=== PATIENT | female | born 1935 | race Caucasian/White ===

== ENCOUNTER 2017-05-24 12:26 | Inpatient (IN) | payer MEDICARE, BC ==
[~2017-05-24] VITALS: Ht 149.9 cm; Wt 75.5 kg
[2017-05-24] VITALS (9 sets, daily range): BP systolic 119–147; BP diastolic 58–65; PULSE 59–64; RESP 16–20; TEMP 96.9–97.7; O2SAT 98–100
[2017-05-24] MEDS ORDERED: IODIXANOL 320 MG/ML 10 ML VIAL (for Rad CT) IVCONTRAST ONE (12:27)
[2017-05-24] MEDS ORDERED: SODIUM CHLOR 0.9% 1000 ML INJ 1,000 ML IV ONE (12:40)
--- NOTE | 2017-05-24 12:45 | PD ---
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 PATIENT BROUGHT IN, AND CALLED A STROKE ALERT. PATIENT WAS NOT RESPONSIVE AAND UNABLE TO OBTAIN FURTHER HISTORY....ALL HISTORY OBTAINED FROM [place] PCP: [facility] PMHX: REPEATED FALLS, THROMBOCYTOPENIC, TIB FIB FX TO RIGHT WITH BOOT NONOPERATIVE DUE TO HIGH RISK OF BLEED, DEMENTIA PFSH Social History Tobacco Use: No Allergies-Medications (Allergen,Severity, Reaction): Coded Allergies: No Known Allergies (Unverified , 05/26/17) Reported Meds & Prescriptions Reported Meds & Active Scripts Active Reported Tramadol (Tramadol HCl) 50 Mg Tab 50 Mg PO Q6H PRN Spironolactone 25 Mg Tab 12.5 Mg PO DAILY Rosuvastatin (Rosuvastatin Calcium) 40 Mg Tab 40 Mg PO HS Mirtazapine 15 Mg Tab 15 Mg PO HS Isosorbide Mononitrate 20 Mg Tab 30 Mg PO DAILY Take 2 doses 7 hours apart. Carvedilol 25 Mg Tab 25 Mg PO BID Aspirin 81 (Aspirin) 81 Mg Tabdr 81 Mg PO DAILY Review of Systems ROS Limitations: Altered Mental Status Except as stated in HPI: all other systems reviewed are Neg Physical Exam Exam Limitations: Altered Mental Status Narrative GENERAL: FULL CODE STATUS SKIN: Warm and dry. MULTIPLE AREAS OF ECHYMOSIS OF VARIOUS STAGES OF HEALING HEAD: Atraumatic. Normocephalic. EYES: Pupils equal and round. No scleral icterus. No injection or drainage. ENT: No nasal bleeding or discharge. Mucous membranes pink and moist. NECK: Trachea midline. No JVD. CARDIOVASCULAR: Regular rate and rhythm. RESPIRATORY: No accessory muscle use. Clear to auscultation. Breath sounds equal bilaterally. GASTROINTESTINAL: Abdomen soft, non-tender, nondistended. MUSCULOSKELETAL: Extremities without clubbing, cyanosis, or edema. No obvious deformities. NEUROLOGICAL INITIALLY UNRESPONSIVE GCS: E-4 V-1 M-1 YET ABLE TO TAKE INDEPENDANT BREATHS WITH GOOD VENTILATORY EFFORT.... PSYCHIATRIC: Appropriate mood and affect; insight and judgment normal. Data Data Last Documented VS Orders Orders Diet Npo (05/24/17 Lunch) Activity Bed Rest (05/24/17 ) Electrocardiogram (05/24/17 ) I-Stat Creatinine (05/24/17 12:40) I-Stat Profile (05/24/17 12:40) Prothrombin Time / Inr (Pt) (05/24/17 12:40) Act Partial Throm Time (Ptt) (05/24/17 12:40) Complete Blood Count With Diff (05/24/17 12:40) Fibrinogen (05/24/17 12:40) Creatine Kinase (Cpk) (05/24/17 12:40) Troponin I (05/24/17 12:40) Ua Includes Microscopic (05/24/17 12:40) Drug Screen, Random Urine (05/24/17 12:40) Type And Screen (05/24/17 12:40) Ct Brain W/O Iv Contrast(Rout) (05/24/17 ) Chest, Single Ap (05/24/17 ) Cta Brain W Iv Contrast W 3d (05/24/17 12:40) Cta Neck W Iv Contrast W 3d (05/24/17 12:40) Consult Neurology (05/24/17 ) Blood Glucose (05/24/17 12:40) Ecg Monitoring (05/24/17 12:40) Neuro Checks Q2HX12,Q4H (05/24/17 12:40) Nursing Bedside Swallow Assess .ONCE (05/24/17 12:40) Iv Access Insert/Monitor (05/24/17 12:40) NPO (05/24/17 12:40) Oximetry (05/24/17 12:40) Oxygen Administration (05/24/17 12:40) Sodium Chlor 0.9% 1000 Ml Inj (Ns 1000 M (05/24/17 12:40) Resp Oxygen Nimesh C Titrat 1-4 L (05/24/17 12:40) Cath For Specimen (05/24/17 12:40) (Hub Use Only)Inp Phy Cons/Ref (05/24/17 13:07) Iodixanol 320 Inj (Rad Ct) (Visipaque 32 (05/24/17 12:27) Lactic Acid Sepsis Protocol (05/24/17 13:52) Admit Order (Ed Use Only) (05/24/17 14:12) Sales Operations Assistant / Telemetry PRABHAKAR.Q8H (05/24/17 14:12) Activity Bed Rest (05/24/17 14:12) Notify Dr: Other (05/24/17 14:12) Labs Laboratory Tests Test 05/24/17 12:42 05/24/17 13:45 White Blood Count 4.4 TH/MM3 Red Blood Count 2.94 MIL/MM3 Hemoglobin 9.5 GM/DL Bedside Hemoglobin 8.5 G/DL Hematocrit 27.6 % Bedside Hematocrit 25.0 % Mean Corpuscular Volume 94.1 FL Mean Corpuscular Hemoglobin 32.4 PG Mean Corpuscular Hemoglobin Concent 34.4 % Red Cell Distribution Width 16.0 % Platelet Count 71 TH/MM3 Mean Platelet Volume 10.7 FL Neutrophils (%) (Auto) 69.2 % Lymphocytes (%) (Auto) 16.4 % Monocytes (%) (Auto) 11.3 % Eosinophils (%) (Auto) 2.7 % Basophils (%) (Auto) 0.4 % Neutrophils # (Auto) 3.1 TH/MM3 Lymphocytes # (Auto) 0.7 TH/MM3 Monocytes # (Auto) 0.5 TH/MM3 Eosinophils # (Auto) 0.1 TH/MM3 Basophils # (Auto) 0.0 TH/MM3 CBC Comment AUTO DIFF Differential Comment AUTO DIFF CONFIRMED Platelet Estimate LOW Platelet Morphology Comment NORMAL Polychromasia 2.0 % Prothrombin Time 13.6 SEC Prothromb Time International Ratio 1.2 RATIO Activated Partial Thromboplast Time 29.6 SEC Fibrinogen 248 mg/dL Bedside Sodium 139 MMOL/L Bedside Potassium 3.7 MMOL/L Bedside Chloride 100 MMOL/L Bedside Blood Urea Nitrogen 14 MG/DL Bedside Creatinine 0.7 MG/DL Bedside Glucose 126 MG/DL Lactic Acid Level 1.0 mmol/L Total Creatine Kinase 161 U/L Troponin I 0.12 NG/ML Urine Color YELLOW Urine Turbidity CLEAR Urine pH 5.5 Urine Specific [place] 1.014 Urine Protein 30 mg/dL Urine Glucose (UA) NEG mg/dL Urine Ketones NEG mg/dL Urine Occult Blood NEG Urine Nitrite NEG Urine Bilirubin NEG Urine Urobilinogen LESS THAN 2.0 MG/DL Urine Leukocyte Esterase NEG Urine RBC LESS THAN 1 /hpf Urine WBC 1 /hpf Urine Mucus FEW /lpf Urine Opiates Screen NEG Urine Barbiturates Screen NEG Urine Amphetamines Screen NEG Urine Benzodiazepines Screen NEG Urine Cocaine Screen NEG Urine Cannabinoids Screen NEG MDM Medical Decision Making Medical Screen Exam Complete: Yes Emergency Medical Condition: Yes Medical Record Reviewed: Yes Interpretation(s) PACED RHYTHM 60'S Differential Diagnosis ICH V CVA V SEIZURE V ELECTROLYTE ABNL V SYNCOPE V STEMI V NONSTEMI Narrative Course PATIENT CT NEG FOR ICH/ANEURYSM OR THROMBOTIC EPISODE. NOT A CANDIDATE FOR THROMBOLYTICS DUE TO RAPID RESOLUTION OF SYMPTOMS (RESOLVED WITHIN 45MIN OF ONSET). PATIENT BECAME A/O X3 AND GCS 14/15, AND ABLE TO FOLLOW COMMANDS, KNEW HER NAME/ BUT THOUGHT IT WAS 2011. Critical Care Narrative CRITICAL CARE NOTE: With evaluation of the patient, labs, EKG, receipt of radiologic studies, administration of medications, reevaluation the patient and discussion of the patient with the admitting physicians, the total critical care time was [45] minutes. Time to perform other separately billable procedures was not included in the critical care time. Physician Communication Physician Communication D/W DR GILDARDO PAYAN WHO AGREED PT IS NOT A CANDIDATE FOR LYTICS, D/W DR MULLEN WHO WILL ADMIT Diagnosis Primary Impression: AMS RESOLVED Additional Impressions: NONSTEMI POSSIBLE SYNCOPE VS SEIZURE Admitting Information Admitting Physician Requests: Admit Dagoberto Solares MD May 24, 2017 12:45
[2017-05-24 12:58] LABS: I-STAT POTASSIUM 3.7 MMOL/L (3.5-4.9)
--- NOTE | 2017-05-24 13:01 | RADRPT ---
EXAM DATE/TIME: 05/24/2017 12:49 [facility] COMPARISON: No previous studies available for comparison. INDICATIONS : Stroke alert, unresponsive. History of dementia. RADIATION DOSE: 32.56 CTDIvol (mGy) This report was called by Dr Engel to Dr Solares at 1256 MEDICAL HISTORY : Non-responsive. SURGICAL HISTORY : Non-responsive. ENCOUNTER: Initial ACUITY: 1 day PAIN SCALE: Non-responsive LOCATION: cranial TECHNIQUE: Multiple contiguous axial images were obtained of the head. Using automated exposure control and adj ustment of the mA and/or kV according to patient size, radiation dose was kept as low as reasonably a chievable to obtain optimal diagnostic quality images. DICOM format image data is available electro nically for review and comparison. FINDINGS: Atrophy is observed. Ventriculomegaly. Periventricular low attenuation change involving both cerebral hemispheres. Area of encephalomalacia involving the right frontal lobe. Small chronic lacunar infarc tion involving the left cerebellar hemisphere. No hemorrhage, acute infarction, or mass. Chronic pans inus disease observed. Calvarium is intact. CONCLUSION: 1. No hemorrhage or acute infarction. 2. Atrophy, chronic small vessel ischemic change, and right frontal encephalomalacia. 3. Chronic [place] sinus disease. Hay Engel Jr., MD on May 24, 2017 at 12:55 Board Certified Radiologist. This report was verified electronically.
[2017-05-24 13:08] LABS: APTT (PATIENT) 29.6 SEC (24.3-30.1); AUTOMATED NEUTROPHIL # 3.1 TH/MM3 (1.8-7.7); BASOPHIL % 0.4 % (0.0-2.0); EOSINOPHIL # 0.1 TH/MM3 (0-0.4); EOSINOPHIL % 2.7 % (0.0-4.0); HEMATOCRIT 27.6 % (35.0-46.0); INTERNATIONAL NORMALIZED RATIO 1.2 RATIO; LYMPH % 16.4 % (9.0-44.0); LYMPHOCYTE # 0.7 TH/MM3 (1.0-4.8); MEAN CELL VOLUME 94.1 FL (80.0-100.0); MEAN CORPUSCULAR HEMOGLOBIN 32.4 PG (27.0-34.0); MEAN CORPUSCULAR HGB CONC 34.4 % (32.0-36.0); MONO % 11.3 % (0.0-8.0); NEUT % 69.2 % (16.0-70.0); PLATELET COUNT 71 TH/MM3 (150-450); PROTHROMBIN TIME - PATIENT 13.6 SEC (9.8-11.6); RED BLOOD COUNT 2.94 MIL/MM3 (4.00-5.30); WHITE BLOOD COUNT 4.4 TH/MM3 (4.0-11.0)
[2017-05-24 13:23] LABS: HEMO FLAGS AUTO DIFF
--- NOTE | 2017-05-24 13:27 | RADRPT ---
EXAM DATE/TIME: 05/24/2017 12:49 [facility] COMPARISON: No previous studies available for comparison. INDICATIONS : Stroke alert found unresponsive IV CONTRAST: 50 cc Visipaque (iodixanol) IV ; Cumulative dose for multiple exams. RADIATION DOSE: 27.00 CTDIvol (mGy) ; Combined studies MEDICAL HISTORY : Non-responsive. SURGICAL HISTORY : Non-responsive. ENCOUNTER: Initial ACUITY: 1 day PAIN SCALE: Non-responsive LOCATION: cranial TECHNIQUE: Volumetric scanning was performed using a multi-row detector CT scanner. The data was post processed with a variety of visualization algorithms including full volume maximum intensity projection, multi -planar sliding thin slab reformation, curved planar reformation, and surface rendering techniques. Using automated exposure control and adjustment of the mA and/or kV according to patient size, radiat ion dose was kept as low as reasonably achievable to obtain optimal diagnostic quality images. DICO M format image data is available electronically for review and comparison. FINDINGS: There is excellent visualization of the major intracranial arteries out to the second-order branch ve ssels. There is no evidence for aneurysm, vessel truncation or stenosis, and no evidence for vascula r malformation. CONCLUSION: No luminal filling defects to suggest embolus or thrombus. A wet reading was supplied to Dr. Solares at 1324 hrs. Hay Engel Jr., MD on May 24, 2017 at 13:23 Board Certified Radiologist. This report was verified electronically.
--- NOTE | 2017-05-24 13:30 | RADRPT ---
EXAM DATE/TIME: 05/24/2017 12:49 [facility] COMPARISON: No previous studies available for comparison. INDICATIONS : Stroke alert, unresponsive IV CONTRAST: 50 cc Visipaque (iodixanol) IV ; Cumulative dose for multiple exams. RADIATION DOSE: 27.78 CTDIvol (mGy) ; Combined studies MEDICAL HISTORY : Non-responsive. SURGICAL HISTORY : Non-responsive. ENCOUNTER: Initial ACUITY: 1 day PAIN SCALE: Non-responsive LOCATION: neck Elevated flow velocities and ICA/CCA ratios have been found to correlate with increased degrees of vessel stenosis, calculated as percentage of diameter relative to a normal segment of distal ICA/CCA. TECHNIQUE: Volumetric scanning was performed using a multirow detector CT scanner. The data was post processed with a variety of visualization algorithms including full-volume maximum intensity projection, multip lanar sliding thin-slab reformation, curved-planar reformation, and surface-rendering techniques. Us ing automated exposure control and adjustment of the mA and/or kV according to patient size, radiatio n dose was kept as low as reasonably achievable to obtain optimal diagnostic quality images. DICOM f ormat image data is available electronically for review and comparison. FINDINGS: AORTIC ARCH: There is a three-vessel origin of the great vessels from the aorta. No evidence of ostial narrowing. RIGHT CAROTID: The common carotid artery is intact. The carotid bulb has a normal configuration without ulceration or narrowing. The internal carotid artery has calcified plaque without hemodynamically significant s tenosis. No ulceration. The external carotid artery is intact. LEFT CAROTID: The common carotid artery is intact. The carotid bulb has a normal configuration without ulceration or narrowing. The internal carotid artery has calcified plaque without hemodynamically significant s tenosis. No ulceration. The external carotid artery is intact. VERTEBRALS: The vertebral arteries have a symmetric diameter. No stenotic lesions are seen. CONCLUSION: 1. Calcified plaque involving the ICA origins without a hemodynamically significant stenosis. Hay Engel Jr., MD on May 24, 2017 at 13:26 Board Certified Radiologist. This report was verified electronically.
--- NOTE | 2017-05-24 13:30 | RADRPT ---
EXAM DATE/TIME: 05/24/2017 12:59 [facility] COMPARISON: No previous studies available for comparison. INDICATIONS : Stroke alert. MEDICAL HISTORY : Unresponsive. SURGICAL HISTORY : Pacemaker. ENCOUNTER: Initial ACUITY: 1 day PAIN SCORE: Non-responsive. LOCATION: Bilateral chest FINDINGS: There is dense consolidation in the left lower lung causing loss of delineation of the medial and mid left hemidiaphragm. Hazy opacity is present in the right lower lung with some blunting of the costo phrenic angle on both sides suggesting bilateral pleural effusions. The heart is normal size. Bipol ar cardiac pacer leads. Stent device overlies the lower mediastinum. CONCLUSION: 1. Left lower lobar consolidation. 2. Probable small bilateral pleural effusions. Hay Langford MD on May 24, 2017 at 13:27 Board Certified Radiologist. This report was verified electronically.
[2017-05-24 13:46] LABS: PLATELET ESTIMATE SMEAR LOW (NORMAL); PLATELET MORPHOLOGY NORMAL (NORMAL); SCAN/DIFF AUTO DIFF CONFIRMED
[2017-05-24 14:14] LABS: BLOOD, URINE NEG (NEG); GLUCOSE,URINE NEG (NEG); KETONE, URINE NEG (NEG); MUCUS URINE FEW /lpf (OCC); NITRITE,URINE NEG (NEG); PH, URINE 5.5 (5.0-8.5); URINE COLOR YELLOW (YELLW/STRAW)
[2017-05-24] MEDS ORDERED: SODIUM CHLORIDE 0.9% FLUSH 10 ML FLUSH IV FLUSH PRN (14:15)
[2017-05-24] MEDS ORDERED: ROSU1TAB10 PO (15:46)
[2017-05-24] MEDS ORDERED: ISOS20TA PO (15:46)
[2017-05-24] MEDS ORDERED: TRAM50TA PO (15:46)
[2017-05-24] MEDS ORDERED: CARV25TA PO (15:46)
[2017-05-24] MEDS ORDERED: MIRTA15 PO (15:46)
[2017-05-24] MEDS ORDERED: SPIR25TA PO (15:46)
[2017-05-24] MEDS ORDERED: APLXABAN (15:46)
[2017-05-24] MEDS ORDERED: ASPI1TAB57 PO (15:46)
[2017-05-24] MEDS: SODIUM CHLORIDE 0.9% FLUSH 10 ML FLUSH IV FLUSH SCH (21:33)
[2017-05-25] VITALS (7 sets, daily range): BP systolic 106–152; BP diastolic 53–74; PULSE 60–71; RESP 18–22; TEMP 97.2–98.3; O2SAT 92–100
--- NOTE | 2017-05-25 00:26 | MB ---
cc: UMBERTO HANLEY DATE OF CONSULTATION 05/24/17 HISTORY OF PRESENT ILLNESS Ms. Mays is an 81-year-old white female with a history of dementia, was brought from te longterm after she became unresponsive. She was seen in the emergency room and did not receive thrombolytics since her symptoms resolved within 45 minutes of onset. She denies any chest pain or shortness or breath. She states she is feeling well. PAST MEDICAL HISTORY Positive for dementia, recurrent falls, thrombocytopenia. Tib/fib fracture treated conservatively due to high risk of bleeding with surgery. MEDICATIONS Include: 1. Eliquis 2.5 milligrams twice a day. 2. Mirtazapine. 3. Tramadol. 4. Aspirin 81 milligrams a day. 5. Spironolactone. 6. Carvedilol isosorbide. 7. Rosuvastatin. ALLERGIES None. SOCIAL HISTORY The patient does not smoke. She does not drink alcohol. FAMILY HISTORY Negative for heart disease. REVIEW OF SYSTEMS Otherwise negative. PHYSICAL EXAMINATION VITAL SIGNS: Blood pressure 141/63, pulse 61 and regular. HEENT: Negative. 2+ carotid upstrokes. No bruits. LUNGS: Clear. HEART: Regular with no murmur or gallop. ABDOMEN: Soft. No bruits. EXTREMITIES: With mild 1 to 2+ LE edema. The right lower extremity is in a boot. 1-2+ pulses. NEUROLOGIC: Grossly nonfocal. CARDIOLOGY STUDIES EKG was reviewed and showed ventricular pacing. LABORATORY DATA Hemoglobin 9.5, potassium 3.7, creatinine 0.7, troponin 0.12. DIAGNOSIS 1. Altered mental status. 2. Possible TIA. 3. Slightly abnormal troponin. 4. Thrombocytopenia. 5. Dementia. 6. History of tib/fib fracture. 7. Recurrent falls. DISPOSITION Ms. Mays will be monitored on telemetry. She has not had any angina or heart failure symptoms. We will obtain echocardiogram to evaluate her left ventricle function. We will also obtain serial enzymes and EKGs. I will follow her for cardiology during her hospitalization. Umberto Hanley MD OQ/EO /7:45 PM /12:08 AM JANAE
--- NOTE | 2017-05-25 00:35 | MB ---
cc: MILAN EWING M.D. DATE OF CONSULTATION 05/24/17 HISTORY OF PRESENT ILLNESS She is an 81-year-old seen in neurological consultation. Case discussed with Dr. Solares on a couple of occasions as she came as a stroke alert. The patient was transferred from the nursing facility where she has been recovering apparently since she had a right tibial fracture recently. She was unresponsive and brought to the hospital. Initially, she was nonverbal, though moving the extremities and establishing eye contact. She went for a CT brain which was negative for acute findings, it showed right frontal encephalomalacia. We did not feel she was a candidate for TPA because of multiple factors including her medications which were Eliquis and she also had the thrombocytopenia. After the initial evaluation then with stimulation the patient became verbal and seemed to be more in baseline state. I obtained additional history from nursing staff. Apparently, she has been intermittently more confused in the past couple of weeks but she also has a history of dementia. NEUROLOGICAL EXAMINATION The patient's neurological exam this evening about 1/2 hour ago showed her to be awake, appeared alert, verbal but poorly oriented. She knew she was in the hospital but did not know the name. She thought she was in [place]. She was oriented to her name but did not know her exact age. She did not know why she came to the hospital. She followed simple commands and she was pleasant, gripped and moved all four extremities. She has a right lower extremity boot and there is some edema on the left lower extremity. Reflexes were 1+, plantar response probably flexor on the left. She was able to count fingers on the left and right. ASSESSMENT Mostly resolved encephalopathic change. Diagnostic considerations include TIA, seizure, metabolic encephalopathy on the setting of an underlying dementia. We will order an EEG. The CT angio head and neck were essentially unremarkable. She will possibly have an MRI brain without contrast. Otherwise, supportive general medical care. She is to have physical therapy. I will follow the neurological care. The management and indications for Eliquis is medical and not neurological at this point. Thank you for asking us to assist in her care. Milan Ewing MD OFC/EO /8:17 PM /12:22 AM
[2017-05-25 03:53] LABS: BASOPHIL % 0.5 % (0.0-2.0); EOSINOPHIL # 0.1 TH/MM3 (0-0.4); EOSINOPHIL % 2.6 % (0.0-4.0); HEMATOCRIT 26.2 % (35.0-46.0); LYMPH % 13.6 % (9.0-44.0); LYMPHOCYTE # 0.7 TH/MM3 (1.0-4.8); MEAN CELL VOLUME 94.2 FL (80.0-100.0); MEAN CORPUSCULAR HEMOGLOBIN 31.6 PG (27.0-34.0); MEAN CORPUSCULAR HGB CONC 33.5 % (32.0-36.0); MONO % 9.9 % (0.0-8.0); NEUT % 73.4 % (16.0-70.0); PLATELET COUNT 78 TH/MM3 (150-450); RED BLOOD COUNT 2.78 MIL/MM3 (4.00-5.30); RED CELL DISTRIBUTION WIDTH 16.6 % (11.6-17.2); WHITE BLOOD COUNT 5.5 TH/MM3 (4.0-11.0)
[2017-05-25 04:15] LABS: HEMO FLAGS DIFF FINAL
[2017-05-25 04:25] LABS: ANION GAP 10 MEQ/L (5-15); BICARBONATE 24.2 MEQ/L (21.0-32.0); BLOOD UREA NITROGEN 14 MG/DL (7-18); CHLORIDE 107 MEQ/L (98-107); GLOMERULAR FILTRATION RATE 97 ML/MIN (>89); POTASSIUM 3.6 MEQ/L (3.5-5.1); SODIUM (NA) 141 MEQ/L (136-145)
[2017-05-25 04:28] LABS: HDL CHOLESTEROL 26.2 MG/DL (40.0-60.0)
[2017-05-25 04:31] LABS: LDL CHOLESTEROL 12 MG/DL (0-99)
--- NOTE | 2017-05-25 07:39 | PD.CARD.PN ---
Subjective Subjective Remarks No CP or SOB, mild confusion, comfortable Objective Medications Current Medications Medications (Trade) Dose Ordered Sig/Linda Route Start Time Stop Time Status Last Admin (NS Flush) 2 ml BID IV FLUSH 05/24/17 21:00 05/24/17 21:33 (NS Flush) 2 ml UNSCH PRN IV FLUSH 05/24/17 14:15 (Tylenol) 500 mg Q4H PRN PO 05/24/17 14:15 Vital Signs / I&O Vital Signs Date Time Temp Pulse Resp B/P (MAP) Pulse Ox O2 Delivery O2 Flow Rate FiO2 05/25/17 04:46 98.3 63 22 138/60 (86) 98 05/25/17 00:00 97.7 60 22 106/53 (70) 98 05/24/17 20:15 97.5 61 18 139/65 (89) 99 05/24/17 20:00 60 05/24/17 16:25 97.7 61 16 141/63 (89) 100 05/24/17 16:20 05/24/17 16:09 64 20 119/60 (79) 100 Nasal Cannula 2.00 05/24/17 15:00 60 05/24/17 14:00 60 20 130/60 (83) 100 Nasal Cannula 2.00 05/24/17 13:43 98 Nasal Cannula 2.00 05/24/17 13:42 96.9 59 20 129/58 (81) 98 Nasal Cannula 2.00 05/24/17 12:45 Nasal Cannula 2.00 05/24/17 12:44 60 18 147/61 (89) I/O 05/24/17 05/24/17 05/24/17 05/25/17 05/25/17 05/25/17 07:00 15:00 23:00 07:00 15:00 23:00 Intake Total 1072 ml Output Total 650 ml 100 ml Balance -650 ml 972 ml Intake Oral 120 ml IV Total 952 ml Output Urine Total 650 ml 100 ml # Bowel Movements 1 Physical Exam GENERAL: In NAD SKIN: Warm and dry. HEAD: Normocephalic. EYES: No scleral icterus. No injection or drainage. NECK: Supple, trachea midline. No JVD or lymphadenopathy. CARDIOVASCULAR: Regular rate and rhythm without murmurs, gallops, or rubs. RESPIRATORY: Breath sounds equal bilaterally. No accessory muscle use. GASTROINTESTINAL: Abdomen soft, non-tender, nondistended. MUSCULOSKELETAL: No cyanosis, or edema. Mildly confused Laboratory Laboratory Tests Test 05/24/17 12:42 05/24/17 13:45 05/24/17 17:52 05/24/17 19:52 White Blood Count 4.4 TH/MM3 Red Blood Count 2.94 MIL/MM3 Hemoglobin 9.5 GM/DL Bedside Hemoglobin 8.5 G/DL Hematocrit 27.6 % Bedside Hematocrit 25.0 % Mean Corpuscular Volume 94.1 FL Mean Corpuscular Hemoglobin 32.4 PG Mean Corpuscular Hemoglobin Concent 34.4 % Red Cell Distribution Width 16.0 % Platelet Count 71 TH/MM3 Mean Platelet Volume 10.7 FL Neutrophils (%) (Auto) 69.2 % Lymphocytes (%) (Auto) 16.4 % Monocytes (%) (Auto) 11.3 % Eosinophils (%) (Auto) 2.7 % Basophils (%) (Auto) 0.4 % Neutrophils # (Auto) 3.1 TH/MM3 Lymphocytes # (Auto) 0.7 TH/MM3 Monocytes # (Auto) 0.5 TH/MM3 Eosinophils # (Auto) 0.1 TH/MM3 Basophils # (Auto) 0.0 TH/MM3 CBC Comment AUTO DIFF Differential Comment AUTO DIFF CONFIRMED Platelet Estimate LOW Platelet Morphology Comment NORMAL Polychromasia 2.0 % Prothrombin Time 13.6 SEC Prothromb Time International Ratio 1.2 RATIO Activated Partial Thromboplast Time 29.6 SEC Fibrinogen 248 mg/dL Bedside Sodium 139 MMOL/L Bedside Potassium 3.7 MMOL/L Bedside Chloride 100 MMOL/L Bedside Blood Urea Nitrogen 14 MG/DL Bedside Creatinine 0.7 MG/DL Bedside Glucose 126 MG/DL Lactic Acid Level 1.0 mmol/L Total Creatine Kinase 161 U/L Troponin I 0.12 NG/ML 0.10 NG/ML Urine Color YELLOW Urine Turbidity CLEAR Urine pH 5.5 Urine Specific [place] 1.014 Urine Protein 30 mg/dL Urine Glucose (UA) NEG mg/dL Urine Ketones NEG mg/dL Urine Occult Blood NEG Urine Nitrite NEG Urine Bilirubin NEG Urine Urobilinogen LESS THAN 2.0 MG/DL Urine Leukocyte Esterase NEG Urine RBC LESS THAN 1 /hpf Urine WBC 1 /hpf Urine Mucus FEW /lpf Urine Opiates Screen NEG Urine Barbiturates Screen NEG Urine Amphetamines Screen NEG Urine Benzodiazepines Screen NEG Urine Cocaine Screen NEG Urine Cannabinoids Screen NEG Vitamin B12 Level 1199 PG/ML Test 05/25/17 03:29 White Blood Count 5.5 TH/MM3 Red Blood Count 2.78 MIL/MM3 Hemoglobin 8.8 GM/DL Hematocrit 26.2 % Mean Corpuscular Volume 94.2 FL Mean Corpuscular Hemoglobin 31.6 PG Mean Corpuscular Hemoglobin Concent 33.5 % Red Cell Distribution Width 16.6 % Platelet Count 78 TH/MM3 Mean Platelet Volume 11.0 FL Neutrophils (%) (Auto) 73.4 % Lymphocytes (%) (Auto) 13.6 % Monocytes (%) (Auto) 9.9 % Eosinophils (%) (Auto) 2.6 % Basophils (%) (Auto) 0.5 % Neutrophils # (Auto) 4.0 TH/MM3 Lymphocytes # (Auto) 0.7 TH/MM3 Monocytes # (Auto) 0.5 TH/MM3 Eosinophils # (Auto) 0.1 TH/MM3 Basophils # (Auto) 0.0 TH/MM3 CBC Comment DIFF FINAL Differential Comment Blood Urea Nitrogen 14 MG/DL Creatinine 0.59 MG/DL Random Glucose 99 MG/DL Calcium Level 7.7 MG/DL Sodium Level 141 MEQ/L Potassium Level 3.6 MEQ/L Chloride Level 107 MEQ/L Carbon Dioxide Level 24.2 MEQ/L Anion Gap 10 MEQ/L Estimat Glomerular Filtration Rate 97 ML/MIN Troponin I 0.09 NG/ML Triglycerides Level 58 MG/DL Cholesterol Level LESS THAN 50 MG/DL LDL Cholesterol 12 MG/DL HDL Cholesterol 26.2 MG/DL Cholesterol/HDL Ratio 1.90 RATIO Imaging Last 24 hours Impressions Neck CTA 05/24/17 1240 Signed Impressions: Service Date/Time: Wednesday, May 24, 2017 12:49 - CONCLUSION: 1. Calcified plaque involving the ICA origins without a hemodynamically significant stenosis. Hay Engel Jr., MD Head CTA 05/24/17 1240 Signed Impressions: Service Date/Time: Wednesday, May 24, 2017 12:49 - CONCLUSION: No luminal filling defects to suggest embolus or thrombus. A wet reading was supplied to Dr. Solares at 1324 hrs. Hay Engel Jr., MD Assessment and Plan Problem List: (1) Altered mental status ICD Codes: R41.82 - Altered mental status, unspecified (2) TIA (transient ischemic attack) ICD Codes: G45.9 - Transient cerebral ischemic attack, unspecified (3) Dementia ICD Codes: F03.90 - Unspecified dementia without behavioral disturbance (4) Elevated troponin ICD Codes: R74.8 - Abnormal levels of other serum enzymes Assessment and Plan No new cardiac issues. No angina or CHF symptoms. No clear evidence of ACS. Troponins stable without any trend. Echo today. Continue monitoring. MS improved. Neuro eval in progress. Increase activity. Umberto Ellis MD May 25, 2017 07:39
[2017-05-25] MEDS: SODIUM CHLORIDE 0.9% FLUSH 10 ML FLUSH IV FLUSH SCH ×2 (10:33→20:27)
--- NOTE | 2017-05-25 11:30 | ECHRPT ---
Indication: CVA/TIA CONCLUSIONS Mild concentric left ventricular hypertrophy. The left ventricular systolic function is low normal with an estimated ejection fraction in the rang e of 50- 55%. No definite wall motion abnormalities. Normal left ventricular size. Mild mitral valve regurgitation. There is mild tricuspid valve regurgitation. The estimated pulmonary arterial pressure is 38 mmHg. BP: 138 / 60 HR: 63 Rhythm: Sinus MEASUREMENTS (Male / Female) Normal Values Technical Quality:Fair 2D ECHO LV Diastolic Diameter PLAX 3.8 cm 4.2 - 5.9 / 3.9 - 5.3 cm LV Systolic Diameter PLAX 3.2 cm IVS Diastolic Thickness 1.3 cm 0.6 - 1.0 / 0.6 - 0.9 cm LVPW Diastolic Thickness 1.2 cm 0.6 - 1.0 / 0.6 - 0.9 cm LV Relative Wall Thickness 0.7 LVOT Diameter 1.8 cm M-MODE Aortic Root Diameter MM 2.3 cm LA Systolic Diameter MM 3.7 cm LA Ao Ratio MM 1.6 AV Cusp Separation MM 1.7 cm DOPPLER AV Peak Velocity 185.0 cm/s AV Peak Gradient 13.7 mmHg LVOT Peak Velocity 106.0 cm/s LVOT Peak Gradient 4.5 mmHg AV Area Cont Eq pk 1.5 cm MR Peak Velocity 370.5 cm/s MR Peak Gradient 54.9 mmHg TR Peak Velocity 267.0 cm/s TR Peak Gradient 28.5 mmHg Right Atrial Pressure 10.0 mmHg Pulmonary Artery Systolic Pressu 38.5 mmHg Right Ventricular Systolic Press 38.5 mmHg PV Peak Velocity 102.0 cm/s PV Peak Gradient 4.2 mmHg FINDINGS LEFT VENTRICLE Mild concentric left ventricular hypertrophy. The left ventricular systolic function is low normal with an estimated ejection fraction in the rang e of 50- 55%. No definite wall motion abnormalities. Normal left ventricular size. RIGHT VENTRICLE Normal right ventricular size and systolic function. LEFT ATRIUM The left atrial size is normal. RIGHT ATRIUM The right atrial size is normal. ATRIAL SEPTUM Normal atrial septal thickness without atrial level shunting by limited color doppler interrogation. AORTA The aortic root and proximal ascending aorta are normal in size on limited imaging. MITRAL VALVE Mild mitral valve regurgitation. AORTIC VALVE Trileaflet aortic valve. No aortic valve stenosis or regurgitation. TRICUSPID VALVE There is mild tricuspid valve regurgitation. The estimated pulmonary arterial pressure is 38 mmHg. PULMONARY VALVE Trivial pulmonary valve regurgitation. VESSELS The inferior vena cava is normal in size. PERICARDIUM No pericardial effusion. Jose E Puente MD (Electronically Signed) Final Date:25 May 2017 11:29
--- NOTE | 2017-05-25 13:49 | HHI.HP ---
History of Present Illness Service Medicine Primary Care Physician Unknown Admission Diagnosis AMS,NONSTEMI Diagnoses: History of Present Illness Patient is an 81-year-old female from [facility] who during PT became unresponsive and had tremors all over. Patient is at [facility] rehabilitation s/p right tibial fracture. In the ER she was initially non verbal but then returning to baseline. Patient was also found to have positive trops. She is admitted for evaluation. Review of Systems Constitutional: DENIES: Fatigue Respiratory: DENIES: Cough, Wheezing, Sputum production Cardiovascular: DENIES: Chest pain, Palpitations, Dyspnea on Exertion Gastrointestinal: DENIES: Abdominal pain, Constipation, Diarrhea Neurologic: COMPLAINS OF: Speech Problems, Poor Balance Psychiatric: DENIES: Anxiety, Depression Past Family Social History Allergies: Coded Allergies: MRI PRECAUTION (Verified Adverse Reaction, Severe, NON COMPATIBLE PACEMAKER. LRS 05/25/17, 05/25/17) [employer] RESTORE PACEMAKER MODEL [id number] Past Medical History HTN [place] HLD Active Ordered Medications Current Medications Medications (Trade) Dose Ordered Sig/Linda Route Start Time Stop Time Status Last Admin (NS Flush) 2 ml BID IV FLUSH 05/24/17 21:00 05/25/17 10:33 (NS Flush) 2 ml UNSCH PRN IV FLUSH 05/24/17 14:15 (Tylenol) 500 mg Q4H PRN PO 05/24/17 14:15 05/25/17 14:05 Social History Denies any smoking Denies ETOH use Lives with family Physical Exam Vital Signs Vital Signs Date Time Temp Pulse Resp B/P (MAP) Pulse Ox O2 Delivery O2 Flow Rate FiO2 05/25/17 12:00 97.9 61 18 136/58 (84) 99 05/25/17 10:45 Nasal Cannula 1.50 05/25/17 08:00 97.3 65 18 152/72 (98) 99 05/25/17 08:00 64 05/25/17 04:46 98.3 63 22 138/60 (86) 98 05/25/17 00:00 97.7 60 22 106/53 (70) 98 05/24/17 20:15 97.5 61 18 139/65 (89) 99 05/24/17 20:00 60 05/24/17 16:25 97.7 61 16 141/63 (89) 100 05/24/17 16:20 05/24/17 16:09 64 20 119/60 (79) 100 Nasal Cannula 2.00 05/24/17 15:00 60 05/24/17 14:00 60 20 130/60 (83) 100 Nasal Cannula 2.00 Physical Exam GENERAL: Alert mild confusion with speech delay SKIN: Warm and dry. HEAD: Normocephalic. EYES: No scleral icterus. No injection or drainage. NECK: Supple, trachea midline. No JVD or lymphadenopathy. CARDIOVASCULAR: Regular rate and rhythm without murmurs, gallops, or rubs. RESPIRATORY: Breath sounds equal bilaterally. No accessory muscle use. GASTROINTESTINAL: Abdomen soft, non-tender, nondistended. MUSCULOSKELETAL: No cyanosis, or edema. BACK: Nontender without obvious deformity. No CVA tenderness. Laboratory Laboratory Tests Test 05/24/17 17:52 05/24/17 19:52 05/25/17 03:29 Vitamin B12 Level 1199 Troponin I 0.10 0.09 White Blood Count 5.5 Red Blood Count 2.78 Hemoglobin 8.8 Hematocrit 26.2 Mean Corpuscular Volume 94.2 Mean Corpuscular Hemoglobin 31.6 Mean Corpuscular Hemoglobin Concent 33.5 Red Cell Distribution Width 16.6 Platelet Count 78 Mean Platelet Volume 11.0 Neutrophils (%) (Auto) 73.4 Lymphocytes (%) (Auto) 13.6 Monocytes (%) (Auto) 9.9 Eosinophils (%) (Auto) 2.6 Basophils (%) (Auto) 0.5 Neutrophils # (Auto) 4.0 Lymphocytes # (Auto) 0.7 Monocytes # (Auto) 0.5 Eosinophils # (Auto) 0.1 Basophils # (Auto) 0.0 CBC Comment DIFF FINAL Differential Comment Blood Urea Nitrogen 14 Creatinine 0.59 Random Glucose 99 Calcium Level 7.7 Sodium Level 141 Potassium Level 3.6 Chloride Level 107 Carbon Dioxide Level 24.2 Anion Gap 10 Estimat Glomerular Filtration Rate 97 Triglycerides Level 58 Cholesterol Level LESS THAN 50 LDL Cholesterol 12 HDL Cholesterol 26.2 Cholesterol/HDL Ratio 1.90 Result Diagram: 05/25/17 0329 05/25/17 0329 Imaging Last Impressions Neck CTA 05/24/17 1240 Signed Impressions: Service Date/Time: Wednesday, May 24, 2017 12:49 - CONCLUSION: 1. Calcified plaque involving the ICA origins without a hemodynamically significant stenosis. Hay Engel Jr., MD Head CTA 05/24/17 1240 Signed Impressions: Service Date/Time: Wednesday, May 24, 2017 12:49 - CONCLUSION: No luminal filling defects to suggest embolus or thrombus. A wet reading was supplied to Dr. Solares at 1324 hrs. Hay nEgel Jr., MD Head CT 05/24/17 0000 Signed Impressions: Service Date/Time: Wednesday, May 24, 2017 12:49 - CONCLUSION: 1. No hemorrhage or acute infarction. 2. Atrophy, chronic small vessel ischemic change, and right frontal encephalomalacia. 3. Chronic vegas sinus disease. Hay Engel Jr., MD Chest X-Ray 05/24/17 0000 Signed Impressions: Service Date/Time: Wednesday, May 24, 2017 12:59 - CONCLUSION: 1. Left lower lobar consolidation. 2. Probable small bilateral pleural effusions. Hay Langford MD Caprini VTE Risk Assessment Caprini VTE Risk Assessment: Mod/High Risk (score >= 2) Caprini Risk Assessment Model Point Value = 1 Point Value = 2 Point Value = 3 Point Value = 5 Age 41-60 Minor surgery BMI > 25 kg/m2 Swollen legs Varicose veins or History of unexplained or recurrent spontaneous Oral contraceptives or hormone replacement Sepsis (< 1 month) Serious lung disease, including pneumonia (< 1 month) Abnormal pulmonary function Acute myocardial infarction Congestive heart failure (< 1 month) History of inflammatory bowel disease Medical patient at bed rest Age 61-74 Arthroscopic surgery Major open surgery (> 45 min) Laparoscopic surgery (> 45 min) Malignancy Confined to bed (> 72 hours) Immobilizing plaster cast Central venous access Age >= 75 History of VTE Family history of VTE Factor V Leiden Prothrombin [id number] Lupus anticoagulant Anticardiolipin antibodies Elevated serum homocysteine Heparin-induced thrombocytopenia Other congenital or acquired thrombophilia Stroke (< 1 month) Elective arthroplasty Hip, pelvis, or leg fracture Acute spinal cord injury (< 1 month) Prophylaxis Regimen Total Risk Factor Score Risk Level Prophylaxis Regimen 0-1 Low Early ambulation 2 Moderate Order ONE of the following: *Sequential Compression Device (SCD) *Heparin 5000 units SQ BID 3-4 Higher Order ONE of the following medications: *Heparin 5000 units SQ TID *Enoxaparin/Lovenox 40 mg SQ daily (WT < 150 kg, CrCl > 30 mL/min) *Enoxaparin/Lovenox 30 mg SQ daily (WT < 150 kg, CrCl > 10-29 mL/min) *Enoxaparin/Lovenox 30 mg SQ BID (WT < 150 kg, CrCl > 30 mL/min) AND/OR *Sequential Compression Device (SCD) 5 or more Highest Order ONE of the following medications: *Heparin 5000 units SQ TID (Preferred with Epidurals) *Enoxaparin/Lovenox 40 mg SQ daily (WT < 150 kg, CrCl > 30 mL/min) *Enoxaparin/Lovenox 30 mg SQ daily (WT < 150 kg, CrCl > 10-29 mL/min) *Enoxaparin/Lovenox 30 mg SQ BID (WT < 150 kg, CrCl > 30 mL/min) AND *Sequential Compression Device (SCD) Assessment and Plan Problem List: (1) HLD (hyperlipidemia) ICD Codes: E78.5 - Hyperlipidemia, unspecified (2) HTN (hypertension) ICD Codes: I10 - Essential (primary) hypertension (3) Altered mental status ICD Codes: R41.82 - Altered mental status, unspecified (4) Elevated troponin ICD Codes: R74.8 - Abnormal levels of other serum enzymes (5) Dementia ICD Codes: F03.90 - Unspecified dementia without behavioral disturbance (6) TIA (transient ischemic attack) ICD Codes: G45.9 - Transient cerebral ischemic attack, unspecified Assessment and Plan 05/25/17 AMS: Patient with mild confusion. Neurology consulted. No acute findings noted thus far. EEG and MRI ordered. Speech is delayed. PT and OT ordered HX CVA: On statin and ASA HLD: Continue Statin HTN: home medication continued. Positive trop: mildly elevated at 0.09. Cardiology consulted and ECHO pending \Labs in AM I and the CLINICAL ESTHETICIAN have both examined this patient and reviewed this note and I agree with these findings and plan of care. Ambreen Burton. [facility] May 25, 2017 13:49
[2017-05-25] MEDS: ACETAMINOPHEN 500 MG CPLT PO PRN (14:05)
--- NOTE | 2017-05-25 14:37 | EKG ---
Date Performed: 05/24/2017 Time Performed: 12:41:21 PTAGE: 81 years EKG: ELECTRONIC VENTRICULAR PACEMAKER The underlying rhythm is probably atrial fibrillation Comp ared to previous tracing the patient does not appear any longer to be in Sinus rhythm and the rhythm is now paced. Tracings are not directly comparable ABNORMAL RHYTHM ECG PREVIOUS TRACING : 12/02/04 DOCTOR: Emilia Pina Interpretating Date/Time 05/25/2017 14:35:59
[2017-05-25] MEDS ORDERED: traMADol HCL 50 MG TAB PO PRN (16:00)
[2017-05-25] MEDS ORDERED: PILL SPLITTER OTHER PRN (16:00)
--- NOTE | 2017-05-25 16:23 | MG ---
cc: CAMMY BELL M.D. Lab No: [id number] Date: 05/25/2017 Age: 81 Sex: F Race: DATE OF : [address] Das. In room 1417 with photic stimulation, awake, a lot of moaning and head movement noted. CT shows chronic white matter disease, atrophy, right frontal encephalomalacia, stroke alert, change in mental status with a history of dementia, pacemaker, atrial fibrillation. DESCRIPTION OF RECORD There is overall 4-5 Hz background, a lot of artifact, moaning, a little predominant theta frequency noted. Myogenic artifact is seen throughout but more frequent in the frontal eye bailey. EKG is artifactual as well. Photic stimulation without any significant driving response. IMPRESSION Abnormal EEG due to mild moderate slowing consistent with encephalopathic process. No findings to suggest seizure or seizure focus in this one recording. Cammy Bell MD DF/OSKAR /3:40 PM /4:05 PM
--- NOTE | 2017-05-25 17:54 | RADRPT ---
EXAM DATE/TIME: 05/25/2017 17:09 [place] COMPARISON: No previous studies available for comparison. INDICATIONS : CVA. MEDICAL HISTORY : Hypertension. Dementia. Atrial fibrillation. SURGICAL HISTORY : Pacemaker. Back surgery and bilateral cataracts. ENCOUNTER: Initial ACUITY: 1 day PAIN SCORE: 0/10 LOCATION: Head. TECHNIQUE: Multiplanar, multisequence MRI of the brain was performed without contrast. FINDINGS: A small area of abnormal signal involving the cortex and immediate subcortical white matter the left occipital lobe. There is associated restricted diffusion. Loss of signal on the ADC map. No hemorrhag e. A tiny focus of restricted diffusion involving the head of caudate on the left. Extensive perivent ricular high flair signal involving both cerebral hemispheres. Ventriculomegaly and underlying atroph y. Area of encephalomalacia involving the right frontal lobe. Chronic vegas sinus disease. Mastoid air cells are clear. Orbital structures are unremarkable. CONCLUSION: 1. Small nonhemorrhagic infarction involving the left occipital lobe with a tiny focus of nonhemorrha gic infarction involving the left head of caudate. 2. Atrophy and chronic small vessel ischemic change. 3. Encephalomalacia within the right frontal lobe. 4. Chronic vegas sinus disease. Hay Engel Jr., MD on May 25, 2017 at 17:45 Board Certified Radiologist. This report was verified electronically.
--- NOTE | 2017-05-25 18:44 | HHI.PR ---
Review/Management Daily Summary 05/25 I saw her earlier today before mri and she seemed stable and confused spoke to RN at the time i saw her mri results just seen small acute ischemic events, left occipital and caudate, dementia A fib on eliquis 2.5 mg bid and asa 81 mg would continue these meds and supportive care oob with PT Subjective Subjective Comments No acute events reported No headache Active Medications Current Medications Medications (Trade) Dose Ordered Sig/Linda Route Start Time Stop Time Status Last Admin (NS Flush) 2 ml BID IV FLUSH 05/24/17 21:00 05/25/17 10:33 (NS Flush) 2 ml UNSCH PRN IV FLUSH 05/24/17 14:15 (Tylenol) 500 mg Q4H PRN PO 05/24/17 14:15 05/25/17 14:05 (Ecotrin Ec) 81 mg DAILY PO 05/26/17 09:00 (Coreg) 25 mg BID PO 05/25/17 21:00 (Ismo) 30 mg DAILY PO 05/26/17 09:00 (Remeron) 15 mg HS PO 05/25/17 21:00 (Aldactone) 12.5 mg DAILY PO 05/26/17 09:00 (Ultram) 50 mg Q6H PRN PO 05/25/17 16:00 (Lipitor) 80 mg HS PO 05/25/17 21:00 (Pill Splitter) 1 ea UNSCH PRN OTHER 05/25/17 16:00 (Eliquis) 2.5 mg BID PO 05/25/17 21:00 Exam I&O / VS Vital Signs Date Time Temp Pulse Resp B/P (MAP) Pulse Ox O2 Delivery O2 Flow Rate FiO2 05/25/17 12:00 97.9 61 18 136/58 (84) 99 05/25/17 10:45 Nasal Cannula 1.50 05/25/17 08:00 97.3 65 18 152/72 (98) 99 05/25/17 08:00 64 05/25/17 04:46 98.3 63 22 138/60 (86) 98 05/25/17 00:00 97.7 60 22 106/53 (70) 98 05/24/17 20:15 97.5 61 18 139/65 (89) 99 05/24/17 20:00 60 Objective Radiology Results Last 48 hours Impressions Brain MRI 05/25/17 0000 Signed Impressions: Service Date/Time: April 17:09 - CONCLUSION: 1. Small nonhemorrhagic infarction involving the left occipital lobe with a tiny focus of nonhemorrhagic infarction involving the left head of caudate. 2. Atrophy and chronic small vessel ischemic change. 3. Encephalomalacia within the right frontal lobe. 4. Chronic vegas sinus disease. Hay Engel Jr., MD Neck CTA 05/24/17 1240 Signed Impressions: Service Date/Time: Wednesday, May 24, 2017 12:49 - CONCLUSION: 1. Calcified plaque involving the ICA origins without a hemodynamically significant stenosis. Hay Engel Jr., MD Head CTA 05/24/17 1240 Signed Impressions: Service Date/Time: Wednesday, May 24, 2017 12:49 - CONCLUSION: No luminal filling defects to suggest embolus or thrombus. A wet reading was supplied to Dr. Solares at 1324 hrs. Hay Engel Jr., MD Head CT 05/24/17 0000 Signed Impressions: Service Date/Time: Wednesday, May 24, 2017 12:49 - CONCLUSION: 1. No hemorrhage or acute infarction. 2. Atrophy, chronic small vessel ischemic change, and right frontal encephalomalacia. 3. Chronic vegas sinus disease. Hay Engel Jr., MD Chest X-Ray 05/24/17 0000 Signed Impressions: Service Date/Time: Wednesday, May 24, 2017 12:59 - CONCLUSION: 1. Left lower lobar consolidation. 2. Probable small bilateral pleural effusions. Hay Langford MD Micro and Labs Laboratory Tests Test 05/24/17 19:52 05/25/17 03:29 Troponin I 0.10 0.09 White Blood Count 5.5 Red Blood Count 2.78 Hemoglobin 8.8 Hematocrit 26.2 Mean Corpuscular Volume 94.2 Mean Corpuscular Hemoglobin 31.6 Mean Corpuscular Hemoglobin Concent 33.5 Red Cell Distribution Width 16.6 Platelet Count 78 Mean Platelet Volume 11.0 Neutrophils (%) (Auto) 73.4 Lymphocytes (%) (Auto) 13.6 Monocytes (%) (Auto) 9.9 Eosinophils (%) (Auto) 2.6 Basophils (%) (Auto) 0.5 Neutrophils # (Auto) 4.0 Lymphocytes # (Auto) 0.7 Monocytes # (Auto) 0.5 Eosinophils # (Auto) 0.1 Basophils # (Auto) 0.0 CBC Comment DIFF FINAL Differential Comment Blood Urea Nitrogen 14 Creatinine 0.59 Random Glucose 99 Calcium Level 7.7 Sodium Level 141 Potassium Level 3.6 Chloride Level 107 Carbon Dioxide Level 24.2 Anion Gap 10 Estimat Glomerular Filtration Rate 97 Triglycerides Level 58 Cholesterol Level LESS THAN 50 LDL Cholesterol 12 HDL Cholesterol 26.2 Cholesterol/HDL Ratio 1.90 Ariela Das MD May 25, 2017 18:44
[2017-05-25] MEDS: CARVEDILOL 12.5 MG TAB PO SCH (20:25)
[2017-05-25] MEDS: APIXABAN 2.5 MG TABLET PO SCH (20:25)
[2017-05-25] MEDS: ATORVASTATIN 80 MG TAB PO SCH (20:26)
[2017-05-25] MEDS: MIRTAZAPINE 15 MG TAB PO SCH (20:27)
--- NOTE | 2017-05-25 23:44 | EKG ---
Date Performed: 05/25/2017 Time Performed: 05:07:00 PTAGE: 81 years EKG: Atrial fibrillation vs Vpaced Prolonged QT interval Left axis deviation IV conduction defec t Extensive infarct - age undetermined Generalized low QRS voltages Abnormal ECG PREVIOUS TRACING : 05/24/2017 12.41 Compared to prior tracing no significant change DOCTOR: Jann Cazares Interpretating Date/Time 05/25/2017 23:43:48
[2017-05-26] VITALS (10 sets, daily range): BP systolic 115–158; BP diastolic 56–76; PULSE 60–63; RESP 16–20; TEMP 97.4–98.5; O2SAT 94–100
--- NOTE | 2017-05-26 08:24 | HHI.PR ---
Subjective Remarks Patient is more confused this morning pulled on IV and caused skin tear. Objective Vital Signs Date Time Temp Pulse Resp B/P (MAP) Pulse Ox O2 Delivery O2 Flow Rate FiO2 05/26/17 04:00 98.5 60 20 126/76 (93) 97 05/26/17 03:47 Room Air 05/26/17 00:04 97.6 60 20 115/56 (75) 98 05/26/17 00:00 97.6 60 20 115/56 (75) 98 05/25/17 20:14 60 05/25/17 20:00 97.2 60 20 128/74 (92) 100 05/25/17 16:00 97.8 71 18 137/63 (87) 92 05/25/17 12:00 97.9 61 18 136/58 (84) 99 05/25/17 10:45 Nasal Cannula 1.50 I/O 05/25/17 05/25/17 05/25/17 05/26/17 05/26/17 05/26/17 07:00 15:00 23:00 07:00 15:00 23:00 Intake Total 1072 ml 240 ml 240 ml Output Total 100 ml Balance 972 ml 240 ml 240 ml Intake Oral 120 ml 240 ml 240 ml IV Total 952 ml Output Urine Total 100 ml Bladder Scan Volume Amount 124 ml # Voids 1 0 # Bowel Movements 1 3 3 Result Diagram: 05/25/17 0329 05/25/17 0329 Objective Remarks GENERAL: Alert confused SKIN: Warm and dry. Skin tear left arm HEAD: Normocephalic. EYES: No scleral icterus. No injection or drainage. NECK: Supple, trachea midline. No JVD or lymphadenopathy. CARDIOVASCULAR: Regular rate and rhythm without murmurs, gallops, or rubs. RESPIRATORY: Breath sounds equal bilaterally. No accessory muscle use. GASTROINTESTINAL: Abdomen soft, non-tender, nondistended. MUSCULOSKELETAL: No cyanosis, or edema. BACK: Nontender without obvious deformity. No CVA tenderness. Medications and IVs Current Medications Medications (Trade) Dose Ordered Sig/Linda Route Start Time Stop Time Status Last Admin (NS Flush) 2 ml BID IV FLUSH 05/24/17 21:00 05/25/17 20:27 (NS Flush) 2 ml UNSCH PRN IV FLUSH 05/24/17 14:15 (Tylenol) 500 mg Q4H PRN PO 05/24/17 14:15 05/25/17 14:05 (Ecotrin Ec) 81 mg DAILY PO 05/26/17 09:00 (Coreg) 25 mg BID PO 05/25/17 21:00 05/25/17 20:25 (Ismo) 30 mg DAILY PO 05/26/17 09:00 (Remeron) 15 mg HS PO 05/25/17 21:00 05/25/17 20:27 (Aldactone) 12.5 mg DAILY PO 05/26/17 09:00 (Ultram) 50 mg Q6H PRN PO 05/25/17 16:00 (Lipitor) 80 mg HS PO 05/25/17 21:00 05/25/17 20:26 (Pill Splitter) 1 ea UNSCH PRN OTHER 05/25/17 16:00 (Eliquis) 2.5 mg BID PO 05/25/17 21:00 05/25/17 20:25 Assessment and Plan Problem List: (1) HLD (hyperlipidemia) ICD Codes: E78.5 - Hyperlipidemia, unspecified (2) HTN (hypertension) ICD Codes: I10 - Essential (primary) hypertension (3) Altered mental status ICD Codes: R41.82 - Altered mental status, unspecified (4) Elevated troponin ICD Codes: R74.8 - Abnormal levels of other serum enzymes (5) Dementia ICD Codes: F03.90 - Unspecified dementia without behavioral disturbance (6) TIA (transient ischemic attack) ICD Codes: G45.9 - Transient cerebral ischemic attack, unspecified Assessment and Plan 05/25/17 AMS: Patient with mild confusion. Neurology consulted. No acute findings noted thus far. EEG and MRI ordered. Speech is delayed. PT and OT ordered HX CVA: On statin and ASA HLD: Continue Statin HTN: home medication continued. Positive trop: mildly elevated at 0.09. Cardiology consulted and ECHO pending \Labs in AM 05/26/17 AMS: MRI with small acute ischemic events, left occipital and caudate. Neurology managing. On ASA and eliquis. Patient with increased confusion this morning. Allergy list needs to put be added order written for nursing will add medication for agitation once added. EEG: Abnormal EEG due to mild moderate slowing consistent with encephalopathic process. No findings to suggest seizure or seizure focus . Urinary retention: Per nursing patient has not urinated. Order to put medina back in and obtain UA Skin tear: Patient pulled IV out on left arm and skin tear obtained. wound care ordered. Labs pending this AM I and the BROADBAND ENGINEER have both examined this patient and reviewed this note and I agree with these findings and plan of care. Ambreen Burton. BROADBAND ENGINEER May 26, 2017 08:24
[2017-05-26 08:33] LABS: MEAN CELL VOLUME 94.1 FL (80.0-100.0); MEAN CORPUSCULAR HEMOGLOBIN 31.1 PG (27.0-34.0); MEAN CORPUSCULAR HGB CONC 33.1 % (32.0-36.0); PLATELET COUNT 71 TH/MM3 (150-450); RED BLOOD COUNT 2.77 MIL/MM3 (4.00-5.30); RED CELL DISTRIBUTION WIDTH 16.1 % (11.6-17.2); WHITE BLOOD COUNT 6.6 TH/MM3 (4.0-11.0)
[2017-05-26 08:35] LABS: REVIEW FLAG FINAL
[2017-05-26 08:54] LABS: BICARBONATE 24.1 MEQ/L (21.0-32.0); POTASSIUM 3.4 MEQ/L (3.5-5.1)
[2017-05-26] MEDS: ISOSORBIDE MONONITRATE 20 MG TAB PO SCH (09:57)
[2017-05-26] MEDS: SPIRONOLACTONE 25 MG TAB PO SCH (09:57)
[2017-05-26] MEDS: CARVEDILOL 12.5 MG TAB PO SCH ×2 (09:57→21:17)
[2017-05-26] MEDS: APIXABAN 2.5 MG TABLET PO SCH ×2 (09:58→21:17)
[2017-05-26] MEDS: SODIUM CHLORIDE 0.9% FLUSH 10 ML FLUSH IV FLUSH SCH ×2 (09:58→21:17)
[2017-05-26] MEDS: ASPIRIN EC 81 MG TABEC PO SCH (09:58)
[2017-05-26] MEDS ORDERED: APIX2.5T PO (11:23)
[2017-05-26] MEDS: MIRTAZAPINE 15 MG TAB PO SCH (21:18)
[2017-05-26] MEDS: ATORVASTATIN 80 MG TAB PO SCH (21:18)
--- NOTE | 2017-05-26 21:54 | PD.CARD.PN ---
Subjective Subjective Remarks No CP or SOB, mild confusion, c/o back pain Objective Medications Current Medications Medications (Trade) Dose Ordered Sig/Linda Route Start Time Stop Time Status Last Admin (NS Flush) 2 ml BID IV FLUSH 05/24/17 21:00 05/26/17 21:17 (NS Flush) 2 ml UNSCH PRN IV FLUSH 05/24/17 14:15 (Tylenol) 500 mg Q4H PRN PO 05/24/17 14:15 05/25/17 14:05 (Ecotrin Ec) 81 mg DAILY PO 05/26/17 09:00 05/26/17 09:58 (Coreg) 25 mg BID PO 05/25/17 21:00 05/26/17 21:17 (Ismo) 30 mg DAILY PO 05/26/17 09:00 05/26/17 09:57 (Remeron) 15 mg HS PO 05/25/17 21:00 05/26/17 21:18 (Aldactone) 12.5 mg DAILY PO 05/26/17 09:00 05/26/17 09:57 (Ultram) 50 mg Q6H PRN PO 05/25/17 16:00 05/26/17 16:17 (Lipitor) 80 mg HS PO 05/25/17 21:00 05/26/17 21:18 (Pill Splitter) 1 ea UNSCH PRN OTHER 05/25/17 16:00 (Eliquis) 2.5 mg BID PO 05/25/17 21:00 05/26/17 21:17 Vital Signs / I&O Vital Signs Date Time Temp Pulse Resp B/P (MAP) Pulse Ox O2 Delivery O2 Flow Rate FiO2 05/26/17 17:54 98 Nasal Cannula 1.50 05/26/17 17:17 20 05/26/17 16:00 98.2 62 20 134/61 (85) 98 05/26/17 14:03 98 Nasal Cannula 1.50 05/26/17 12:00 97.4 60 20 135/63 (87) 98 05/26/17 08:00 98.4 63 18 154/65 (94) 100 05/26/17 08:00 Room Air 05/26/17 04:00 98.5 60 20 126/76 (93) 97 05/26/17 03:47 Room Air 05/26/17 00:04 97.6 60 20 115/56 (75) 98 05/26/17 00:00 97.6 60 20 115/56 (75) 98 I/O 05/25/17 05/25/17 05/25/17 05/26/17 05/26/17 05/26/17 07:00 15:00 23:00 07:00 15:00 23:00 Intake Total 1072 ml 240 ml 240 ml 800 ml Output Total 100 ml 300 ml Balance 972 ml 240 ml 240 ml 500 ml Intake Oral 120 ml 240 ml 240 ml 800 ml IV Total 952 ml Output Urine Total 100 ml 300 ml Stool Total 0 ml Bladder Scan Volume Amount 124 ml # Voids 1 0 # Bowel Movements 1 3 3 Physical Exam GENERAL: In NAD SKIN: Warm and dry. HEAD: Normocephalic. EYES: No scleral icterus. No injection or drainage. NECK: Supple, trachea midline. No JVD or lymphadenopathy. CARDIOVASCULAR: Regular rate and rhythm without murmurs, gallops, or rubs. RESPIRATORY: Breath sounds equal bilaterally. No accessory muscle use. GASTROINTESTINAL: Abdomen soft, non-tender, nondistended. MUSCULOSKELETAL: No cyanosis, or edema. Mildly confused Laboratory Laboratory Tests Test 05/26/17 08:03 White Blood Count 6.6 TH/MM3 Red Blood Count 2.77 MIL/MM3 Hemoglobin 8.6 GM/DL Hematocrit 26.0 % Mean Corpuscular Volume 94.1 FL Mean Corpuscular Hemoglobin 31.1 PG Mean Corpuscular Hemoglobin Concent 33.1 % Red Cell Distribution Width 16.1 % Platelet Count 71 TH/MM3 Mean Platelet Volume 10.8 FL Blood Urea Nitrogen 16 MG/DL Creatinine 0.72 MG/DL Random Glucose 110 MG/DL Calcium Level 7.9 MG/DL Sodium Level 140 MEQ/L Potassium Level 3.4 MEQ/L Chloride Level 107 MEQ/L Carbon Dioxide Level 24.1 MEQ/L Anion Gap 9 MEQ/L Estimat Glomerular Filtration Rate 77 ML/MIN Assessment and Plan Problem List: (1) Altered mental status ICD Codes: R41.82 - Altered mental status, unspecified (2) TIA (transient ischemic attack) ICD Codes: G45.9 - Transient cerebral ischemic attack, unspecified (3) Dementia ICD Codes: F03.90 - Unspecified dementia without behavioral disturbance (4) Elevated troponin ICD Codes: R74.8 - Abnormal levels of other serum enzymes Assessment and Plan No new cardiac issues. Remains stable from cardiac standpoint. No angina or CHF symptoms. No evidence of ACS, troponins stable without any trend. Echo shows preserved LV systolic function with no wall motion abnormalities. Continue monitoring. Neuro evaluation in progress. Increase activity. D/w pt and family. Umberto Ellis MD May 26, 2017 21:54
[2017-05-27] VITALS (7 sets, daily range): BP systolic 118–150; BP diastolic 63–94; PULSE 60; RESP 16–22; TEMP 97.4–98; O2SAT 93–98
[2017-05-27] MEDS: CARVEDILOL 12.5 MG TAB PO SCH ×2 (08:02→22:13)
[2017-05-27] MEDS: ASPIRIN EC 81 MG TABEC PO SCH (08:02)
[2017-05-27] MEDS: SPIRONOLACTONE 25 MG TAB PO SCH (08:02)
[2017-05-27] MEDS: APIXABAN 2.5 MG TABLET PO SCH ×2 (08:02→22:12)
[2017-05-27] MEDS: ISOSORBIDE MONONITRATE 20 MG TAB PO SCH (08:02)
[2017-05-27] MEDS: SODIUM CHLORIDE 0.9% FLUSH 10 ML FLUSH IV FLUSH SCH ×2 (08:03→21:57)
[2017-05-27 10:55] LABS: HEMATOCRIT 25.9 % (35.0-46.0); MEAN CELL VOLUME 94.3 FL (80.0-100.0); MEAN CORPUSCULAR HEMOGLOBIN 31.8 PG (27.0-34.0); MEAN CORPUSCULAR HGB CONC 33.7 % (32.0-36.0); PLATELET COUNT 64 TH/MM3 (150-450); RED BLOOD COUNT 2.74 MIL/MM3 (4.00-5.30); RED CELL DISTRIBUTION WIDTH 16.1 % (11.6-17.2)
[2017-05-27 10:57] LABS: REVIEW FLAG FINAL
[2017-05-27 11:53] LABS: BICARBONATE 26.1 MEQ/L (21.0-32.0); POTASSIUM 3.5 MEQ/L (3.5-5.1)
--- NOTE | 2017-05-27 13:55 | HHI.PR ---
Subjective Remarks Patient is resting comfortably in bed. Confused. Objective Vital Signs Date Time Temp Pulse Resp B/P (MAP) Pulse Ox O2 Delivery O2 Flow Rate FiO2 05/27/17 12:00 97.4 60 18 136/63 (87) 97 05/27/17 10:30 94 Nasal Cannula 1.50 05/27/17 08:00 97.9 60 16 118/65 (82) 93 05/27/17 08:00 Room Air 05/27/17 04:14 97.7 60 16 149/65 (93) 95 05/27/17 00:00 Room Air 05/26/17 23:25 97.6 60 16 158/65 (96) 94 05/26/17 20:03 97.7 61 16 143/63 (89) 96 05/26/17 20:00 Room Air 05/26/17 17:54 98 Nasal Cannula 1.50 05/26/17 17:17 20 05/26/17 16:00 98.2 62 20 134/61 (85) 98 05/26/17 14:03 98 Nasal Cannula 1.50 I/O 05/26/17 05/26/17 05/26/17 05/27/17 05/27/17 05/27/17 07:00 15:00 23:00 07:00 15:00 23:00 Intake Total 240 ml 800 ml 120 ml Output Total 300 ml 150 ml Balance 240 ml 500 ml -30 ml Intake Oral 240 ml 800 ml 120 ml Output Urine Total 300 ml 150 ml Stool Total 0 ml Bladder Scan Volume Amount 124 ml # Voids 0 # Bowel Movements 3 0 Result Diagram: 05/27/1737 05/27/17936 Objective Remarks GENERAL: Alert confused SKIN: Warm and dry. Skin tear left arm HEAD: Normocephalic. EYES: No scleral icterus. No injection or drainage. NECK: Supple, trachea midline. No JVD or lymphadenopathy. CARDIOVASCULAR: Regular rate and rhythm without murmurs, gallops, or rubs. RESPIRATORY: Breath sounds equal bilaterally. No accessory muscle use. GASTROINTESTINAL: Abdomen soft, non-tender, nondistended. MUSCULOSKELETAL: No cyanosis, or edema. BACK: Nontender without obvious deformity. No CVA tenderness. Assessment and Plan Problem List: (1) HLD (hyperlipidemia) ICD Codes: E78.5 - Hyperlipidemia, unspecified (2) HTN (hypertension) ICD Codes: I10 - Essential (primary) hypertension (3) Altered mental status ICD Codes: R41.82 - Altered mental status, unspecified (4) Elevated troponin ICD Codes: R74.8 - Abnormal levels of other serum enzymes (5) Dementia ICD Codes: F03.90 - Unspecified dementia without behavioral disturbance (6) TIA (transient ischemic attack) ICD Codes: G45.9 - Transient cerebral ischemic attack, unspecified Assessment and Plan 05/25/17 AMS: Patient with mild confusion. Neurology consulted. No acute findings noted thus far. EEG and MRI ordered. Speech is delayed. PT and OT ordered HX CVA: On statin and ASA HLD: Continue Statin HTN: home medication continued. Positive trop: mildly elevated at 0.09. Cardiology consulted and ECHO pending \Labs in AM 05/26/17 AMS: MRI with small acute ischemic events, left occipital and caudate. Neurology managing. On ASA and eliquis. Patient with increased confusion this morning. Allergy list needs to put be added order written for nursing will add medication for agitation once added. EEG: Abnormal EEG due to mild moderate slowing consistent with encephalopathic process. No findings to suggest seizure or seizure focus . Urinary retention: Per nursing patient has not urinated. Order to put medina back in and obtain UA Skin tear: Patient pulled IV out on left arm and skin tear obtained. wound care ordered. Labs pending this AM 05/27/17 Acute CVA; Neurology consulted. On ASA, eliquis, and statin. Patient is confused and gets agitated at times. Will add Risperdal BID and monitor. On telemetry but with confusion patient is constantly pulling. No abnormalities noted on telemetry. Urinary retention: medina placed and monitoring. Will add flomax and remove medina in AM. UA is negative HTN; well controlled on current regimen I and the LEAD TECHNICAL WRITER have both examined this patient and reviewed this note and I agree with these findings and plan of care. Kenyon Patino DO Discussed Condition With Nursing Discharge Planning [facility] Ambreen Lyon. [facility] May 27, 2017 13:55
[2017-05-27] MEDS: risperiDONE 0.25 MG TAB PO SCH ×2 (14:24→22:13)
[2017-05-27] MEDS: ATORVASTATIN 80 MG TAB PO SCH (22:07)
[2017-05-27] MEDS: MIRTAZAPINE 15 MG TAB PO SCH (22:13)
[2017-05-28] VITALS (8 sets, daily range): BP systolic 91–171; BP diastolic 60–83; PULSE 60–64; RESP 20–24; TEMP 97.3–98.2; O2SAT 94–99
[2017-05-28] MEDS ORDERED: RESP: ALBUTEROL 2.5 MG/IPRATROPIUM 0.5 MG NEB (SCH) NEB (02:30)
[2017-05-28] MEDS ORDERED: RESP: ALBUTEROL 2.5 MG/IPRATROPIUM 0.5 MG NEB (PRN) NEB (05:00)
[2017-05-28] MEDS: ASPIRIN EC 81 MG TABEC PO SCH (09:11)
[2017-05-28] MEDS: ISOSORBIDE MONONITRATE 20 MG TAB PO SCH (09:11)
[2017-05-28] MEDS: risperiDONE 0.25 MG TAB PO SCH ×2 (09:11→21:19)
[2017-05-28] MEDS: CARVEDILOL 12.5 MG TAB PO SCH ×2 (09:11→21:00)
[2017-05-28] MEDS: APIXABAN 2.5 MG TABLET PO SCH ×2 (09:11→21:19)
[2017-05-28] MEDS: SPIRONOLACTONE 25 MG TAB PO SCH (09:11)
[2017-05-28] MEDS: SODIUM CHLORIDE 0.9% FLUSH 10 ML FLUSH IV FLUSH SCH ×2 (09:17→21:20)
[2017-05-28 10:13] LABS: HEMATOCRIT 27.4 % (35.0-46.0); MEAN CORPUSCULAR HEMOGLOBIN 31.9 PG (27.0-34.0); MEAN CORPUSCULAR HGB CONC 33.9 % (32.0-36.0); PLATELET COUNT 69 TH/MM3 (150-450); RED BLOOD COUNT 2.91 MIL/MM3 (4.00-5.30); RED CELL DISTRIBUTION WIDTH 16.2 % (11.6-17.2); WHITE BLOOD COUNT 6.2 TH/MM3 (4.0-11.0)
[2017-05-28 10:23] LABS: REVIEW FLAG FINAL
--- NOTE | 2017-05-28 10:25 | RADRPT ---
EXAM DATE/TIME: 05/28/2017 10:05 [place] COMPARISON: No previous studies available for comparison. INDICATIONS : Dyspnea MEDICAL HISTORY : Hypertension. Dementia. Atrial fibrillation SURGICAL HISTORY : Pacemaker. Back surgery and bilateral cataracts ENCOUNTER: Subsequent ACUITY: 4 - 6 days PAIN SCORE: 0/10 LOCATION: Chest FINDINGS: The heart is enlarged. Moderate pulmonary vascular congestion is noted bilaterally. A left subclavi an dual-lead pacemaker has its tips in the right atrium and right ventricle. There is no pneumothora x. Small bilateral pleural effusions are noted. Vascular stent overlies the cardiac silhouette. De generative changes are noted throughout the thoracic spine. CONCLUSION: 1. Moderate pulmonary edema bilaterally. 2. Cardiomegaly. 3. Small bilateral pleural effusions. 4. Degenerative changes throughout the thoracic spine. Grant Arora MD on May 28, 2017 at 10:13 Board Certified Radiologist. This report was verified electronically.
[2017-05-28 10:40] LABS: BICARBONATE 22.6 MEQ/L (21.0-32.0)
[2017-05-28 10:44] LABS: POTASSIUM 3.9 MEQ/L (3.5-5.1)
--- NOTE | 2017-05-28 17:38 | HHI.PR ---
Subjective Remarks Patient is sleeping today son at bedside. Poor appetite per nurse. Patient awoke easily and seemed annoyed when questioned. Objective Vital Signs Date Time Temp Pulse Resp B/P (MAP) Pulse Ox O2 Delivery O2 Flow Rate FiO2 05/28/17 13:30 96 Nasal Cannula 2.00 05/28/17 12:00 97.3 60 20 145/70 (95) 99 05/28/17 08:00 97.7 61 20 171/82 (111) 96 05/28/17 07:31 Nasal Cannula 2.00 05/28/17 04:00 97.4 60 24 150/83 (105) 99 05/28/17 00:00 97.8 60 20 152/72 (98) 94 05/27/17 21:45 97 Nasal Cannula 1.50 05/27/17 20:00 Room Air 05/27/17 20:00 98.0 05/27/17 20:00 60 05/27/17 20:00 98.0 60 22 132/68 (89) 98 I/O 05/27/17 05/27/17 05/27/17 05/28/17 05/28/17 05/28/17 07:00 15:00 23:00 07:00 15:00 23:00 Intake Total 120 ml 480 ml Output Total 150 ml 240 ml 200 ml Balance -30 ml 240 ml -200 ml Intake Oral 120 ml 480 ml Output Urine Total 150 ml 240 ml 200 ml # Bowel Movements 0 Result Diagram: 05/28/1790305/28/17 0904 Objective Remarks GENERAL: Alert confused SKIN: Warm and dry. Skin tear left arm HEAD: Normocephalic. EYES: No scleral icterus. No injection or drainage. NECK: Supple, trachea midline. No JVD or lymphadenopathy. CARDIOVASCULAR: Regular rate and rhythm without murmurs, gallops, or rubs. RESPIRATORY: Breath sounds equal bilaterally. No accessory muscle use. GASTROINTESTINAL: Abdomen soft, non-tender, nondistended. MUSCULOSKELETAL: No cyanosis, or edema. BACK: Nontender without obvious deformity. No CVA tenderness. Medications and IVs Current Medications Medications (Trade) Dose Ordered Sig/Linda Route Start Time Stop Time Status Last Admin (NS Flush) 2 ml BID IV FLUSH 05/24/17 21:00 05/28/17 09:17 (NS Flush) 2 ml UNSCH PRN IV FLUSH 05/24/17 14:15 (Tylenol) 500 mg Q4H PRN PO 05/24/17 14:15 05/25/17 14:05 (Ecotrin Ec) 81 mg DAILY PO 05/26/17 09:00 Future Hold 05/28/17 09:11 (Coreg) 25 mg BID PO 05/25/17 21:00 05/28/17 09:11 (Ismo) 30 mg DAILY PO 05/26/17 09:00 05/28/17 09:11 (Remeron) 15 mg HS PO 05/25/17 21:00 05/27/17 22:13 (Aldactone) 12.5 mg DAILY PO 05/26/17 09:00 05/28/17 09:11 (Ultram) 50 mg Q6H PRN PO 05/25/17 16:00 05/26/17 16:17 (Lipitor) 80 mg HS PO 05/25/17 21:00 05/27/17 22:07 (Pill Splitter) 1 ea UNSCH PRN OTHER 05/25/17 16:00 (Eliquis) 2.5 mg BID PO 05/25/17 21:00 05/28/17 09:11 (Flomax) 0.4 mg DAILY@2100 PO 05/28/17 21:00 (risperDAL) 0.25 mg Q12HR PO 05/27/17 14:00 05/28/17 09:11 (Duoneb Neb) 1 ampule Q6HR NEB PRN NEB 05/28/17 05:00 Assessment and Plan Problem List: (1) HLD (hyperlipidemia) ICD Codes: E78.5 - Hyperlipidemia, unspecified (2) HTN (hypertension) ICD Codes: I10 - Essential (primary) hypertension (3) Altered mental status ICD Codes: R41.82 - Altered mental status, unspecified (4) Elevated troponin ICD Codes: R74.8 - Abnormal levels of other serum enzymes (5) Dementia ICD Codes: F03.90 - Unspecified dementia without behavioral disturbance (6) TIA (transient ischemic attack) ICD Codes: G45.9 - Transient cerebral ischemic attack, unspecified Assessment and Plan 05/25/17 AMS: Patient with mild confusion. Neurology consulted. No acute findings noted thus far. EEG and MRI ordered. Speech is delayed. PT and OT ordered HX CVA: On statin and ASA HLD: Continue Statin HTN: home medication continued. Positive trop: mildly elevated at 0.09. Cardiology consulted and ECHO pending \Labs in AM 05/26/17 AMS: MRI with small acute ischemic events, left occipital and caudate. Neurology managing. On ASA and eliquis. Patient with increased confusion this morning. Allergy list needs to put be added order written for nursing will add medication for agitation once added. EEG: Abnormal EEG due to mild moderate slowing consistent with encephalopathic process. No findings to suggest seizure or seizure focus . Urinary retention: Per nursing patient has not urinated. Order to put medina back in and obtain UA Skin tear: Patient pulled IV out on left arm and skin tear obtained. wound care ordered. Labs pending this AM 05/27/17 Acute CVA; Neurology consulted. On ASA, eliquis, and statin. Patient is confused and gets agitated at times. Will add Risperdal BID and monitor. On telemetry but with confusion patient is constantly pulling. No abnormalities noted on telemetry. Urinary retention: medina placed and monitoring. Will add flomax and remove medina in AM. UA is negative HTN; well controlled on current regimen 05/28/17 Acute CVA; neurology consulted. On ASA, eliquis, and statin. ASA put on hold for thrombocytopenia. 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 Patient mental status is continuing to decline. Per nursing has had a poor appetite and sleeping most of day. Son at bedside. Patient wakes up to commands and answers questions and goes back to sleep. O2 2 liters at 96 % but will obtain blood gas to look for elevated CO2 levels. Patient is a do not intubate SOB: Last night per nursing SOB reported. Breathing treatments ordered and chest Xray this AM. On o2 2 liters with good sats. Chest Xray demonstrating moderate bilateral pulmonary edema. UOP at 450. Discussed with Dr. Patino pending ABG will order IVF since patient has minimal PO intake and gentle diuresis with pulmonary edema noted. Will obtain cbc, BMP, and BNP in AM code status is compressions and shock only discussed with son and he will be talking to family and possibly changing to full code. I and the BENCH ASSEMBLER OPERATOR have both examined this patient and reviewed this note and I agree with these findings and plan of care. Kenyon Patino DO Discussed Condition With Nursing Ambreen Lyon May 28, 2017 17:38
[2017-05-28 17:41] LABS: BLOOD GAS BASE EXCESS 1.3 mmol/L (-2-2); BLOOD GAS CARBOXYHEMOGLOBIN 1.9 % (0-4); BLOOD GAS HCO3 26 mmol/L (22-26); BLOOD GAS METHEMOGLOBIN 0.7 % (0-2); BLOOD GAS O2 HGB SATURATION 97 % (90-100); BLOOD GAS OXYGEN CONTENT 12.7 Vol % (12.0-20.0); BLOOD GAS PCO2 43 mmHg (38-42); BLOOD GAS PO2 119 mmHg (61-120); BLOOD GAS TOTAL HGB 9.2 G/DL (12.0-16.0); CRITICAL VALUE NO; DRAW SITE RT RADIAL; LITER FLOW 2 L/M; NUMBER OF ARTERIAL PUNCTURES 1; OXYGEN DEVICE NASAL CANNULA; STAT NO; TEMP CORR TO 98.6; ULNAR PULSE PRESENT
[2017-05-28] MEDS ORDERED: FUROSEMIDE 40 MG/4 ML VIAL IV PUSH ONE (17:45)
[2017-05-28] MEDS: SODIUM CHLOR 0.9% 1000 ML INJ 1,000 ML IV SCH (18:29)
[2017-05-28] MEDS ORDERED: TAMSULOSIN HCL 0.4 MG CAP PO SCH (21:00)
[2017-05-28] MEDS: MIRTAZAPINE 15 MG TAB PO SCH (21:19)
[2017-05-28] MEDS: ATORVASTATIN 80 MG TAB PO SCH (21:19)
[2017-05-29] VITALS (7 sets, daily range): BP systolic 142–160; BP diastolic 68–90; PULSE 60–64; RESP 18–21; TEMP 97.4–98.2; O2SAT 92–98
[2017-05-29] MEDS: SODIUM CHLOR 0.9% 1000 ML INJ 1,000 ML IV SCH ×2 (06:11→17:27)
--- NOTE | 2017-05-29 08:28 | HHI.PR ---
Subjective Remarks Awake and conversive today. W/U per Cards and Neuro is in progress. Objective Vital Signs Date Time Temp Pulse Resp B/P (MAP) Pulse Ox O2 Delivery O2 Flow Rate FiO2 05/29/17 04:00 97.4 60 21 158/90 (112) 98 05/29/17 00:00 97.9 60 19 148/76 (100) 93 05/28/17 20:00 97.5 61 20 91/60 (70) 95 05/28/17 20:00 Room Air 05/28/17 17:52 97 Nasal Cannula 2.00 05/28/17 16:00 98.2 64 20 136/61 (86) 96 05/28/17 13:30 96 Nasal Cannula 2.00 05/28/17 12:00 97.3 60 20 145/70 (95) 99 I/O 05/28/17 05/28/17 05/28/17 05/29/17 05/29/17 05/29/17 07:00 15:00 23:00 07:00 15:00 23:00 Intake Total 420 ml Output Total 200 ml 150 ml 2100 ml Balance -200 ml -150 ml -1680 ml Intake Oral 420 ml Output Urine Total 200 ml 150 ml 2100 ml # Bowel Movements 1 Result Diagram: 05/28/17 0904 05/28/17 0904 Imaging Last Impressions Chest X-Ray 05/28/17 0000 Signed Impressions: Service Date/Time: Sunday, May 28, 2017 10:05 - CONCLUSION: 1. Moderate pulmonary edema bilaterally. 2. Cardiomegaly. 3. Small bilateral pleural effusions. 4. Degenerative changes throughout the thoracic spine. Grant Arora MD Brain MRI 05/25/17 0000 Signed Impressions: Service Date/Time: April 17:09 - CONCLUSION: 1. Small nonhemorrhagic infarction involving the left occipital lobe with a tiny focus of nonhemorrhagic infarction involving the left head of caudate. 2. Atrophy and chronic small vessel ischemic change. 3. Encephalomalacia within the right frontal lobe. 4. Chronic [place] sinus disease. Hay Engel Jr., MD Neck CTA 05/24/17 1240 Signed Impressions: Service Date/Time: Wednesday, May 24, 2017 12:49 - CONCLUSION: 1. Calcified plaque involving the ICA origins without a hemodynamically significant stenosis. Hay Engel Jr., MD Head CTA 05/24/17 1240 Signed Impressions: Service Date/Time: Wednesday, May 24, 2017 12:49 - CONCLUSION: No luminal filling defects to suggest embolus or thrombus. A wet reading was supplied to Dr. Solares at 1324 hrs. Hay Engel Jr., MD Head CT 05/24/17 0000 Signed Impressions: Service Date/Time: Wednesday, May 24, 2017 12:49 - CONCLUSION: 1. No hemorrhage or acute infarction. 2. Atrophy, chronic small vessel ischemic change, and right frontal encephalomalacia. 3. Chronic [place] sinus disease. Hay Engel Jr., MD Objective Remarks HEENT - AT and NC; Resp - Clear; CV - without murmur; Abd - soft and nontender with active BS; MS - without edema Medications and IVs Current Medications Medications (Trade) Dose Ordered Sig/Linda Route Start Time Stop Time Status Last Admin (NS Flush) 2 ml BID IV FLUSH 05/24/17 21:00 05/28/17 21:20 (NS Flush) 2 ml UNSCH PRN IV FLUSH 05/24/17 14:15 (Tylenol) 500 mg Q4H PRN PO 05/24/17 14:15 05/25/17 14:05 (Ecotrin Ec) 81 mg DAILY PO 05/26/17 09:00 Future Hold 05/28/17 09:11 (Coreg) 25 mg BID PO 05/25/17 21:00 05/28/17 09:11 (Ismo) 30 mg DAILY PO 05/26/17 09:00 05/28/17 09:11 (Remeron) 15 mg HS PO 05/25/17 21:00 05/28/17 21:19 (Aldactone) 12.5 mg DAILY PO 05/26/17 09:00 05/28/17 09:11 (Lipitor) 80 mg HS PO 05/25/17 21:00 05/28/17 21:19 (Pill Splitter) 1 ea UNSCH PRN OTHER 05/25/17 16:00 (Eliquis) 2.5 mg BID PO 05/25/17 21:00 05/28/17 21:19 (risperDAL) 0.25 mg Q12HR PO 05/27/17 14:00 05/28/17 21:19 (Duoneb Neb) 1 ampule Q6HR NEB PRN NEB 05/28/17 05:00 Sodium Chloride 1,000 ml @ 84 mls/hr [id number] IV 05/28/17 17:45 05/29/17 06:11 (Lasix) 20 mg DAILY PO 05/29/17 09:00 Assessment and Plan Problem List: (1) CVA (cerebral vascular accident) ICD Codes: I63.9 - Cerebral infarction, unspecified Status: Acute Plan: MRI reveals left occipital infarct. Neuro following (2) Dementia ICD Codes: F03.90 - Unspecified dementia without behavioral disturbance Status: Chronic Plan: F/U Neuro recommendations (3) Altered mental status ICD Codes: R41.82 - Altered mental status, unspecified Status: Chronic Plan: F/U Neuro W/U (4) HTN (hypertension) ICD Codes: I10 - Essential (primary) hypertension Plan: F/U Cards W/U Discussed Condition With patient Problem Qualifiers (1) CVA (cerebral vascular accident): (2) Dementia: (3) Altered mental status: Qualified Codes: R41.82 - Altered mental status, unspecified (4) HTN (hypertension): Qualified Codes: I10 - Essential (primary) hypertension Will Quintanilla May 29, 2017 08:28
--- NOTE | 2017-05-29 08:39 | HHI.PR ---
Review/Management Daily Summary 05/25 I saw her earlier today before mri and she seemed stable and confused spoke to RN at the time i saw her mri results just seen small acute ischemic events, left occipital and caudate, dementia A fib on eliquis 2.5 mg bid and asa 81 mg would continue these meds and supportive care oob with PT 05/29 doing relatively well neuro follows commands "sleeping" but will talk and maintain eyes closed throughout moves limbs well continue supportive medical care eliquis low platelet, asa on hold Subjective Subjective Comments No acute events reported No headache Active Medications Current Medications Medications (Trade) Dose Ordered Sig/[place] Route Start Time Stop Time Status Last Admin (NS Flush) 2 ml BID IV FLUSH 05/24/17 21:00 05/28/17 21:20 (NS Flush) 2 ml UNSCH PRN IV FLUSH 05/24/17 14:15 (Tylenol) 500 mg Q4H PRN PO 05/24/17 14:15 05/25/17 14:05 (Ecotrin Ec) 81 mg DAILY PO 05/26/17 09:00 Future Hold 05/28/17 09:11 (Coreg) 25 mg BID PO 05/25/17 21:00 05/28/17 09:11 (Ismo) 30 mg DAILY PO 05/26/17 09:00 05/28/17 09:11 (Remeron) 15 mg HS PO 05/25/17 21:00 05/28/17 21:19 (Aldactone) 12.5 mg DAILY PO 05/26/17 09:00 05/28/17 09:11 (Lipitor) 80 mg HS PO 05/25/17 21:00 05/28/17 21:19 (Pill Splitter) 1 ea UNSCH PRN OTHER 05/25/17 16:00 (Eliquis) 2.5 mg BID PO 05/25/17 21:00 05/28/17 21:19 (risperDAL) 0.25 mg Q12HR PO 05/27/17 14:00 05/28/17 21:19 (Duoneb Neb) 1 ampule Q6HR NEB PRN NEB 05/28/17 05:00 Sodium Chloride 1,000 ml @ 84 mls/hr [id number] IV 05/28/17 17:45 05/29/17 06:11 (Lasix) 20 mg DAILY PO 05/29/17 09:00 Allergies Allergies Coded Allergies No Known Allergies ([id number]/17) Exam I&O / VS Vital Signs Date Time Temp Pulse Resp B/P (MAP) Pulse Ox O2 Delivery O2 Flow Rate FiO2 05/29/17 04:00 97.4 60 21 158/90 (112) 98 05/29/17 00:00 97.9 60 19 148/76 (100) 93 05/28/17 20:00 97.5 61 20 91/60 (70) 95 05/28/17 20:00 Room Air 05/28/17 17:52 97 Nasal Cannula 2.00 05/28/17 16:00 98.2 64 20 136/61 (86) 96 05/28/17 13:30 96 Nasal Cannula 2.00 05/28/17 12:00 97.3 60 20 145/70 (95) 99 Objective Micro and Labs Laboratory Tests Test 05/28/17 09:04 05/28/17 17:15 White Blood Count 6.2 Red Blood Count 2.91 Hemoglobin 9.3 Hematocrit 27.4 Mean Corpuscular Volume 94.0 Mean Corpuscular Hemoglobin 31.9 Mean Corpuscular Hemoglobin Concent 33.9 Red Cell Distribution Width 16.2 Platelet Count 69 Mean Platelet Volume 11.4 Blood Urea Nitrogen 12 Creatinine 0.47 Random Glucose 104 Calcium Level 7.9 Sodium Level 138 Potassium Level 3.9 Chloride Level 105 Carbon Dioxide Level 22.6 Anion Gap 10 Estimat Glomerular Filtration Rate 127 Blood Gas Puncture Site RT RADIAL Blood Gas Patient Temperature 98.6 Blood Gas HCO3 26 Blood Gas Base Excess 1.3 Blood Gas Oxygen Saturation 97 Arterial Blood pH 7.40 Arterial Blood Partial Pressure CO2 43 Arterial Blood Partial Pressure O2 119 Arterial Blood Oxygen Content 12.7 Arterial Blood Carboxyhemoglobin 1.9 Arterial Blood Methemoglobin 0.7 Blood Gas Hemoglobin 9.2 Oxygen Delivery Device NASAL CANNULA Blood Gas Liter Flow 2 Ariela Das MD May 29, 2017 08:39
[2017-05-29] MEDS: SPIRONOLACTONE 25 MG TAB PO SCH (10:07)
[2017-05-29] MEDS: risperiDONE 0.25 MG TAB PO SCH ×2 (10:07→20:40)
[2017-05-29] MEDS: FUROSEMIDE 20 MG TAB PO SCH (10:07)
[2017-05-29] MEDS: CARVEDILOL 12.5 MG TAB PO SCH ×2 (10:07→20:40)
[2017-05-29] MEDS: ISOSORBIDE MONONITRATE 20 MG TAB PO SCH (10:07)
[2017-05-29] MEDS: SODIUM CHLORIDE 0.9% FLUSH 10 ML FLUSH IV FLUSH SCH ×2 (10:08→20:40)
[2017-05-29] MEDS: APIXABAN 2.5 MG TABLET PO SCH ×2 (12:59→20:40)
--- NOTE | 2017-05-29 16:46 | PD.CARD.PN ---
Subjective Subjective Remarks No CP or SOB, mild confusion, feels well Objective Medications Current Medications Medications (Trade) Dose Ordered Sig/Linda Route Start Time Stop Time Status Last Admin (NS Flush) 2 ml BID IV FLUSH 05/24/17 21:00 05/28/17 21:20 (NS Flush) 2 ml UNSCH PRN IV FLUSH 05/24/17 14:15 (Tylenol) 500 mg Q4H PRN PO 05/24/17 14:15 05/25/17 14:05 (Ecotrin Ec) 81 mg DAILY PO 05/26/17 09:00 Future Hold 05/28/17 09:11 (Coreg) 25 mg BID PO 05/25/17 21:00 05/29/17 10:07 (Ismo) 30 mg DAILY PO 05/26/17 09:00 05/29/17 10:07 (Remeron) 15 mg HS PO 05/25/17 21:00 05/28/17 21:19 (Aldactone) 12.5 mg DAILY PO 05/26/17 09:00 05/29/17 10:07 (Lipitor) 80 mg HS PO 05/25/17 21:00 05/28/17 21:19 (Pill Splitter) 1 ea UNSCH PRN OTHER 05/25/17 16:00 (Eliquis) 2.5 mg BID PO 05/25/17 21:00 05/29/17 12:59 (risperDAL) 0.25 mg Q12HR PO 05/27/17 14:00 05/29/17 10:07 (Duoneb Neb) 1 ampule Q6HR NEB PRN NEB 05/28/17 05:00 05/29/17 10:53 Sodium Chloride 1,000 ml @ 84 mls/hr [id number] IV 05/28/17 17:45 05/29/17 06:11 (Lasix) 20 mg DAILY PO 05/29/17 09:00 05/29/17 10:07 Vital Signs / I&O Vital Signs Date Time Temp Pulse Resp B/P (MAP) Pulse Ox O2 Delivery O2 Flow Rate FiO2 05/29/17 13:54 93 05/29/17 12:25 97.8 61 20 145/68 (93) 93 05/29/17 10:20 Room Air 05/29/17 08:05 98.2 60 20 160/84 (109) 92 05/29/17 04:00 97.4 60 21 158/90 (112) 98 05/29/17 00:00 97.9 60 19 148/76 (100) 93 05/28/17 20:00 97.5 61 20 91/60 (70) 95 05/28/17 20:00 Room Air 05/28/17 17:52 97 Nasal Cannula 2.00 I/O 05/28/17 05/28/17 05/28/17 05/29/17 05/29/17 05/29/17 07:00 15:00 23:00 07:00 15:00 23:00 Intake Total 420 ml Output Total 200 ml 150 ml 2100 ml Balance -200 ml -150 ml -1680 ml Intake Oral 420 ml Output Urine Total 200 ml 150 ml 2100 ml # Bowel Movements 1 Physical Exam GENERAL: In NAD SKIN: Warm and dry. HEAD: Normocephalic. EYES: No scleral icterus. No injection or drainage. NECK: Supple, trachea midline. No JVD or lymphadenopathy. CARDIOVASCULAR: Regular rate and rhythm without murmurs, gallops, or rubs. RESPIRATORY: Breath sounds equal bilaterally. No accessory muscle use. GASTROINTESTINAL: Abdomen soft, non-tender, nondistended. MUSCULOSKELETAL: No cyanosis, or edema. Mildly confused Laboratory Laboratory Tests Test 05/28/17 17:15 Blood Gas Puncture Site RT RADIAL Blood Gas Patient Temperature 98.6 Blood Gas HCO3 26 mmol/L Blood Gas Base Excess 1.3 mmol/L Blood Gas Oxygen Saturation 97 % Arterial Blood pH 7.40 Arterial Blood Partial Pressure CO2 43 mmHg Arterial Blood Partial Pressure O2 119 mmHg Arterial Blood Oxygen Content 12.7 Vol % Arterial Blood Carboxyhemoglobin 1.9 % Arterial Blood Methemoglobin 0.7 % Blood Gas Hemoglobin 9.2 G/DL Oxygen Delivery Device NASAL CANNULA Blood Gas Liter Flow 2 L/M Assessment and Plan Problem List: (1) Altered mental status ICD Codes: R41.82 - Altered mental status, unspecified Status: Chronic (2) TIA (transient ischemic attack) ICD Codes: G45.9 - Transient cerebral ischemic attack, unspecified (3) Dementia ICD Codes: F03.90 - Unspecified dementia without behavioral disturbance Status: Chronic (4) Elevated troponin ICD Codes: R74.8 - Abnormal levels of other serum enzymes Assessment and Plan Continue current program. Remains stable from cardiac standpoint. No angina or CHF symptoms. No evidence of ACS, serial troponins stable without any trend. Echo shows preserved LV systolic function with no wall motion abnormalities. Continue monitoring. Neuro evaluation in progress. Increase activity, PT. Problem Qualifiers (1) Altered mental status: Qualified Codes: R41.82 - Altered mental status, unspecified (2) Dementia: Umberto Ellis MD May 29, 2017 16:46
[2017-05-29] MEDS: ATORVASTATIN 80 MG TAB PO SCH (20:40)
[2017-05-29] MEDS: MIRTAZAPINE 15 MG TAB PO SCH (20:41)
[2017-05-30] VITALS (7 sets, daily range): BP systolic 129–175; BP diastolic 61–89; PULSE 60–75; RESP 18–22; TEMP 97.2–97.7; O2SAT 92–100
[2017-05-30] MEDS: SODIUM CHLOR 0.9% 1000 ML INJ 1,000 ML IV SCH (05:22)
[2017-05-30 09:13] LABS: MEAN CELL VOLUME 95.2 FL (80.0-100.0); MEAN CORPUSCULAR HEMOGLOBIN 32.3 PG (27.0-34.0); PLATELET COUNT 63 TH/MM3 (150-450); RED BLOOD COUNT 3.15 MIL/MM3 (4.00-5.30); WHITE BLOOD COUNT 6.9 TH/MM3 (4.0-11.0)
[2017-05-30 09:15] LABS: REVIEW FLAG FINAL
[2017-05-30 09:20] LABS: BICARBONATE 24.5 MEQ/L (21.0-32.0); POTASSIUM 3.1 MEQ/L (3.5-5.1)
[2017-05-30] MEDS: CARVEDILOL 12.5 MG TAB PO SCH ×2 (09:33→21:16)
[2017-05-30] MEDS: FUROSEMIDE 20 MG TAB PO SCH (09:34)
[2017-05-30] MEDS: SPIRONOLACTONE 25 MG TAB PO SCH (09:34)
[2017-05-30] MEDS: SODIUM CHLORIDE 0.9% FLUSH 10 ML FLUSH IV FLUSH SCH ×2 (09:34→21:15)
[2017-05-30] MEDS: risperiDONE 0.25 MG TAB PO SCH ×2 (09:34→21:16)
[2017-05-30] MEDS: APIXABAN 2.5 MG TABLET PO SCH ×2 (09:34→21:16)
--- NOTE | 2017-05-30 09:35 | HHI.PR ---
Subjective Remarks Patient is resting comfortable in bed. Does report some anxiety. Alert and responding to all questions Objective Vital Signs Date Time Temp Pulse Resp B/P (MAP) Pulse Ox O2 Delivery O2 Flow Rate FiO2 05/30/17 04:00 97.7 66 20 162/82 (108) 94 05/30/17 00:00 97.5 60 20 175/74 (107) 94 05/29/17 20:00 Room Air 05/29/17 20:00 98.0 64 18 150/76 (100) 93 05/29/17 16:05 97.7 60 21 142/84 (103) 93 05/29/17 13:54 93 05/29/17 12:25 97.8 61 20 145/68 (93) 93 05/29/17 10:20 Room Air I/O 05/29/17 05/29/17 05/29/17 05/30/17 05/30/17 05/30/17 07:00 15:00 23:00 07:00 15:00 23:00 Intake Total 420 ml 1956 ml 0 ml Output Total 2100 ml 550 ml 300 ml Balance -1680 ml 1406 ml -300 ml Intake Oral 420 ml 120 ml 0 ml IV Total 1836 ml Output Urine Total 2100 ml 550 ml 300 ml # Bowel Movements 1 0 0 Result Diagram: 05/30/17 0845 05/30/1745 Imaging Laboratory Tests Test 05/24/17 12:42 05/24/17 13:45 05/24/17 17:52 05/25/17 03:29 Bedside Hemoglobin 8.5 G/DL Bedside Hematocrit 25.0 % Platelet Estimate LOW Platelet Morphology Comment NORMAL Polychromasia 2.0 % Prothrombin Time 13.6 SEC Prothromb Time International Ratio 1.2 RATIO Activated Partial Thromboplast Time 29.6 SEC Fibrinogen 248 mg/dL Bedside Sodium 139 MMOL/L Bedside Potassium 3.7 MMOL/L Bedside Chloride 100 MMOL/L Bedside Blood Urea Nitrogen 14 MG/DL Bedside Creatinine 0.7 MG/DL Bedside Glucose 126 MG/DL Lactic Acid Level 1.0 mmol/L Total Creatine Kinase 161 U/L Urine Color YELLOW Urine Turbidity CLEAR Urine pH 5.5 Urine Specific [place] 1.014 Urine Protein 30 mg/dL Urine Glucose (UA) NEG mg/dL Urine Ketones NEG mg/dL Urine Occult Blood NEG Urine Nitrite NEG Urine Bilirubin NEG Urine Urobilinogen LESS THAN 2.0 MG/DL Urine Leukocyte Esterase NEG Urine RBC LESS THAN 1 /hpf Urine WBC 1 /hpf Urine Mucus FEW /lpf Urine Opiates Screen NEG Urine Barbiturates Screen NEG Urine Amphetamines Screen NEG Urine Benzodiazepines Screen NEG Urine Cocaine Screen NEG Urine Cannabinoids Screen NEG Vitamin B12 Level 1199 PG/ML Neutrophils (%) (Auto) 73.4 % Lymphocytes (%) (Auto) 13.6 % Monocytes (%) (Auto) 9.9 % Eosinophils (%) (Auto) 2.6 % Basophils (%) (Auto) 0.5 % Neutrophils # (Auto) 4.0 TH/MM3 Lymphocytes # (Auto) 0.7 TH/MM3 Monocytes # (Auto) 0.5 TH/MM3 Eosinophils # (Auto) 0.1 TH/MM3 Basophils # (Auto) 0.0 TH/MM3 CBC Comment DIFF FINAL Differential Comment Troponin I 0.09 NG/ML Triglycerides Level 58 MG/DL Cholesterol Level LESS THAN 50 MG/DL LDL Cholesterol 12 MG/DL HDL Cholesterol 26.2 MG/DL Cholesterol/HDL Ratio 1.90 RATIO Test 05/28/17 17:15 05/30/17 08:45 Blood Gas Puncture Site RT RADIAL Blood Gas Patient Temperature 98.6 Blood Gas HCO3 26 mmol/L Blood Gas Base Excess 1.3 mmol/L Blood Gas Oxygen Saturation 97 % Arterial Blood pH 7.40 Arterial Blood Partial Pressure CO2 43 mmHg Arterial Blood Partial Pressure O2 119 mmHg Arterial Blood Oxygen Content 12.7 Vol % Arterial Blood Carboxyhemoglobin 1.9 % Arterial Blood Methemoglobin 0.7 % Blood Gas Hemoglobin 9.2 G/DL Oxygen Delivery Device NASAL CANNULA Blood Gas Liter Flow 2 L/M White Blood Count 6.9 TH/MM3 Red Blood Count 3.15 MIL/MM3 Hemoglobin 10.2 GM/DL Hematocrit 30.0 % Mean Corpuscular Volume 95.2 FL Mean Corpuscular Hemoglobin 32.3 PG Mean Corpuscular Hemoglobin Concent 34.0 % Red Cell Distribution Width 17.0 % Platelet Count 63 TH/MM3 Mean Platelet Volume 9.9 FL Blood Urea Nitrogen 11 MG/DL Creatinine 0.51 MG/DL Random Glucose 122 MG/DL Calcium Level 7.6 MG/DL Sodium Level 139 MEQ/L Potassium Level 3.1 MEQ/L Chloride Level 105 MEQ/L Carbon Dioxide Level 24.5 MEQ/L Anion Gap 10 MEQ/L Estimat Glomerular Filtration Rate 115 ML/MIN Objective Remarks GENERAL: Alert and cooperative. SKIN: Warm and dry. Skin tear left arm HEAD: Normocephalic. EYES: No scleral icterus. No injection or drainage. NECK: Supple, trachea midline. No JVD or lymphadenopathy. CARDIOVASCULAR: Regular rate and rhythm without murmurs, gallops, or rubs. RESPIRATORY: Breath sounds equal bilaterally. No accessory muscle use. GASTROINTESTINAL: Abdomen soft, non-tender, nondistended. MUSCULOSKELETAL: No cyanosis, or edema. BACK: Nontender without obvious deformity. No CVA tenderness. Medications and IVs Current Medications Medications (Trade) Dose Ordered Sig/Linda Route Start Time Stop Time Status Last Admin (NS Flush) 2 ml BID IV FLUSH 05/24/17 21:00 05/29/17 20:40 (NS Flush) 2 ml UNSCH PRN IV FLUSH 05/24/17 14:15 (Tylenol) 500 mg Q4H PRN PO 05/24/17 14:15 05/25/17 14:05 (Ecotrin Ec) 81 mg DAILY PO 05/26/17 09:00 Future Hold 05/28/17 09:11 (Coreg) 25 mg BID PO 05/25/17 21:00 05/29/17 20:40 (Ismo) 30 mg DAILY PO 05/26/17 09:00 05/29/17 10:07 (Remeron) 15 mg HS PO 05/25/17 21:00 05/29/17 20:41 (Aldactone) 12.5 mg DAILY PO 05/26/17 09:00 05/29/17 10:07 (Lipitor) 80 mg HS PO 05/25/17 21:00 05/29/17 20:40 (Pill Splitter) 1 ea UNSCH PRN OTHER 05/25/17 16:00 (Eliquis) 2.5 mg BID PO 05/25/17 21:00 05/29/17 20:40 (risperDAL) 0.25 mg Q12HR PO 05/27/17 14:00 05/29/17 20:40 (Duoneb Neb) 1 ampule Q6HR NEB PRN NEB 05/28/17 05:00 05/29/17 10:53 (Lasix) 20 mg DAILY PO 05/29/17 09:00 05/29/17 10:07 Assessment and Plan Problem List: (1) HLD (hyperlipidemia) ICD Codes: E78.5 - Hyperlipidemia, unspecified (2) HTN (hypertension) ICD Codes: I10 - Essential (primary) hypertension (3) Altered mental status ICD Codes: R41.82 - Altered mental status, unspecified Status: Chronic (4) Elevated troponin ICD Codes: R74.8 - Abnormal levels of other serum enzymes (5) Dementia ICD Codes: F03.90 - Unspecified dementia without behavioral disturbance Status: Chronic (6) TIA (transient ischemic attack) ICD Codes: G45.9 - Transient cerebral ischemic attack, unspecified Assessment and Plan 05/25/17 AMS: Patient with mild confusion. Neurology consulted. No acute findings noted thus far. EEG and MRI ordered. Speech is delayed. PT and OT ordered HX CVA: On statin and ASA HLD: Continue Statin HTN: home medication continued. Positive trop: mildly elevated at 0.09. Cardiology consulted and ECHO pending \Labs in AM 05/26/17 AMS: MRI with small acute ischemic events, left occipital and caudate. Neurology managing. On ASA and eliquis. Patient with increased confusion this morning. Allergy list needs to put be added order written for nursing will add medication for agitation once added. EEG: Abnormal EEG due to mild moderate slowing consistent with encephalopathic process. No findings to suggest seizure or seizure focus . Urinary retention: Per nursing patient has not urinated. Order to put medina back in and obtain UA Skin tear: Patient pulled IV out on left arm and skin tear obtained. wound care ordered. Labs pending this AM 05/27/17 Acute CVA; Neurology consulted. On ASA, eliquis, and statin. Patient is confused and gets agitated at times. Will add Risperdal BID and monitor. On telemetry but with confusion patient is constantly pulling. No abnormalities noted on telemetry. Urinary retention: medina placed and monitoring. Will add flomax and remove medina in AM. UA is negative HTN; well controlled on current regimen 05/28/17 Acute CVA; neurology consulted. On ASA, eliquis, and statin. ASA put on hold for thrombocytopenia. 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 Patient mental status is continuing to decline. Per nursing has had a poor appetite and sleeping most of day. Son at bedside. Patient wakes up to commands and answers questions and goes back to sleep. O2 2 liters at 96 % but will obtain blood gas to look for elevated CO2 levels. Patient is a do not intubate SOB: Last night per nursing SOB reported. Breathing treatments ordered and chest Xray this AM. On o2 2 liters with good sats. Chest Xray demonstrating moderate bilateral pulmonary edema. UOP at 450. Discussed with Dr. Patino pending ABG will order IVF since patient has minimal PO intake and gentle diuresis with pulmonary edema noted. Will obtain cbc, BMP, and BNP in AM code status is compressions and shock only discussed with son and he will be talking to family and possibly changing to full code. 05/30/17 Acute CVA: Neurology consulted and managing. Discussed with neurology. On Eliquis with ASA on home with thrombocytopenia. Hematology consulted for recommendations. Alert and cooperative today. Will discontinue IVF's. Hypokalmeia: Potassium 3.1 will add replacement Urinary retention: Will remove medina and monitor for retention. HTN: blood pressure elevated t 162/82 will increase isosorbide. I and the STEAM FLATTENER have both examined this patient and reviewed this note and I agree with these findings and plan of care. Kenyon Patino DO Discussed Condition With Nursing. Problem Qualifiers (1) HTN (hypertension): Qualified Codes: I10 - Essential (primary) hypertension (2) Altered mental status: Qualified Codes: R41.82 - Altered mental status, unspecified (3) Dementia: Ambreen Lyon [employer] May 30, 2017 09:34
[2017-05-30] MEDS ORDERED: ONDANSETRON ODT 4 MG TAB PO PRN (10:00)
[2017-05-30] MEDS ORDERED: FUROSEMIDE 40 MG/4 ML VIAL IV PUSH ONE (10:30)
[2017-05-30] MEDS ORDERED: POTASSIUM CHLORIDE 20 MEQ CONTROLLED RELEASE TAB PO ONE (11:00)
[2017-05-30 12:07] LABS: BACTERIA, URINE MANY /hpf; BLOOD, URINE LARGE (NEG); COMMENT (UR) CATH-CULTURE IND; CULTURE IF INDICATED CATH CULTURE IND; GLUCOSE,URINE NEG (NEG); KETONE, URINE 10 mg/dL (NEG); MUCUS URINE MANY /lpf (OCC); NITRITE,URINE POS (NEG)
[2017-05-30 12:09] LABS: URINE COLOR BROWN (YELLW/STRAW)
--- NOTE | 2017-05-30 16:03 | PD.CARD.PN ---
Subjective Subjective Remarks No CP or SOB, resting, son present Objective Medications Current Medications Medications (Trade) Dose Ordered Sig/Linda Route Start Time Stop Time Status Last Admin (NS Flush) 2 ml BID IV FLUSH 05/24/17 21:00 05/30/17 09:34 (NS Flush) 2 ml UNSCH PRN IV FLUSH 05/24/17 14:15 (Tylenol) 500 mg Q4H PRN PO 05/24/17 14:15 05/25/17 14:05 (Ecotrin Ec) 81 mg DAILY PO 05/26/17 09:00 Future Hold 05/28/17 09:11 (Coreg) 25 mg BID PO 05/25/17 21:00 05/30/17 09:33 (Remeron) 15 mg HS PO 05/25/17 21:00 05/29/17 20:41 (Aldactone) 12.5 mg DAILY PO 05/26/17 09:00 05/30/17 09:34 (Lipitor) 80 mg HS PO 05/25/17 21:00 05/29/17 20:40 (Pill Splitter) 1 ea UNSCH PRN OTHER 05/25/17 16:00 (Eliquis) 2.5 mg BID PO 05/25/17 21:00 05/30/17 09:34 (risperDAL) 0.25 mg Q12HR PO 05/27/17 14:00 05/30/17 09:34 (Duoneb Neb) 1 ampule Q6HR NEB PRN NEB 05/28/17 05:00 05/29/17 10:53 (Lasix) 20 mg DAILY PO 05/29/17 09:00 05/30/17 09:34 (KCl) 20 meq DAILY PO 05/31/17 09:00 (Ismo) 60 mg DAILY PO 05/31/17 09:00 (Zofran Odt) 4 mg Q6H PRN PO 05/30/17 10:00 05/30/17 12:28 Vital Signs / I&O Vital Signs Date Time Temp Pulse Resp B/P (MAP) Pulse Ox O2 Delivery O2 Flow Rate FiO2 05/30/17 12:00 97.7 63 18 129/61 (83) 100 05/30/17 09:42 Nasal Cannula 2.00 05/30/17 09:27 92 21 05/30/17 08:00 97.6 62 18 169/89 (115) 92 05/30/17 04:00 97.7 66 20 162/82 (108) 94 05/30/17 00:00 97.5 60 20 175/74 (107) 94 05/29/17 20:00 Room Air 05/29/17 20:00 98.0 64 18 150/76 (100) 93 05/29/17 16:05 97.7 60 21 142/84 (103) 93 I/O 05/29/17 05/29/17 05/29/17 05/30/17 05/30/17 05/30/17 07:00 15:00 23:00 07:00 15:00 23:00 Intake Total 420 ml 1956 ml 0 ml 1297 ml Output Total 2100 ml 550 ml 300 ml Balance -1680 ml 1406 ml -300 ml 1297 ml Intake Oral 420 ml 120 ml 0 ml IV Total 1836 ml 1297 ml Output Urine Total 2100 ml 550 ml 300 ml # Bowel Movements 1 0 0 Physical Exam GENERAL: In NAD SKIN: Warm and dry. HEAD: Normocephalic. EYES: No scleral icterus. No injection or drainage. NECK: Supple, trachea midline. No JVD or lymphadenopathy. CARDIOVASCULAR: Regular rate and rhythm without murmurs, gallops, or rubs. RESPIRATORY: Breath sounds equal bilaterally. No accessory muscle use. GASTROINTESTINAL: Abdomen soft, non-tender, nondistended. MUSCULOSKELETAL: No cyanosis, or edema. Mildly confused Laboratory Laboratory Tests Test 05/30/17 08:45 05/30/17 10:33 White Blood Count 6.9 TH/MM3 Red Blood Count 3.15 MIL/MM3 Hemoglobin 10.2 GM/DL Hematocrit 30.0 % Mean Corpuscular Volume 95.2 FL Mean Corpuscular Hemoglobin 32.3 PG Mean Corpuscular Hemoglobin Concent 34.0 % Red Cell Distribution Width 17.0 % Platelet Count 63 TH/MM3 Mean Platelet Volume 9.9 FL Blood Urea Nitrogen 11 MG/DL Creatinine 0.51 MG/DL Random Glucose 122 MG/DL Calcium Level 7.6 MG/DL Sodium Level 139 MEQ/L Potassium Level 3.1 MEQ/L Chloride Level 105 MEQ/L Carbon Dioxide Level 24.5 MEQ/L Anion Gap 10 MEQ/L Estimat Glomerular Filtration Rate 115 ML/MIN Urine Color BROWN Urine Turbidity MARKED Urine pH 6.0 Urine Specific [place] 1.018 Urine Protein 300 mg/dL Urine Glucose (UA) NEG mg/dL Urine Ketones 10 mg/dL Urine Occult Blood LARGE Urine Nitrite POS Urine Bilirubin NEG Urine Urobilinogen LESS THAN 2.0 MG/DL Urine Leukocyte Esterase MOD Urine RBC /hpf Urine WBC /hpf Urine WBC Clumps MANY Urine Bacteria MANY /hpf Urine Mucus MANY /lpf Microscopic Urinalysis Comment CATH-CULTURE IND Assessment and Plan Problem List: (1) Altered mental status ICD Codes: R41.82 - Altered mental status, unspecified Status: Chronic (2) TIA (transient ischemic attack) ICD Codes: G45.9 - Transient cerebral ischemic attack, unspecified (3) Dementia ICD Codes: F03.90 - Unspecified dementia without behavioral disturbance Status: Chronic (4) Elevated troponin ICD Codes: R74.8 - Abnormal levels of other serum enzymes Assessment and Plan No new cardiac issues. Remains stable from cardiac standpoint. No angina or CHF symptoms. No evidence of ACS. Echo shows preserved LV systolic function with no wall motion abnormalities. Neuro evaluation. Increase activity, PT. D/w pt's son. Problem Qualifiers (1) Altered mental status: Qualified Codes: R41.82 - Altered mental status, unspecified (2) Dementia: Umberto Ellis MD May 30, 2017 16:03
[2017-05-30] MEDS: ACETAMINOPHEN 500 MG CPLT PO PRN (16:12)
--- NOTE | 2017-05-30 18:46 | HHI.PR ---
Review/Management Daily Summary 05/25 I saw her earlier today before mri and she seemed stable and confused spoke to RN at the time i saw her mri results just seen small acute ischemic events, left occipital and caudate, dementia A fib on eliquis 2.5 mg bid and asa 81 mg would continue these meds and supportive care oob with PT 05/29 doing relatively well neuro follows commands "sleeping" but will talk and maintain eyes closed throughout moves limbs well continue supportive medical care eliquis low platelet, asa on hold 05/30 spoke with medicine team staff earlier today seen about an our ago she was perked up, conversing, in good spirits, partially oriented ok neuro mg to go to rehab office f/u in 2 weeks Subjective Subjective Comments No acute events reported No headache No chest pain No dyspnea Active Medications Current Medications Medications (Trade) Dose Ordered Sig/Linda Route Start Time Stop Time Status Last Admin (NS Flush) 2 ml BID IV FLUSH 05/24/17 21:00 05/30/17 09:34 (NS Flush) 2 ml UNSCH PRN IV FLUSH 05/24/17 14:15 (Tylenol) 500 mg Q4H PRN PO 05/24/17 14:15 05/30/17 16:12 (Ecotrin Ec) 81 mg DAILY PO 05/26/17 09:00 Future Hold 05/28/17 09:11 (Coreg) 25 mg BID PO 05/25/17 21:00 05/30/17 09:33 (Remeron) 15 mg HS PO 05/25/17 21:00 05/29/17 20:41 (Aldactone) 12.5 mg DAILY PO 05/26/17 09:00 05/30/17 09:34 (Lipitor) 80 mg HS PO 05/25/17 21:00 05/29/17 20:40 (Pill Splitter) 1 ea UNSCH PRN OTHER 05/25/17 16:00 (Eliquis) 2.5 mg BID PO 05/25/17 21:00 05/30/17 09:34 (risperDAL) 0.25 mg Q12HR PO 05/27/17 14:00 05/30/17 09:34 (Duoneb Neb) 1 ampule Q6HR NEB PRN NEB 05/28/17 05:00 05/29/17 10:53 (Lasix) 20 mg DAILY PO 05/29/17 09:00 05/30/17 09:34 (KCl) 20 meq DAILY PO 05/31/17 09:00 (Ismo) 60 mg DAILY PO 05/31/17 09:00 (Zofran Odt) 4 mg Q6H PRN PO 05/30/17 10:00 05/30/17 12:28 Allergies Allergies Coded Allergies No Known Allergies ([id number]) Exam I&O / VS 05/30/17 05/30/17 05/31/17 15:00 23:00 07:00 Intake Total 1297 ml 360 ml Output Total 1700 ml Balance 1297 ml -1340 ml Intake Oral 360 ml IV Total 1297 ml Output Urine Total 1700 ml # Bowel Movements 1 Vital Signs Date Time Temp Pulse Resp B/P (MAP) Pulse Ox O2 Delivery O2 Flow Rate FiO2 05/30/17 16:00 97.7 75 22 147/65 (92) 100 05/30/17 12:00 97.7 63 18 129/61 (83) 100 05/30/17 09:42 Nasal Cannula 2.00 05/30/17 09:27 92 21 05/30/17 08:00 97.6 62 18 169/89 (115) 92 05/30/17 04:00 97.7 66 20 162/82 (108) 94 05/30/17 00:00 97.5 60 20 175/74 (107) 94 05/29/17 20:00 Room Air 05/29/17 20:00 98.0 64 18 150/76 (100) 93 Objective Micro and Labs Laboratory Tests Test 05/30/17 08:45 05/30/17 10:33 White Blood Count 6.9 Red Blood Count 3.15 Hemoglobin 10.2 Hematocrit 30.0 Mean Corpuscular Volume 95.2 Mean Corpuscular Hemoglobin 32.3 Mean Corpuscular Hemoglobin Concent 34.0 Red Cell Distribution Width 17.0 Platelet Count 63 Mean Platelet Volume 9.9 Blood Urea Nitrogen 11 Creatinine 0.51 Random Glucose 122 Calcium Level 7.6 Sodium Level 139 Potassium Level 3.1 Chloride Level 105 Carbon Dioxide Level 24.5 Anion Gap 10 Estimat Glomerular Filtration Rate 115 Urine Color BROWN Urine Turbidity MARKED Urine pH 6.0 Urine Specific [place] 1.018 Urine Protein 300 Urine Glucose (UA) NEG Urine Ketones 10 Urine Occult Blood LARGE Urine Nitrite POS Urine Bilirubin NEG Urine Urobilinogen LESS THAN 2.0 Urine Leukocyte Esterase MOD Urine RBC Urine WBC Urine WBC Clumps MANY Urine Bacteria MANY Urine Mucus MANY Microscopic Urinalysis Comment CATH-CULTURE IND Date/Time Source Procedure Growth Status 05/30/17 10:33 Urine Catheterized Urine Urine Culture Pending Received Ariela Das MD May 30, 2017 18:46
[2017-05-30] MEDS: ATORVASTATIN 80 MG TAB PO SCH (21:16)
[2017-05-30] MEDS: MIRTAZAPINE 15 MG TAB PO SCH (21:16)
[2017-05-31] VITALS (7 sets, daily range): BP systolic 105–158; BP diastolic 54–77; PULSE 59–64; RESP 16–20; TEMP 97.1–97.9; O2SAT 93–95
--- NOTE | 2017-05-31 08:46 | HHI.PR ---
Subjective Remarks Patient is resting comfortable in bed. Alert and cooperative. Objective Vital Signs Date Time Temp Pulse Resp B/P (MAP) Pulse Ox O2 Delivery O2 Flow Rate FiO2 05/31/17 04:00 97.1 59 20 105/57 (73) 94 05/31/17 00:00 97.8 60 20 112/54 (73) 95 05/30/17 20:00 97.2 61 18 154/72 (99) 93 05/30/17 20:00 Nasal Cannula 2.00 05/30/17 20:00 21 05/30/17 16:00 97.7 75 22 147/65 (92) 100 05/30/17 12:00 97.7 63 18 129/61 (83) 100 05/30/17 09:42 Nasal Cannula 2.00 05/30/17 09:27 92 21 I/O 05/30/17 05/30/17 05/30/17 05/31/17 05/31/17 05/31/17 07:00 15:00 23:00 07:00 15:00 23:00 Intake Total 0 ml 1297 ml 360 ml 120 ml Output Total 300 ml 1700 ml Balance -300 ml 1297 ml -1340 ml 120 ml Intake Oral 0 ml 360 ml 120 ml IV Total 1297 ml Output Urine Total 300 ml 1700 ml Bladder Scan Volume Amount 170 ml # Voids 0 # Bowel Movements 0 1 0 Result Diagram: 05/30/17 0845 05/30/1745 Objective Remarks GENERAL: Alert and cooperative. SKIN: Warm and dry. Skin tear left arm HEAD: Normocephalic. EYES: No scleral icterus. No injection or drainage. NECK: Supple, trachea midline. No JVD or lymphadenopathy. CARDIOVASCULAR: Regular rate and rhythm without murmurs, gallops, or rubs. RESPIRATORY: Breath sounds equal bilaterally. No accessory muscle use. GASTROINTESTINAL: Abdomen soft, non-tender, nondistended. MUSCULOSKELETAL: No cyanosis, or edema. BACK: Nontender without obvious deformity. No CVA tenderness. Medications and IVs Current Medications Medications (Trade) Dose Ordered Sig/Linda Route Start Time Stop Time Status Last Admin (NS Flush) 2 ml BID IV FLUSH 05/24/17 21:00 05/30/17 21:15 (NS Flush) 2 ml UNSCH PRN IV FLUSH 05/24/17 14:15 (Tylenol) 500 mg Q4H PRN PO 05/24/17 14:15 05/30/17 16:12 (Ecotrin Ec) 81 mg DAILY PO 05/26/17 09:00 Future Hold 05/28/17 09:11 (Coreg) 25 mg BID PO 05/25/17 21:00 05/30/17 21:16 (Remeron) 15 mg HS PO 05/25/17 21:00 05/30/17 21:16 (Aldactone) 12.5 mg DAILY PO 05/26/17 09:00 05/30/17 09:34 (Lipitor) 80 mg HS PO 05/25/17 21:00 05/30/17 21:16 (Pill Splitter) 1 ea UNSCH PRN OTHER 05/25/17 16:00 (Eliquis) 2.5 mg BID PO 05/25/17 21:00 05/30/17 21:16 (risperDAL) 0.25 mg Q12HR PO 05/27/17 14:00 05/30/17 21:16 (Duoneb Neb) 1 ampule Q6HR NEB PRN NEB 05/28/17 05:00 05/29/17 10:53 (Lasix) 20 mg DAILY PO 05/29/17 09:00 05/30/17 09:34 (KCl) 20 meq DAILY PO 05/31/17 09:00 (Ismo) 60 mg DAILY PO 05/31/17 09:00 (Zofran Odt) 4 mg Q6H PRN PO 05/30/17 10:00 05/30/17 12:28 Assessment and Plan Problem List: (1) HLD (hyperlipidemia) ICD Codes: E78.5 - Hyperlipidemia, unspecified (2) HTN (hypertension) ICD Codes: I10 - Essential (primary) hypertension (3) Altered mental status ICD Codes: R41.82 - Altered mental status, unspecified Status: Chronic (4) Elevated troponin ICD Codes: R74.8 - Abnormal levels of other serum enzymes (5) Dementia ICD Codes: F03.90 - Unspecified dementia without behavioral disturbance Status: Chronic (6) TIA (transient ischemic attack) ICD Codes: G45.9 - Transient cerebral ischemic attack, unspecified Assessment and Plan 05/25/17 AMS: Patient with mild confusion. Neurology consulted. No acute findings noted thus far. EEG and MRI ordered. Speech is delayed. PT and OT ordered HX CVA: On statin and ASA HLD: Continue Statin HTN: home medication continued. Positive trop: mildly elevated at 0.09. Cardiology consulted and ECHO pending \Labs in AM 05/26/17 AMS: MRI with small acute ischemic events, left occipital and caudate. Neurology managing. On ASA and eliquis. Patient with increased confusion this morning. Allergy list needs to put be added order written for nursing will add medication for agitation once added. EEG: Abnormal EEG due to mild moderate slowing consistent with encephalopathic process. No findings to suggest seizure or seizure focus . Urinary retention: Per nursing patient has not urinated. Order to put medina back in and obtain UA Skin tear: Patient pulled IV out on left arm and skin tear obtained. wound care ordered. Labs pending this AM 05/27/17 Acute CVA; Neurology consulted. On ASA, eliquis, and statin. Patient is confused and gets agitated at times. Will add Risperdal BID and monitor. On telemetry but with confusion patient is constantly pulling. No abnormalities noted on telemetry. Urinary retention: medina placed and monitoring. Will add flomax and remove mednia in AM. UA is negative HTN; well controlled on current regimen 05/28/17 Acute CVA; neurology consulted. On ASA, eliquis, and statin. ASA put on hold for thrombocytopenia. 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 Patient mental status is continuing to decline. Per nursing has had a poor appetite and sleeping most of day. Son at bedside. Patient wakes up to commands and answers questions and goes back to sleep. O2 2 liters at 96 % but will obtain blood gas to look for elevated CO2 levels. Patient is a do not intubate SOB: Last night per nursing SOB reported. Breathing treatments ordered and chest Xray this AM. On o2 2 liters with good sats. Chest Xray demonstrating moderate bilateral pulmonary edema. UOP at 450. Discussed with Dr. Patino pending ABG will order IVF since patient has minimal PO intake and gentle diuresis with pulmonary edema noted. Will obtain cbc, BMP, and BNP in AM code status is compressions and shock only discussed with son and he will be talking to family and possibly changing to full code. 05/30/17 Acute CVA: Neurology consulted and managing. Discussed with neurology. On Eliquis with ASA on home with thrombocytopenia. Hematology consulted for recommendations. Alert and cooperative today. Will discontinue IVF's. Hypokalmeia: Potassium 3.1 will add replacement Urinary retention: Will remove medina and monitor for retention. HTN: blood pressure elevated t 162/82 will increase isosorbide. 05/31/17 Acute CVA: Alert and cooperative today. Cleared neuro mg for discharge. Hematology consulted for recommendations for anticaigulation Left arm swelling: US ordered to r/o DVT Urinary retention: Medina removed last night at 12:30 bladder scanned this morning for only 170cc. Will repeat bladder scan if no urinary out put in 4 hours. Fluids encouraged. HTN: continue current therapy. I and the PARKING RAMP ATTENDANT have both examined this patient and reviewed this note and I agree with these findings and plan of care. Kenyon Patino DO Problem Qualifiers (1) HTN (hypertension): Qualified Codes: I10 - Essential (primary) hypertension (2) Altered mental status: Qualified Codes: R41.82 - Altered mental status, unspecified (3) Dementia: Ambreen Lyon PARKING RAMP ATTENDANT May 31, 2017 08:46
--- NOTE | 2017-05-31 08:48 | MB ---
cc: BEKA MCCALL MD DATE OF 1935 DATE OF CONSULTATION 05/31/[address] Patino. REASON FOR CONSULTATION Patient with thrombocytopenia and anemia. Currently on anticoagulation with intermediate dose Eliquis. CHIEF COMPLAINT Ms. Myas has dementia and difficulty recalling historical details. The history has been obtained from the past medical record. Her major complaint is that of swelling in her left upper extremity. She denies pain. HISTORY OF PRESENT ILLNESS Ms. Mays is an 81-year-old female with a previous history of recurrent strokes, encephalomalacia, hypertension and hyperlipidemia. She has a history of cardiac arrhythmia and does have an implanted pacemaker which was placed in March of 2016. The patient presented to [facility] Emergency Department on 05/24/2017 after she developed altered mental status and was found to be not responsive at her snf facility/inpatient rehab. She was brought in by EMS. The patient did undergo a neurologic workup as well as cardiac workup to rule out cardiac arrhythmia and has since then recovered to her baseline mental status which is being alert and oriented to person but not so much to place and time. She does have underlying dementia. The hematology service has been asked to see her for further workup and evaluation of thrombocytopenia. Based on medical records available to me, the thrombocytopenia dates back to 2004. It is more severe now with platelet counts ranging between 70,000 and 65,000. She had been on antiplatelet therapy and anticoagulation. Ms. Mays tells me she had some sort of blood disorder for which she was seeing a union steward in [place]. She is unable to elaborate any further. PAST MEDICAL HISTORY 1. Hypertension. 2. Hyperlipidemia. 3. Cardiac arrhythmia. 4. Dementia. 5. Recurrent strokes. 6. Recurrent falls. PAST SURGICAL HISTORY 1. I am unable to obtain a full past surgical history; however, the patient does have a pacemaker in place. 2. She also recently suffered a right tib-fib fracture for which she is on nonoperative management. SOCIAL HISTORY She is . She had been in inpatient rehab for rehab of her recent tib-fib fracture. FAMILY HISTORY Unable to obtain. ALLERGIES No known drug allergies. CURRENT INPATIENT MEDICATIONS 1. Eliquis 2.5 mg twice daily. 1. Tylenol 500 mg every 4 hours as needed for headache. 2. DuoNebs as needed for dyspnea q.6 hours. 3. Aspirin 81 mg on hold. 4. Atorvastatin 80 mg p.o. q.h.s. 5. Coreg 25 mg p.o. b.i.d. 6. Lasix 20 mg p.o. daily. 7. Isosorbide mononitrate 60 mg p.o. daily. 8. Mirtazapine 15 mg p.o. q.h.s. 9. Zofran 4 mg p.o. q.6 hours. 10. Potassium chloride 20 mEq daily. 11. Risperdal 0.25 mg p.o. q.12 hours. 12. Spironolactone 12.5 mg p.o. daily. REVIEW OF SYSTEMS A 13-point review of systems was attempted. The patient denies complaints other than having swelling of her left arm. She tells me her memory is poor. She denies difficulty breathing. She denies chest pain. She denies abdominal pain. She denies nausea or vomiting. She denies bleeding. She denies headaches. She denies fevers or chills. PHYSICAL EXAMINATION VITAL SIGNS: Temperature 97.1 degrees Fahrenheit, heart rate 59 beats per minute, respiratory rate 20, blood pressure is 105/57, O2 sats 94% on 2 liters nasal cannula. GENERAL PHYSICAL APPEARANCE: Ms. Mays is an elderly lady. She is laying in bed. She appears to be in no acute distress. She is oriented to person but not so much to place or time or situation. HEENT: Head atraumatic, normocephalic. Conjunctivae are mildly pale, sclerae are anicteric. EOMI, PERRLA. Oral exam - no pharyngeal erythema. NECK EXAM: No palpable cervical or supraclavicular lymphadenopathy. RESPIRATORY EXAM: Good air movement bilaterally. No added breath sounds. CARDIOVASCULAR EXAM: Regular rate and rhythm. S1, S2. No obvious murmurs, rubs or gallops. ABDOMINAL EXAM: Protuberant, soft. No obvious tenderness. No palpable organ enlargement. LOWER EXTREMITIES: No pretibial edema or calf tenderness. UPPER EXTREMITIES: Left upper extremity edema is noted. LABORATORY FINDINGS Blood work dated 05/30/2017 - WBC count 6.9, hemoglobin 10.2 gm/dl, hematocrit 30%, MCV 95, platelet count 63. Absolute neutrophil count is 4. Chemistries: Sodium 139, potassium 3.1, chloride 105, bicarb 24.5, BUN is 10, creatinine is 0.5, EGFR 115, random glucose 122, calcium 7.6. IMAGING STUDIES MRI of the brain dated 05/25/2017: Small non-hemorrhagic infarction involving the left occipital lobe with a tiny focus of non-hemorrhagic infarction involving the head of the caudate lobe. Atrophy and chronic small-vessel ischemic changes, encephalomalacia within the right frontal lobe. Chronic pansinusitis is noted as well. ASSESSMENT Ms. Mays is an 81-year-old female whom I have been asked to see for further workup and management of what appears to be a chronic thrombocytopenia. The patient has a history of dementia secondary to small vessel ischemic changes involving the brain; her MRI of the brain shows marked changes related to ischemia and encephalomalacia. She also has a history of cardiac arrhythmia for which a pacemaker was placed in March of 2016. She recently fractured her right leg with a tib-fib fracture which is being managed conservatively. I have been asked to see this patient to help further workup with thrombocytopenia and to help sort out and address the competing issues which include the indications for anticoagulation in an individual with cardiac arrhythmia, recurrent strokes. However, she is somebody who is at high risk for recurrent falls and has thrombocytopenia, both of which increase the risk of bleeding. The chronicity of her thrombocytopenia seems to be documented in our EMR and seems to date back at least to 2004. It appears that the thrombocytopenia is significantly worse now than it was 12 years ago. My initial impression (before I have had the chance to speak to her son who is also a physician or her ) is that to approach her management conservatively. I acknowledge the high risk of treatment-related adverse effects, specifically bleeding while on anticoagulation due to falls in the setting of thrombocytopenia. It appears she has significant dementia and I do not think this will be reversible. At the present time this individual is on intermediate dose Eliquis and I think it would be reasonable to continue this, it would also be reasonable to add on a low dose of aspirin at perhaps 81 mg every day or every other day to achieve an antiplatelet effect too so as to delay progressive microvascular ischemic changes in the brain. Her left upper extremity seems swollen to me and she indicates some discomfort but there was no tenderness to palpation. I have ordered an ultrasound Doppler to rule out a deep venous thrombosis. Additional recommendations will be made as additional results become known and once I am able to speak to the family regarding ultimate goals of care. MD JONAS Lira /7:58 AM /8:27 AM
--- NOTE | 2017-05-31 09:15 | PD.CARD.PN ---
Subjective Subjective Remarks No CP or SOB, resting, feels better Objective Medications Current Medications Medications (Trade) Dose Ordered Sig/Linda Route Start Time Stop Time Status Last Admin (NS Flush) 2 ml BID IV FLUSH 05/24/17 21:00 05/30/17 21:15 (NS Flush) 2 ml UNSCH PRN IV FLUSH 05/24/17 14:15 (Tylenol) 500 mg Q4H PRN PO 05/24/17 14:15 05/30/17 16:12 (Ecotrin Ec) 81 mg DAILY PO 05/26/17 09:00 Future Hold 05/28/17 09:11 (Coreg) 25 mg BID PO 05/25/17 21:00 05/30/17 21:16 (Remeron) 15 mg HS PO 05/25/17 21:00 05/30/17 21:16 (Aldactone) 12.5 mg DAILY PO 05/26/17 09:00 05/30/17 09:34 (Lipitor) 80 mg HS PO 05/25/17 21:00 05/30/17 21:16 (Pill Splitter) 1 ea UNSCH PRN OTHER 05/25/17 16:00 (Eliquis) 2.5 mg BID PO 05/25/17 21:00 05/30/17 21:16 (risperDAL) 0.25 mg Q12HR PO 05/27/17 14:00 05/30/17 21:16 (Duoneb Neb) 1 ampule Q6HR NEB PRN NEB 05/28/17 05:00 05/29/17 10:53 (Lasix) 20 mg DAILY PO 05/29/17 09:00 05/30/17 09:34 (KCl) 20 meq DAILY PO 05/31/17 09:00 (Ismo) 60 mg DAILY PO 05/31/17 09:00 (Zofran Odt) 4 mg Q6H PRN PO 05/30/17 10:00 05/30/17 12:28 Vital Signs / I&O Vital Signs Date Time Temp Pulse Resp B/P (MAP) Pulse Ox O2 Delivery O2 Flow Rate FiO2 05/31/17 04:00 97.1 59 20 105/57 (73) 94 05/31/17 00:00 97.8 60 20 112/54 (73) 95 05/30/17 20:00 97.2 61 18 154/72 (99) 93 05/30/17 20:00 Nasal Cannula 2.00 05/30/17 20:00 21 05/30/17 16:00 97.7 75 22 147/65 (92) 100 05/30/17 12:00 97.7 63 18 129/61 (83) 100 05/30/17 09:42 Nasal Cannula 2.00 05/30/17 09:27 92 21 I/O 05/30/17 05/30/17 05/30/17 05/31/17 05/31/17 05/31/17 07:00 15:00 23:00 07:00 15:00 23:00 Intake Total 0 ml 1297 ml 360 ml 120 ml Output Total 300 ml 1700 ml Balance -300 ml 1297 ml -1340 ml 120 ml Intake Oral 0 ml 360 ml 120 ml IV Total 1297 ml Output Urine Total 300 ml 1700 ml Bladder Scan Volume Amount 170 ml # Voids 0 # Bowel Movements 0 1 0 Physical Exam GENERAL: In NAD SKIN: Warm and dry. HEAD: Normocephalic. EYES: No scleral icterus. No injection or drainage. NECK: Supple, trachea midline. No JVD or lymphadenopathy. CARDIOVASCULAR: Regular rate and rhythm without murmurs, gallops, or rubs. RESPIRATORY: Breath sounds equal bilaterally. No accessory muscle use. GASTROINTESTINAL: Abdomen soft, non-tender, nondistended. MUSCULOSKELETAL: No cyanosis, or edema. Mildly confused Laboratory Laboratory Tests Test 05/30/17 10:33 Urine Color BROWN Urine Turbidity MARKED Urine pH 6.0 Urine Specific [place] 1.018 Urine Protein 300 mg/dL Urine Glucose (UA) NEG mg/dL Urine Ketones 10 mg/dL Urine Occult Blood LARGE Urine Nitrite POS Urine Bilirubin NEG Urine Urobilinogen LESS THAN 2.0 MG/DL Urine Leukocyte Esterase MOD Urine RBC /hpf Urine WBC /hpf Urine WBC Clumps MANY Urine Bacteria MANY /hpf Urine Mucus MANY /lpf Microscopic Urinalysis Comment CATH-CULTURE IND Assessment and Plan Problem List: (1) Altered mental status ICD Codes: R41.82 - Altered mental status, unspecified Status: Chronic (2) TIA (transient ischemic attack) ICD Codes: G45.9 - Transient cerebral ischemic attack, unspecified (3) Dementia ICD Codes: F03.90 - Unspecified dementia without behavioral disturbance Status: Chronic (4) Elevated troponin ICD Codes: R74.8 - Abnormal levels of other serum enzymes Assessment and Plan Remains stable from cardiac standpoint. No angina or CHF symptoms. No evidence of ACS. Echo showed preserved LV systolic function with no wall motion abnormalities. Evaluated by neurology. Increase activity, PT. Anticipate discharge/placement soon. Problem Qualifiers (1) Altered mental status: Qualified Codes: R41.82 - Altered mental status, unspecified (2) Dementia: Umberto Ellis MD May 31, 2017 09:15
[2017-05-31] MEDS: FUROSEMIDE 20 MG TAB PO SCH (10:53)
[2017-05-31] MEDS: CARVEDILOL 12.5 MG TAB PO SCH ×2 (10:53→21:56)
[2017-05-31] MEDS: ISOSORBIDE MONONITRATE 20 MG TAB PO SCH (10:55)
[2017-05-31] MEDS: SPIRONOLACTONE 25 MG TAB PO SCH (10:55)
[2017-05-31] MEDS: risperiDONE 0.25 MG TAB PO SCH ×2 (10:55→21:56)
[2017-05-31] MEDS: POTASSIUM CHLORIDE 20 MEQ CONTROLLED RELEASE TAB PO SCH (10:56)
[2017-05-31] MEDS: SODIUM CHLORIDE 0.9% FLUSH 10 ML FLUSH IV FLUSH SCH ×2 (11:05→21:56)
[2017-05-31] MEDS: APIXABAN 2.5 MG TABLET PO SCH ×2 (11:05→21:55)
--- NOTE | 2017-05-31 11:06 | RADRPT ---
EXAM DATE/TIME: 05/31/2017 09:52 [facility] COMPARISON: No previous studies available for comparison. INDICATIONS : Left arm swelling. MEDICAL HISTORY : CVA. Dementia. Afib. Hypertension. GERD. Anemia. SURGICAL HISTORY : Cholecystectomy. Hysterectomy. Appendectomy. Aortic valve replacement. ENCOUNTER: Initial ACUITY: 1 day PAIN SCORE: Non-responsive LOCATION: Left arm. FINDINGS: There is spontaneous flow documented in the brachial, basilic, cephalic, axillary, and subclavian vei ns. The vessels are compressible and augmentation response is documented. No filling defects are se en. The flow is phasic with respiration. Direction of flow in the jugular vein is caudal. CONCLUSION: Negative for deep venous thrombosis. Maxx Maria MD FACR on May 31, 2017 at 11:04 Board Certified Radiologist. This report was verified electronically.
[2017-05-31] MEDS ORDERED: NITROFURANTOIN MONOHYD MACROCR 100 MG CAP PO SCH (18:00)
[2017-05-31] MEDS: cefTRIAXone INJ 1,000 MG in SODIUM CHLORIDE 0.9% INJ 100 ML IV SCH (18:13)
[2017-05-31] MEDS: MIRTAZAPINE 15 MG TAB PO SCH (21:55)
[2017-05-31] MEDS: ATORVASTATIN 80 MG TAB PO SCH (21:56)
[2017-06-01] VITALS (7 sets, daily range): BP systolic 115–159; BP diastolic 53–71; PULSE 60–61; RESP 16–24; TEMP 97.3–98.3; O2SAT 92–100
[2017-06-01] MEDS: CARVEDILOL 12.5 MG TAB PO SCH ×2 (08:34→22:04)
[2017-06-01] MEDS: SODIUM CHLORIDE 0.9% FLUSH 10 ML FLUSH IV FLUSH SCH ×2 (08:34→22:05)
[2017-06-01] MEDS: APIXABAN 2.5 MG TABLET PO SCH ×2 (08:34→22:04)
[2017-06-01] MEDS: ISOSORBIDE MONONITRATE 20 MG TAB PO SCH (08:35)
[2017-06-01] MEDS: FUROSEMIDE 20 MG TAB PO SCH (08:35)
[2017-06-01] MEDS: SPIRONOLACTONE 25 MG TAB PO SCH (08:36)
[2017-06-01] MEDS: risperiDONE 0.25 MG TAB PO SCH ×2 (08:40→22:04)
[2017-06-01] MEDS: POTASSIUM CHLORIDE 20 MEQ CONTROLLED RELEASE TAB PO SCH (08:40)
--- NOTE | 2017-06-01 10:43 | PD.CARD.PN ---
Subjective Subjective Remarks No CP or SOB, feels fine Objective Medications Current Medications Medications (Trade) Dose Ordered Sig/Linda Route Start Time Stop Time Status Last Admin (NS Flush) 2 ml BID IV FLUSH 05/24/17 21:00 06/01/17 08:34 (NS Flush) 2 ml UNSCH PRN IV FLUSH 05/24/17 14:15 (Tylenol) 500 mg Q4H PRN PO 05/24/17 14:15 05/30/17 16:12 (Ecotrin Ec) 81 mg DAILY PO 05/26/17 09:00 Future Hold 05/28/17 09:11 (Coreg) 25 mg BID PO 05/25/17 21:00 06/01/17 08:34 (Remeron) 15 mg HS PO 05/25/17 21:00 05/31/17 21:55 (Aldactone) 12.5 mg DAILY PO 05/26/17 09:00 06/01/17 08:36 (Lipitor) 80 mg HS PO 05/25/17 21:00 05/31/17 21:56 (Pill Splitter) 1 ea UNSCH PRN OTHER 05/25/17 16:00 (Eliquis) 2.5 mg BID PO 05/25/17 21:00 06/01/17 08:34 (risperDAL) 0.25 mg Q12HR PO 05/27/17 14:00 06/01/17 08:40 (Duoneb Neb) 1 ampule Q6HR NEB PRN NEB 05/28/17 05:00 05/29/17 10:53 (Lasix) 20 mg DAILY PO 05/29/17 09:00 06/01/17 08:35 (KCl) 20 meq DAILY PO 05/31/17 09:00 06/01/17 08:40 (Ismo) 60 mg DAILY PO 05/31/17 09:00 06/01/17 08:35 (Zofran Odt) 4 mg Q6H PRN PO 05/30/17 10:00 05/30/17 12:28 Ceftriaxone Sodium 1000 mg/ Sodium Chloride 100 ml @ 200 mls/hr Q24H IV 05/31/17 18:00 05/31/17 18:13 Vital Signs / I&O Vital Signs Date Time Temp Pulse Resp B/P (MAP) Pulse Ox O2 Delivery O2 Flow Rate FiO2 11/2/17 08:00 97.5 60 20 147/64 (91) 100 Manual Cuff/Auscultation 06/01/17 04:00 98.0 61 22 159/71 (100) 92 06/01/17 00:00 98.0 60 18 141/65 (90) 92 05/31/17 20:00 94 Nasal Cannula 2.00 05/31/17 20:00 97.5 62 18 155/75 (101) 93 05/31/17 17:20 94 Nasal Cannula 2.00 05/31/17 16:00 97.5 60 16 158/70 (99) 94 05/31/17 12:00 97.9 60 16 113/56 (75) 94 I/O 05/31/17 05/31/17 05/31/17 06/01/17 06/01/17 06/01/17 07:00 15:00 23:00 07:00 15:00 23:00 Intake Total 120 ml 457 ml Output Total 350 ml Balance 120 ml 107 ml Intake Oral 120 ml 357 ml IV Total 100 ml Output Urine Total 350 ml Bladder Scan Volume Amount 170 ml 101 ml 101 ml 302 ml 198 ml 302 ml 198 ml # Voids 0 0 2 # Bowel Movements 0 0 3 Physical Exam GENERAL: In NAD SKIN: Warm and dry. HEAD: Normocephalic. EYES: No scleral icterus. No injection or drainage. NECK: Supple, trachea midline. No JVD or lymphadenopathy. CARDIOVASCULAR: Regular rate and rhythm without murmurs, gallops, or rubs. RESPIRATORY: Breath sounds equal bilaterally. No accessory muscle use. GASTROINTESTINAL: Abdomen soft, non-tender, nondistended. MUSCULOSKELETAL: No cyanosis, or edema. Mildly confused Assessment and Plan Problem List: (1) Altered mental status ICD Codes: R41.82 - Altered mental status, unspecified Status: Chronic (2) TIA (transient ischemic attack) ICD Codes: G45.9 - Transient cerebral ischemic attack, unspecified (3) Dementia ICD Codes: F03.90 - Unspecified dementia without behavioral disturbance Status: Chronic (4) Elevated troponin ICD Codes: R74.8 - Abnormal levels of other serum enzymes Assessment and Plan No new cardiac issues; remains stable from cardiac standpoint. No angina or CHF symptoms. No evidence of ACS. Recent echo showed preserved LV systolic function with no wall motion abnormalities. She was evaluated by neurology. Increase activity, PT. Normal pacemaker function, no reprogramming planned at this time. Anticipate discharge/placement soon. Family involved in patient's care. Problem Qualifiers (1) Altered mental status: Qualified Codes: R41.82 - Altered mental status, unspecified (2) Dementia: Umberto Ellis MD Jun 01, 2017 10:43
--- NOTE | 2017-06-01 12:38 | HHI.PR ---
Subjective Remarks Patient is resting comfortably. Very poor appetite. No complaints or problems reported. Objective Vital Signs Date Time Temp Pulse Resp B/P (MAP) Pulse Ox O2 Delivery O2 Flow Rate FiO2 06/01/17 11:30 97.7 61 18 120/53 (75) 92 06/01/17 11:26 Room Air 06/01/17 08:00 97.5 60 20 147/64 (91) 100 Manual Cuff/Auscultation 06/01/17 04:00 98.0 61 22 159/71 (100) 92 06/01/17 00:00 98.0 60 18 141/65 (90) 92 05/31/17 20:00 94 Nasal Cannula 2.00 05/31/17 20:00 97.5 62 18 155/75 (101) 93 05/31/17 17:20 94 Nasal Cannula 2.00 05/31/17 16:00 97.5 60 16 158/70 (99) 94 I/O 05/31/17 05/31/17 05/31/17 06/01/17 06/01/17 06/01/17 07:00 15:00 23:00 07:00 15:00 23:00 Intake Total 120 ml 457 ml Output Total 350 ml Balance 120 ml 107 ml Intake Oral 120 ml 357 ml IV Total 100 ml Output Urine Total 350 ml Bladder Scan Volume Amount 170 ml 101 ml 101 ml 302 ml 198 ml 302 ml 198 ml # Voids 0 0 2 # Bowel Movements 0 0 3 Result Diagram: 05/30/17 0845 05/30/17 0845 Objective Remarks GENERAL: Alert and cooperative. SKIN: Warm and dry. Skin tear left arm HEAD: Normocephalic. EYES: No scleral icterus. No injection or drainage. NECK: Supple, trachea midline. No JVD or lymphadenopathy. CARDIOVASCULAR: Regular rate and rhythm without murmurs, gallops, or rubs. RESPIRATORY: Breath sounds equal bilaterally. No accessory muscle use. GASTROINTESTINAL: Abdomen soft, non-tender, nondistended. MUSCULOSKELETAL: No cyanosis, or edema. BACK: Nontender without obvious deformity. No CVA tenderness. Medications and IVs Current Medications Medications (Trade) Dose Ordered Sig/Linda Route Start Time Stop Time Status Last Admin (NS Flush) 2 ml BID IV FLUSH 05/24/17 21:00 06/01/17 08:34 (NS Flush) 2 ml UNSCH PRN IV FLUSH 05/24/17 14:15 (Tylenol) 500 mg Q4H PRN PO 05/24/17 14:15 05/30/17 16:12 (Ecotrin Ec) 81 mg DAILY PO 05/26/17 09:00 Future Hold 05/28/17 09:11 (Coreg) 25 mg BID PO 05/25/17 21:00 06/01/17 08:34 (Remeron) 15 mg HS PO 05/25/17 21:00 05/31/17 21:55 (Aldactone) 12.5 mg DAILY PO 05/26/17 09:00 06/01/17 08:36 (Lipitor) 80 mg HS PO 05/25/17 21:00 05/31/17 21:56 (Pill Splitter) 1 ea UNSCH PRN OTHER 05/25/17 16:00 (Eliquis) 2.5 mg BID PO 05/25/17 21:00 06/01/17 08:34 (risperDAL) 0.25 mg Q12HR PO 05/27/17 14:00 06/01/17 08:40 (Duoneb Neb) 1 ampule Q6HR NEB PRN NEB 05/28/17 05:00 05/29/17 10:53 (Lasix) 20 mg DAILY PO 05/29/17 09:00 06/01/17 08:35 (KCl) 20 meq DAILY PO 05/31/17 09:00 06/01/17 08:40 (Ismo) 60 mg DAILY PO 05/31/17 09:00 06/01/17 08:35 (Zofran Odt) 4 mg Q6H PRN PO 05/30/17 10:00 05/30/17 12:28 Ceftriaxone Sodium 1000 mg/ Sodium Chloride 100 ml @ 200 mls/hr Q24H IV 05/31/17 18:00 05/31/17 18:13 Assessment and Plan Problem List: (1) HLD (hyperlipidemia) ICD Codes: E78.5 - Hyperlipidemia, unspecified (2) HTN (hypertension) ICD Codes: I10 - Essential (primary) hypertension (3) Altered mental status ICD Codes: R41.82 - Altered mental status, unspecified Status: Chronic (4) Elevated troponin ICD Codes: R74.8 - Abnormal levels of other serum enzymes (5) Dementia ICD Codes: F03.90 - Unspecified dementia without behavioral disturbance Status: Chronic (6) TIA (transient ischemic attack) ICD Codes: G45.9 - Transient cerebral ischemic attack, unspecified Assessment and Plan 05/25/17 AMS: Patient with mild confusion. Neurology consulted. No acute findings noted thus far. EEG and MRI ordered. Speech is delayed. PT and OT ordered HX CVA: On statin and ASA HLD: Continue Statin HTN: home medication continued. Positive trop: mildly elevated at 0.09. Cardiology consulted and ECHO pending \Labs in AM 05/26/17 AMS: MRI with small acute ischemic events, left occipital and caudate. Neurology managing. On ASA and eliquis. Patient with increased confusion this morning. Allergy list needs to put be added order written for nursing will add medication for agitation once added. EEG: Abnormal EEG due to mild moderate slowing consistent with encephalopathic process. No findings to suggest seizure or seizure focus . Urinary retention: Per nursing patient has not urinated. Order to put medina back in and obtain UA Skin tear: Patient pulled IV out on left arm and skin tear obtained. wound care ordered. Labs pending this AM 05/27/17 Acute CVA; Neurology consulted. On ASA, eliquis, and statin. Patient is confused and gets agitated at times. Will add Risperdal BID and monitor. On telemetry but with confusion patient is constantly pulling. No abnormalities noted on telemetry. Urinary retention: medina placed and monitoring. Will add flomax and remove medina in AM. UA is negative HTN; well controlled on current regimen 05/28/17 Acute CVA; neurology consulted. On ASA, eliquis, and statin. ASA put on hold for thrombocytopenia. 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 Patient mental status is continuing to decline. Per nursing has had a poor appetite and sleeping most of day. Son at bedside. Patient wakes up to commands and answers questions and goes back to sleep. O2 2 liters at 96 % but will obtain blood gas to look for elevated CO2 levels. Patient is a do not intubate SOB: Last night per nursing SOB reported. Breathing treatments ordered and chest Xray this AM. On o2 2 liters with good sats. Chest Xray demonstrating moderate bilateral pulmonary edema. UOP at 450. Discussed with Dr. Patino pending ABG will order IVF since patient has minimal PO intake and gentle diuresis with pulmonary edema noted. Will obtain cbc, BMP, and BNP in AM code status is compressions and shock only discussed with son and he will be talking to family and possibly changing to full code. 05/30/17 Acute CVA: Neurology consulted and managing. Discussed with neurology. On Eliquis with ASA on home with thrombocytopenia. Hematology consulted for recommendations. Alert and cooperative today. Will discontinue IVF's. Hypokalmeia: Potassium 3.1 will add replacement Urinary retention: Will remove medina and monitor for retention. HTN: blood pressure elevated t 162/82 will increase isosorbide. 05/31/17 Acute CVA: Alert and cooperative today. Cleared neuro mg for discharge. Hematology consulted for recommendations for anticaigulation Left arm swelling: US ordered to r/o DVT Urinary retention: Medina removed last night at 12:30 bladder scanned this morning for only 170cc. Will repeat bladder scan if no urinary out put in 4 hours. Fluids encouraged. HTN: continue current therapy. 06/01/17 Acute CVA: Alert and cooperative. Very poor appetite on Remeron nightly. On eliquis and asa added per recommendations of hematology. Will monitor platelets. Discussed with Dr. Patino and PPN is ordered. UTI; On rocephin and culture is sensitive. HTN: Well controlled. PT/OT GI prophylaxis I and the APARTMENT MAINTENANCE WORKER have both examined this patient and reviewed this note and I agree with these findings and plan of care. Kenyon Patino DO Discharge Planning SNF Problem Qualifiers (1) HTN (hypertension): Qualified Codes: I10 - Essential (primary) hypertension (2) Altered mental status: Qualified Codes: R41.82 - Altered mental status, unspecified (3) Dementia: Ambreen Lyon APARTMENT MAINTENANCE WORKER Jun 01, 2017 12:38
[2017-06-01 13:10] LABS: MEAN CORPUSCULAR HEMOGLOBIN 32.6 PG (27.0-34.0); MEAN CORPUSCULAR HGB CONC 34.7 % (32.0-36.0); PLATELET COUNT 49 TH/MM3 (150-450); RED BLOOD COUNT 2.88 MIL/MM3 (4.00-5.30); RED CELL DISTRIBUTION WIDTH 16.6 % (11.6-17.2); WHITE BLOOD COUNT 9.3 TH/MM3 (4.0-11.0)
[2017-06-01 13:21] LABS: BICARBONATE 29.6 MEQ/L (21.0-32.0); POTASSIUM 3.4 MEQ/L (3.5-5.1)
[2017-06-01 13:44] LABS: CALCIUM-PROTEIN CORRECTED 8.5 MG/DL (8.5-10.1)
[2017-06-01] MEDS: cefTRIAXone INJ 1,000 MG in SODIUM CHLORIDE 0.9% INJ 100 ML IV SCH (17:15)
[2017-06-01] MEDS: FAT EMULSION 20% INJ 250 ML (@10 mls/hr) IV SCH (22:03)
[2017-06-01] MEDS: MIRTAZAPINE 15 MG TAB PO SCH (22:03)
[2017-06-01] MEDS: CLINIMIX E 4.25/5 1000 mL- </= 42 mls/hr IV SCH ×3 (22:03)
[2017-06-01] MEDS: FAMOTIDINE 20 MG TAB PO SCH (22:04)
[2017-06-01] MEDS: NITROFURANTOIN MONOHYD MACROCR 100 MG CAP PO SCH (22:04)
[2017-06-01] MEDS: ATORVASTATIN 80 MG TAB PO SCH (22:04)
[2017-06-02] VITALS (7 sets, daily range): BP systolic 111–139; BP diastolic 54–65; PULSE 59–63; RESP 20; TEMP 97.3–98.7; O2SAT 95–100
--- NOTE | 2017-06-02 07:48 | HHI.PR ---
Subjective Remarks Patient is resting comfortably. Continues to have very poor appetite. Megace added yesterday. Objective Vital Signs Date Time Temp Pulse Resp B/P (MAP) Pulse Ox O2 Delivery O2 Flow Rate FiO2 06/02/17 04:00 97.3 61 20 134/59 (84) 95 06/02/17 04:00 Room Air 06/02/17 00:00 Room Air 06/02/17 00:00 98.6 59 20 111/54 (73) 98 06/01/17 22:22 97 21 06/01/17 20:00 Room Air 06/01/17 20:00 98.3 61 24 123/63 (83) 96 06/01/17 16:00 97.3 61 16 115/67 (83) 100 06/01/17 11:30 97.7 61 18 120/53 (75) 92 06/01/17 11:26 Room Air 06/01/17 08:00 97.5 60 20 147/64 (91) 100 Manual Cuff/Auscultation I/O 06/01/17 06/01/17 06/01/17 06/02/17 06/02/17 06/02/17 07:00 15:00 23:00 07:00 15:00 23:00 Intake Total 457 ml Output Total 350 ml Balance 107 ml Intake Oral 357 ml IV Total 100 ml Output Urine Total 350 ml Bladder Scan Volume Amount 302 ml 302 ml 436 ml 302 ml # Voids 2 # Bowel Movements 3 Result Diagram: 06/01/17 1235 06/01/17 1235 Imaging Last 72 hours Impressions Upper Extremity Ultrasound 05/31/17 0000 Signed Impressions: Service Date/Time: Wednesday, May 31, 2017 09:52 - CONCLUSION: Negative for deep venous thrombosis. Maxx Maria MD FACR Objective Remarks GENERAL: Alert and cooperative. SKIN: Warm and dry. Skin tear left arm HEAD: Normocephalic. EYES: No scleral icterus. No injection or drainage. NECK: Supple, trachea midline. No JVD or lymphadenopathy. CARDIOVASCULAR: Regular rate and rhythm without murmurs, gallops, or rubs. RESPIRATORY: Breath sounds equal bilaterally. No accessory muscle use. GASTROINTESTINAL: Abdomen soft, non-tender, nondistended. MUSCULOSKELETAL: No cyanosis, or edema. BACK: Nontender without obvious deformity. No CVA tenderness. Medications and IVs Current Medications Medications (Trade) Dose Ordered Sig/Linda Route Start Time Stop Time Status Last Admin (NS Flush) 2 ml BID IV FLUSH 05/24/17 21:00 06/01/17 22:05 (NS Flush) 2 ml UNSCH PRN IV FLUSH 05/24/17 14:15 (Tylenol) 500 mg Q4H PRN PO 05/24/17 14:15 05/30/17 16:12 (Ecotrin Ec) 81 mg DAILY PO 05/26/17 09:00 Future hold 05/28/17 09:11 (Coreg) 25 mg BID PO 05/25/17 21:00 06/01/17 22:04 (Remeron) 15 mg HS PO 05/25/17 21:00 06/01/17 22:03 (Aldactone) 12.5 mg DAILY PO 05/26/17 09:00 06/01/17 08:36 (Lipitor) 80 mg HS PO 05/25/17 21:00 06/01/17 22:04 (Pill Splitter) 1 ea UNSCH PRN OTHER 05/25/17 16:00 (Eliquis) 2.5 mg BID PO 05/25/17 21:00 06/01/17 22:04 (risperDAL) 0.25 mg Q12HR PO 05/27/17 14:00 06/01/17 22:04 (Duoneb Neb) 1 ampule Q6HR NEB PRN NEB 05/28/17 05:00 05/29/17 10:53 (Lasix) 20 mg DAILY PO 05/29/17 09:00 06/01/17 08:35 (KCl) 20 meq DAILY PO 05/31/17 09:00 06/01/17 08:40 (Ismo) 60 mg DAILY PO 05/31/17 09:00 06/01/17 08:35 (Zofran Odt) 4 mg Q6H PRN PO 05/30/17 10:00 05/30/17 12:28 (Pepcid) 20 mg BID PO 06/01/17 21:00 06/01/17 22:04 Multivitamins 10 ml/Folic Acid 1 mg/Amino Acids/ Electrolytes/ Dextrose 1,010.2 ml @ 42 mls/hr Q24H IV 06/01/17 20:00 06/01/17 22:03 Fat Emulsion Intravenous 250 ml @ 10 mls/hr Q24H IV 06/01/17 20:00 06/01/17 22:03 (Megace Liq) 800 mg DAILY PO 06/02/17 09:00 (Macrobid) 100 mg BIDPC PO 06/01/17 18:00 06/01/17 22:04 Assessment and Plan Problem List: (1) HLD (hyperlipidemia) ICD Codes: E78.5 - Hyperlipidemia, unspecified (2) HTN (hypertension) ICD Codes: I10 - Essential (primary) hypertension (3) Altered mental status ICD Codes: R41.82 - Altered mental status, unspecified Status: Chronic (4) Elevated troponin ICD Codes: R74.8 - Abnormal levels of other serum enzymes (5) Dementia ICD Codes: F03.90 - Unspecified dementia without behavioral disturbance Status: Chronic (6) TIA (transient ischemic attack) ICD Codes: G45.9 - Transient cerebral ischemic attack, unspecified Assessment and Plan 05/25/17 AMS: Patient with mild confusion. Neurology consulted. No acute findings noted thus far. EEG and MRI ordered. Speech is delayed. PT and OT ordered HX CVA: On statin and ASA HLD: Continue Statin HTN: home medication continued. Positive trop: mildly elevated at 0.09. Cardiology consulted and ECHO pending \Labs in AM 05/26/17 AMS: MRI with small acute ischemic events, left occipital and caudate. Neurology managing. On ASA and eliquis. Patient with increased confusion this morning. Allergy list needs to put be added order written for nursing will add medication for agitation once added. EEG: Abnormal EEG due to mild moderate slowing consistent with encephalopathic process. No findings to suggest seizure or seizure focus . Urinary retention: Per nursing patient has not urinated. Order to put medina back in and obtain UA Skin tear: Patient pulled IV out on left arm and skin tear obtained. wound care ordered. Labs pending this AM 05/27/17 Acute CVA; Neurology consulted. On ASA, eliquis, and statin. Patient is confused and gets agitated at times. Will add Risperdal BID and monitor. On telemetry but with confusion patient is constantly pulling. No abnormalities noted on telemetry. Urinary retention: medina placed and monitoring. Will add flomax and remove medina in AM. UA is negative HTN; well controlled on current regimen 05/28/17 Acute CVA; neurology consulted. On ASA, eliquis, and statin. ASA put on hold for thrombocytopenia. 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 Patient mental status is continuing to decline. Per nursing has had a poor appetite and sleeping most of day. Son at bedside. Patient wakes up to commands and answers questions and goes back to sleep. O2 2 liters at 96 % but will obtain blood gas to look for elevated CO2 levels. Patient is a do not intubate SOB: Last night per nursing SOB reported. Breathing treatments ordered and chest Xray this AM. On o2 2 liters with good sats. Chest Xray demonstrating moderate bilateral pulmonary edema. UOP at 450. Discuss[address] with Dr[address] Patino pending ABG will order IVF since patient has minimal PO intake and gentle diuresis with pulmonary edema noted. Will obtain cbc, BMP, and BNP in AM code status is compressions and shock only discussed with son and he will be talking to family and possibly changing to full code. 05/30/17 Acute CVA: Neurology consulted and managing. Discussed with neurology. On Eliquis with ASA on home with thrombocytopenia. Hematology consulted for recommendations. Alert and cooperative today. Will discontinue IVF's. Hypokalmeia: Potassium 3.1 will add replacement Urinary retention: Will remove medina and monitor for retention. HTN: blood pressure elevated t 162/82 will increase isosorbide. 05/31/17 Acute CVA: Alert and cooperative today. Cleared neuro mg for discharge. Hematology consulted for recommendations for anticaigulation Left arm swelling: US ordered to r/o DVT Urinary retention: Medina removed last night at 12:30 bladder scanned this morning for only 170cc. Will repeat bladder scan if no urinary out put in 4 hours. Fluids encouraged. HTN: continue current therapy. 06/01/17 Acute CVA: Alert and cooperative. Very poor appetite on Remeron nightly. On eliquis and asa added per recommendations of hematology. Will monitor platelets. Discussed with Dr. Patino and PPN is ordered. UTI; On rocephin and culture is sensitive. HTN: Well controlled. PT/OT GI prophylaxis 06/02/17 Poor appetite: Patient continues to have poor appetite. On Remeron and Megace added yesterday. PPN started yesterday. UTI: IV rocephin changed to macrobid with stop date of the 7th Urinary retention: Medina removed and patient has needed to I+O cath for 2 days. Will reinsert Medina and add Flomax and reattempt to remove at later date. Labs are pending /I and the STEEL SHOT HEADER OPERATOR have both examined this patient and reviewed this note and I agree with these findings and plan of care. Kenyon Patino DO / Discussed Condition With Nursing Problem Qualifiers (1) HTN (hypertension): Qualified Codes: I10 - Essential (primary) hypertension (2) Altered mental status: Qualified Codes: R41.82 - Altered mental status, unspecified (3) Dementia: Ambreen Lyon [facility] Jun 02, 2017 07:48
[2017-06-02] MEDS: SODIUM CHLORIDE 0.9% FLUSH 10 ML FLUSH IV FLUSH SCH ×2 (09:00→21:17)
--- NOTE | 2017-06-02 09:47 | PD.CARD.PN ---
Subjective Subjective Remarks No CP or SOB, no c/o Objective Medications Current Medications Medications (Trade) Dose Ordered Sig/Linda Route Start Time Stop Time Status Last Admin (NS Flush) 2 ml BID IV FLUSH 05/24/17 21:00 06/01/17 22:05 (NS Flush) 2 ml UNSCH PRN IV FLUSH 05/24/17 14:15 (Tylenol) 500 mg Q4H PRN PO 05/24/17 14:15 05/30/17 16:12 (Ecotrin Ec) 81 mg DAILY PO 05/26/17 09:00 Future hold 05/28/17 09:11 (Coreg) 25 mg BID PO 05/25/17 21:00 06/01/17 22:04 (Remeron) 15 mg HS PO 05/25/17 21:00 06/01/17 22:03 (Aldactone) 12.5 mg DAILY PO 05/26/17 09:00 06/01/17 08:36 (Lipitor) 80 mg HS PO 05/25/17 21:00 06/01/17 22:04 (Pill Splitter) 1 ea UNSCH PRN OTHER 05/25/17 16:00 (Eliquis) 2.5 mg BID PO 05/25/17 21:00 06/01/17 22:04 (risperDAL) 0.25 mg Q12HR PO 05/27/17 14:00 06/01/17 22:04 (Duoneb Neb) 1 ampule Q6HR NEB PRN NEB 05/28/17 05:00 05/29/17 10:53 (Lasix) 20 mg DAILY PO 05/29/17 09:00 06/01/17 08:35 (KCl) 20 meq DAILY PO 05/31/17 09:00 06/01/17 08:40 (Ismo) 60 mg DAILY PO 05/31/17 09:00 06/01/17 08:35 (Zofran Odt) 4 mg Q6H PRN PO 05/30/17 10:00 05/30/17 12:28 (Pepcid) 20 mg BID PO 06/01/17 21:00 06/01/17 22:04 Multivitamins 10 ml/Folic Acid 1 mg/Amino Acids/ Electrolytes/ Dextrose 1,010.2 ml @ 42 mls/hr Q24H IV 06/01/17 20:00 06/01/17 22:03 Fat Emulsion Intravenous 250 ml @ 10 mls/hr Q24H IV 06/01/17 20:00 06/01/17 22:03 (Megace Liq) 800 mg DAILY PO 06/02/17 09:00 (Macrobid) 100 mg BIDPC PO 06/01/17 18:00 06/06/17 21:00 06/01/17 22:04 (Flomax) 0.4 mg DAILY PO 06/02/17 09:00 Vital Signs / I&O Vital Signs Date Time Temp Pulse Resp B/P (MAP) Pulse Ox O2 Delivery O2 Flow Rate FiO2 06/02/17 04:00 97.3 61 20 134/59 (84) 95 06/02/17 04:00 Room Air 06/02/17 00:00 Room Air 06/02/17 00:00 98.6 59 20 111/54 (73) 98 06/01/17 22:22 97 21 06/01/17 20:00 Room Air 06/01/17 20:00 98.3 61 24 123/63 (83) 96 06/01/17 16:00 97.3 61 16 115/67 (83) 100 06/01/17 11:30 97.7 61 18 120/53 (75) 92 06/01/17 11:26 Room Air I/O 06/01/17 06/01/17 06/01/17 06/02/17 06/02/17 06/02/17 07:00 15:00 23:00 07:00 15:00 23:00 Intake Total 457 ml Output Total 350 ml Balance 107 ml Intake Oral 357 ml IV Total 100 ml Output Urine Total 350 ml Bladder Scan Volume Amount 302 ml 302 ml 436 ml 302 ml # Voids 2 # Bowel Movements 3 Physical Exam GENERAL: In NAD SKIN: Warm and dry. HEAD: Normocephalic. EYES: No scleral icterus. No injection or drainage. NECK: Supple, trachea midline. No JVD or lymphadenopathy. CARDIOVASCULAR: Regular rate and rhythm without murmurs, gallops, or rubs. RESPIRATORY: Breath sounds equal bilaterally. No accessory muscle use. GASTROINTESTINAL: Abdomen soft, non-tender, nondistended. MUSCULOSKELETAL: No cyanosis, or edema. Mildly confused Laboratory Laboratory Tests Test 06/01/17 12:35 White Blood Count 9.3 TH/MM3 Red Blood Count 2.88 MIL/MM3 Hemoglobin 9.4 GM/DL Hematocrit 27.0 % Mean Corpuscular Volume 94.0 FL Mean Corpuscular Hemoglobin 32.6 PG Mean Corpuscular Hemoglobin Concent 34.7 % Red Cell Distribution Width 16.6 % Platelet Count 49 TH/MM3 Mean Platelet Volume 11.0 FL Blood Urea Nitrogen 17 MG/DL Creatinine 0.66 MG/DL Random Glucose 122 MG/DL Total Protein 5.1 GM/DL Calcium Level 7.4 MG/DL Sodium Level 141 MEQ/L Potassium Level 3.4 MEQ/L Chloride Level 102 MEQ/L Carbon Dioxide Level 29.6 MEQ/L Anion Gap 9 MEQ/L Estimat Glomerular Filtration Rate 86 ML/MIN Protein Corrected Calcium 8.5 MG/DL Assessment and Plan Problem List: (1) Altered mental status ICD Codes: R41.82 - Altered mental status, unspecified Status: Chronic (2) TIA (transient ischemic attack) ICD Codes: G45.9 - Transient cerebral ischemic attack, unspecified (3) Dementia ICD Codes: F03.90 - Unspecified dementia without behavioral disturbance Status: Chronic (4) Elevated troponin ICD Codes: R74.8 - Abnormal levels of other serum enzymes Assessment and Plan No angina or CHF symptoms, remains stable. Recent echo showed preserved LV systolic function with no wall motion abnormalities, no evidence of ACS. Increase activity, PT. Normal pacemaker function, no need for reprogramming at this time. Anticipate discharge/placement soon. Problem Qualifiers (1) Altered mental status: Qualified Codes: R41.82 - Altered mental status, unspecified (2) Dementia: Umberto Ellis MD Jun 02, 2017 09:47
[2017-06-02] MEDS: NITROFURANTOIN MONOHYD MACROCR 100 MG CAP PO SCH ×2 (10:02→18:00)
[2017-06-02] MEDS: MEGESTROL ACETATE SUSP 400 MG/10 ML CUP PO SCH (10:03)
[2017-06-02] MEDS: FUROSEMIDE 20 MG TAB PO SCH (10:03)
[2017-06-02] MEDS: APIXABAN 2.5 MG TABLET PO SCH ×2 (10:03→21:18)
[2017-06-02] MEDS: risperiDONE 0.25 MG TAB PO SCH ×2 (10:03→21:18)
[2017-06-02] MEDS: FAMOTIDINE 20 MG TAB PO SCH ×2 (10:03→21:18)
[2017-06-02] MEDS: CARVEDILOL 12.5 MG TAB PO SCH ×2 (10:03→21:18)
[2017-06-02] MEDS: ASPIRIN EC 81 MG TABEC PO SCH (10:04)
[2017-06-02] MEDS: SPIRONOLACTONE 25 MG TAB PO SCH (10:04)
[2017-06-02] MEDS: POTASSIUM CHLORIDE 20 MEQ CONTROLLED RELEASE TAB PO SCH (10:05)
[2017-06-02] MEDS: TAMSULOSIN HCL 0.4 MG CAP PO SCH (10:05)
[2017-06-02] MEDS: ISOSORBIDE MONONITRATE 20 MG TAB PO SCH (10:05)
--- NOTE | 2017-06-02 20:52 | PD.ONC.PN ---
Subjective Subjective Remarks Patient was seen and examined, vital signs reviewed, medications were reviewed as well. She is awake, alert to person but not place and time. She tells me she is not in pain, she denies difficulty breathing and reports she has been able to eat. She tells me she has not been able to get up out of bed. Labs were reviewed, no CBC ordered today. I did transition her from ceftriaxone to nitrofurantoin yesterday on account of her progressive thrombocytopenia. Additionally I spoke at length to her son Vini yesterday he is a housekeeping assistant in [place] and is the patient's health care surrogate. The patient's son reported a precipitous decline in the patient's mentation secondary to a progression in her dementia over the past 2 months. He reports over this time the patient has fallen multiple times and recently fractured her right fibula. He reports about a year ago she required her aortic valve replaced; she underwent a TAVR procedure at the [facility]. She has a pacemaker in place as well. He reports the patient has a remote history of breast carcinoma which is early stage, he reports she also has a history of long-standing thrombocytopenia with platelet counts chronically between 65 and 80,000. The patient had an fact undergone a bone marrow biopsy of [facility] some months ago for evaluation of myelodysplastic syndrome. The patient's primary oncologist is Dr. Krysten Toure in [place]. We spoke at length about the patient's thrombocytopenia, indication for continuing anticoagulation i.e. a prosthetic aortic valve and cardiac arrhythmia as well as recurrent strokes. Objective Data Date Time Temp Pulse Resp B/P (MAP) Pulse Ox O2 Delivery O2 Flow Rate FiO2 06/02/17 16:00 98.7 60 20 133/63 (86) 100 06/02/17 12:00 97.8 63 20 116/56 (76) 100 06/02/17 08:15 Nasal Cannula 2.00 06/02/17 08:00 98.2 60 20 139/63 (88) 100 06/02/17 04:00 97.3 61 20 134/59 (84) 95 06/02/17 04:00 Room Air 06/02/17 00:00 Room Air 06/02/17 00:00 98.6 59 20 111/54 (73) 98 06/01/17 22:22 97 21 11/10/1406/02/17 06/02/17 07:00 15:00 23:00 Intake Total 1050 ml Output Total 200 ml Balance 850 ml Result Diagram: 06/01/17 1235 06/01/17 1235 Administered Medications Medications (Trade) Dose Ordered Sig/Linda Route PRN Reason Start Time Stop Time Status Last Admin Dose Admin Sodium Chloride (NS Flush) 2 ml BID IV FLUSH 05/24/17 21:00 06/01/17 22:05 Acetaminophen (Tylenol) 500 mg Q4H PRN PO HEADACHE 05/24/17 14:15 05/30/17 16:12 Aspirin (Ecotrin Ec) 81 mg DAILY PO 05/26/17 09:00 Future hold 06/02/17 10:04 Carvedilol (Coreg) 25 mg BID PO 05/25/17 21:00 06/02/17 10:03 Mirtazapine (Remeron) 15 mg HS PO 05/25/17 21:00 06/01/17 22:03 Spironolactone (Aldactone) 12.5 mg DAILY PO 05/26/17 09:00 06/02/17 10:04 Atorvastatin Calcium (Lipitor) 80 mg HS PO 05/25/17 21:00 06/01/17 22:04 Apixaban (Eliquis) 2.5 mg BID PO 05/25/17 21:00 06/02/17 10:03 Risperidone (risperDAL) 0.25 mg Q12HR PO 05/27/17 14:00 06/02/17 10:03 Albuterol/ Ipratropium (Duoneb Neb) 1 ampule Q6HR NEB PRN NEB dyspnea 05/28/17 05:00 05/29/17 10:53 Furosemide (Lasix) 20 mg DAILY PO 05/29/17 09:00 06/02/17 10:03 Potassium Chloride (KCl) 20 meq DAILY PO 05/31/17 09:00 06/02/17 10:05 Isosorbide Mononitrate (Ismo) 60 mg DAILY PO 05/31/17 09:00 06/02/17 10:05 Ondansetron HCl (Zofran Odt) 4 mg Q6H PRN PO nausea 05/30/17 10:00 05/30/17 12:28 Famotidine (Pepcid) 20 mg BID PO 06/01/17 21:00 06/02/17 10:03 Multivitamins 10 ml/Folic Acid 1 mg/Amino Acids/ Electrolytes/ Dextrose 1,010.2 ml @ 42 mls/hr Q24H IV 06/01/17 20:00 06/01/17 22:03 Fat Emulsion Intravenous 250 ml @ 10 mls/hr Q24H IV 06/01/17 20:00 06/01/17 22:03 Megestrol Acetate (Megace Liq) 800 mg DAILY PO 06/02/17 09:00 06/02/17 10:03 Nitrofurantoin Macrocrystals (Macrobid) 100 mg BIDPC PO 06/01/17 18:00 06/06/17 21:00 06/02/17 18:00 Tamsulosin HCl (Flomax) 0.4 mg DAILY PO 06/02/17 09:00 06/02/17 10:05 Objective Remarks GENERAL PHYSICAL APPEARANCE: Ms. Mays is an elderly lady. She is laying in bed. She appears to be in no acute distress. She is oriented to person but not so much to place or time or situation. HEENT: Head atraumatic, normocephalic. Conjunctivae are mildly pale, sclerae are anicteric. EOMI, PERRLA. Oral exam - no pharyngeal erythema. NECK EXAM: No palpable cervical or supraclavicular lymphadenopathy. RESPIRATORY EXAM: Good air movement bilaterally. No added breath sounds. CARDIOVASCULAR EXAM: Regular rate and rhythm. S1, S2. No obvious murmurs, rubs or gallops. ABDOMINAL EXAM: Protuberant, soft. No obvious tenderness. No palpable organ enlargement. LOWER EXTREMITIES: No pretibial edema or calf tenderness. UPPER EXTREMITIES: Left upper extremity edema is noted. Assessment/Plan Assessment Ms. Mays is an 81-year-old female whom I have been asked to see for further workup and management of what appears to be a chronic thrombocytopenia. The patient has a history of dementia secondary to small vessel ischemic changes involving the brain; her MRI of the brain shows marked changes related to ischemia and encephalomalacia. She also has a history of cardiac arrhythmia for which a pacemaker was placed in March of 2016. She recently fractured her right leg with a tib-fib fracture which is being managed conservatively. I have been asked to see this patient to help further workup with thrombocytopenia and to help sort out and address the competing issues which include the indications for anticoagulation in an individual with cardiac arrhythmia, recurrent strokes and a prosthetic aortic valve. However, she is somebody who is at high risk for recurrent falls and has thrombocytopenia, both of which increase the risk of bleeding. The chronicity of her thrombocytopenia seems to be documented in our EMR and seems to date back at least to 2004. It appears that the thrombocytopenia is significantly worse now than it was 12 years ago. Plan 1. Thrombocytopenia: Chronic but now exacerbated below baseline. She has apparently undergone a bone marrow biopsy at [facility] some months ago to rule out myelodysplastic syndrome. The patient's son reports the bone marrow biopsy revealed no evidence of MDS. It would be helpful for us to obtain those medical records at some point for documentation purposes. I did eliminate ceftriaxone from her medication list and transition her to nitrofurantoin for management of a urinary tract infection. Repeat CBCs been ordered for tomorrow morning. Indication for anticoagulation: The patient has extensive ischemic changes in the brain as evidenced by her MRI earlier this hospitalization. She has vascular dementia and as a result is essentially bedbound. The patient's son reports a profound progression in her dementia over the past with 3 months. In this is corresponded to a precipitous decline in her performance status and functionality. She does have underlying cardiac arrhythmia and has a pacemaker, she also has a prosthetic aortic valve which was placed at the [facility] in the fall of 2016. It is not known whether she has a bioprosthetic valve or a mechanical valve. Should she have a mechanical valve that valve will be extremely thrombogenic and full therapeutic anticoagulation is typically recommended given the high risk of embolic strokes. I would not be surprised if the patient has an actual mechanical valve given the showering of ischemic strokes on the MRI. She is presently on anticoagulation with Eliquis and I would continue this at the present dose. Monitor PLT count. Consider palliative care to evaluate the patient to discuss goals of care given her continued clinical decline. I am not certain given the appearance of her MRI of the brain if her functional status will improve. Mikael Vargas MD Jun 02, 2017 20:52
[2017-06-02] MEDS: CLINIMIX E 4.25/5 1000 mL- </= 42 mls/hr IV SCH ×3 (21:17)
[2017-06-02] MEDS: FAT EMULSION 20% INJ 250 ML (@10 mls/hr) IV SCH (21:17)
[2017-06-02] MEDS: ATORVASTATIN 80 MG TAB PO SCH (21:18)
[2017-06-02] MEDS: MIRTAZAPINE 15 MG TAB PO SCH (21:18)
[2017-06-03] VITALS (7 sets, daily range): BP systolic 130–161; BP diastolic 58–71; PULSE 60–64; RESP 18–22; TEMP 97.7–98.5; O2SAT 97–100
[2017-06-03 07:58] LABS: AUTOMATED NEUTROPHIL # 9.7 TH/MM3 (1.8-7.7); BASOPHIL % 0.2 % (0.0-2.0); EOSINOPHIL # 0.2 TH/MM3 (0-0.4); HEMATOCRIT 29.1 % (35.0-46.0); LYMPH % 5.7 % (9.0-44.0); LYMPHOCYTE # 0.7 TH/MM3 (1.0-4.8); MEAN CELL VOLUME 94.7 FL (80.0-100.0); MEAN CORPUSCULAR HGB CONC 33.8 % (32.0-36.0); MONO % 7.6 % (0.0-8.0); NEUT % 84.5 % (16.0-70.0); PLATELET COUNT 43 TH/MM3 (150-450); RED BLOOD COUNT 3.08 MIL/MM3 (4.00-5.30); RED CELL DISTRIBUTION WIDTH 16.4 % (11.6-17.2); WHITE BLOOD COUNT 11.5 TH/MM3 (4.0-11.0)
[2017-06-03 08:09] LABS: HEMO FLAGS AUTO DIFF
[2017-06-03 09:52] LABS: ACANTHOCYTES OCC (NORMAL); PLATELET ESTIMATE SMEAR LOW (NORMAL); PLATELET MORPHOLOGY NORMAL (NORMAL); SCAN/DIFF AUTO DIFF CONFIRMED
--- NOTE | 2017-06-03 10:00 | HHI.PR ---
Subjective Remarks alert this am no new co Objective Vital Signs Date Time Temp Pulse Resp B/P (MAP) Pulse Ox O2 Delivery O2 Flow Rate FiO2 06/03/17 08:00 98.5 60 18 136/71 (92) 97 06/03/17 04:00 Nasal Cannula 2.00 06/03/17 04:00 98.3 60 22 161/68 (99) 99 06/03/17 00:00 Nasal Cannula 2.00 06/03/17 00:00 97.7 60 19 136/61 (86) 100 06/02/17 20:51 95 Nasal Cannula 2.00 06/02/17 20:00 Nasal Cannula 2.00 06/02/17 20:00 98.7 60 20 139/65 (89) 100 06/02/17 16:00 98.7 60 20 133/63 (86) 100 06/02/17 12:00 97.8 63 20 116/56 (76) 100 I/O 06/02/17 06/02/17 06/02/17 06/03/17 06/03/17 06/03/17 07:00 15:00 23:00 07:00 15:00 23:00 Intake Total 1050 ml 0 ml Output Total 200 ml 350 ml Balance 850 ml -350 ml Intake Oral 0 ml 0 ml TPN/PPN 851 ml Lipid 199 ml Output Urine Total 200 ml 350 ml Bladder Scan Volume Amount 436 ml 436 ml Result Diagram: 06/03/17 0724 06/01/17 1235 Objective Remarks GENERAL: Well-nourished, well-developed patient. SKIN: Warm and dry. HEAD: Normocephalic. EYES: No scleral icterus. No injection or drainage. NECK: Supple, trachea midline. No JVD or lymphadenopathy. CARDIOVASCULAR: Regular rate and rhythm without murmurs, gallops, or rubs. RESPIRATORY: Breath sounds equal bilaterally. No accessory muscle use. GASTROINTESTINAL: Abdomen soft, non-tender, nondistended. EXTREMITIES: No cyanosis, or edema. NEUROLOGICAL: Awake, alert, . Non-focal. Medications and IVs Inpatient Medications Acetaminophen (Tylenol) 500 mg Q4H PRN PO HEADACHE Last administered on t 16:12; Start 05/24/17 at 14:15 Albuterol/ Ipratropium (Duoneb Neb) 1 ampule Q6HR NEB PRN NEB dyspnea Last administered on 05/29/17 10:53; Start 05/28/17 at 05:00 Apixaban (Eliquis) 2.5 mg BID PO Last administered on 06/02/17 21:18; Start 05/25/17 at 21:00 Aspirin (Ecotrin Ec) 81 mg DAILY PO Last administered on 06/02/17 10:04; Start 05/26/17 at 09:00; Status Future hold Atorvastatin Calcium (Lipitor) 80 mg HS PO Last administered on 06/02/17 21:18 ; Start 05/25/17 at 21:00 Carvedilol (Coreg) 25 mg BID PO Last administered on 06/02/17 21:18; Start at 21:00 Ceftriaxone Sodium 1000 mg/ Sodium Chloride 100 ml @ 200 mls/hr Q24H IV Last administered on 06/01/17 17:15; Start 05/31/17 at 18:00; Stop 06/01/17 at 17:23 ; Status DC Famotidine (Pepcid) 20 mg BID PO Last administered on 06/02/17 21:18; Start 06/01/17 at 21:00 Fat Emulsion Intravenous 250 ml @ 10 mls/hr Q24H IV Last administered on 21:17; Start 06/01/17 at 20:00 Furosemide (Lasix Inj) 40 mg ONCE ONCE IV PUSH Last administered on 12:23; Start 05/30/17 at 10:30; Stop 05/30/17 at 10:31; Status DC Furosemide (Lasix) 20 mg DAILY PO Last administered on 06/02/17 10:03; Start 05/29/17 at 09:00 Isosorbide Mononitrate (Ismo) 60 mg DAILY PO Last administered on 06/02/17 10: 05; Start 05/31/17 at 09:00 Megestrol Acetate (Megace Liq) 800 mg DAILY PO Last administered on 06/02/17 10:03; Start 06/02/17 at 09:00 Mirtazapine (Remeron) 15 mg HS PO Last administered on 06/02/17 21:18; Start 05/25/17 at 21:00 Miscellaneous (Pill Splitter) 1 ea UNSCH PRN OTHER SEE LABEL COMMENTS; Start 05/25/17 at 16:00 Multivitamins 10 ml/Folic Acid 1 mg/Amino Acids/ Electrolytes/ Dextrose 1,010.2 ml @ 42 mls/hr Q24H IV Last administered on 06/02/17 21:17; Start 06/01/17 at 20:00 Nitrofurantoin Macrocrystals (Macrobid) 100 mg BIDPC PO Last administered on 18:00; Start 06/01/17 at 18:00; Stop 06/06/17 at 21:00 Ondansetron HCl (Zofran Odt) 4 mg Q6H PRN PO nausea Last administered on 05/30 12:28; Start 05/30/17 at 10:00 Potassium Chloride (KCl) 20 meq DAILY PO Last administered on 06/02/17 10:05; Start 05/31/17 at 09:00 Risperidone (risperDAL) 0.25 mg Q12HR PO Last administered on 06/02/17 21:18; Start 05/27/17 at 14:00 Sodium Chloride 1,000 ml @ 84 mls/hr [id number] IV Last administered on 05:22; Start 05/28/17 at 17:45; Stop 05/30/17 at 08:48; Status DC Sodium Chloride (NS Flush) 2 ml UNSCH PRN IV FLUSH FLUSH AFTER USING IV ACCESS ; Start 05/24/17 at 14:15 Spironolactone (Aldactone) 12.5 mg DAILY PO Last administered on 06/02/17 10: 04; Start 05/26/17 at 09:00 Tamsulosin HCl (Flomax) 0.4 mg DAILY PO Last administered on 06/02/17 10:05; Start 06/02/17 at 09:00 Tramadol HCl (Ultram) 50 mg Q6H PRN PO PAIN 1-10 Last administered on 16:17; Start 05/25/17 at 16:00; Stop 05/28/17 at 17:40; Status DC Assessment and Plan Problem List: (1) CVA (cerebral vascular accident) ICD Codes: I63.9 - Cerebral infarction, unspecified Status: Acute (2) Dementia ICD Codes: F03.90 - Unspecified dementia without behavioral disturbance Status: Chronic Plan: appears less confused with addition of risperdal Assessment and Plan cva will consult PT eval rx Discussed Condition With son Problem Qualifiers (1) CVA (cerebral vascular accident): (2) Dementia: Kenyon Patino DO Jun 03, 2017 10:00
[2017-06-03] MEDS: SODIUM CHLORIDE 0.9% FLUSH 10 ML FLUSH IV FLUSH SCH ×2 (10:13→22:16)
[2017-06-03] MEDS: ASPIRIN EC 81 MG TABEC PO SCH (10:13)
[2017-06-03] MEDS: SPIRONOLACTONE 25 MG TAB PO SCH (10:13)
[2017-06-03] MEDS: CARVEDILOL 12.5 MG TAB PO SCH ×2 (10:13→22:17)
[2017-06-03] MEDS: TAMSULOSIN HCL 0.4 MG CAP PO SCH (10:13)
[2017-06-03] MEDS: APIXABAN 2.5 MG TABLET PO SCH ×2 (10:13→22:17)
[2017-06-03] MEDS: FUROSEMIDE 20 MG TAB PO SCH (10:14)
[2017-06-03] MEDS: NITROFURANTOIN MONOHYD MACROCR 100 MG CAP PO SCH ×2 (10:14→17:53)
[2017-06-03] MEDS: POTASSIUM CHLORIDE 20 MEQ CONTROLLED RELEASE TAB PO SCH (10:14)
[2017-06-03] MEDS: ISOSORBIDE MONONITRATE 20 MG TAB PO SCH (10:14)
[2017-06-03] MEDS: FAMOTIDINE 20 MG TAB PO SCH ×2 (10:14→22:17)
[2017-06-03] MEDS: MEGESTROL ACETATE SUSP 400 MG/10 ML CUP PO SCH (10:14)
[2017-06-03] MEDS: risperiDONE 0.25 MG TAB PO SCH ×2 (10:14→22:17)
[2017-06-03] MEDS: CLINIMIX E 4.25/5 1000 mL- </= 42 mls/hr IV SCH ×3 (22:16)
[2017-06-03] MEDS: FAT EMULSION 20% INJ 250 ML (@10 mls/hr) IV SCH (22:16)
[2017-06-03] MEDS: MIRTAZAPINE 15 MG TAB PO SCH (22:17)
[2017-06-04] VITALS: BP 107/58; PULSE 60; RESP 18; TEMP 97.6; O2SAT 100
[2017-06-04 04:00] VITALS: PULSE 60; RESP 20; TEMP 98.4; O2SAT 97
[2017-06-04 08:00] VITALS: BP 124/64; PULSE 85; RESP 18; TEMP 98.2; O2SAT 99
--- NOTE | 2017-06-04 08:55 | HHI.PR ---
Subjective Remarks less alert this am arms swollen 1 plus edema feet Objective Vital Signs Date Time Temp Pulse Resp B/P (MAP) Pulse Ox O2 Delivery O2 Flow Rate FiO2 06/04/17 04:00 98.4 60 20 97 06/04/17 00:00 97.6 60 18 107/58 (74) 100 06/03/17 20:06 Nasal Cannula 2.00 06/03/17 20:00 97.7 60 18 138/63 (88) 98 06/03/17 16:00 97.9 64 18 130/58 (82) 100 06/03/17 12:00 97.8 62 18 138/63 (88) 100 06/03/17 10:17 Nasal Cannula 2.00 06/03/17 10:10 98 Nasal Cannula 2.00 I/O 06/03/17 06/03/17 06/03/17 06/04/17 06/04/17 06/04/17 07:00 15:00 23:00 07:00 15:00 23:00 Intake Total 0 ml 1289 ml 459 ml Output Total 350 ml 200 ml 200 ml Balance -350 ml 1089 ml 259 ml Intake Oral 0 ml 0 ml 50 ml IV Total 1289 ml 409 ml Output Urine Total 350 ml 200 ml 200 ml # Bowel Movements 0 1 Result Diagram: 06/03/17 0724 06/01/17 1235 Imaging Last Impressions Upper Extremity Ultrasound 05/31/17 0000 Signed Impressions: Service Date/Time: Wednesday, May 31, 2017 09:52 - CONCLUSION: Negative for deep venous thrombosis. Maxx Maria MD FACR Chest X-Ray 05/28/17 0000 Signed Impressions: Service Date/Time: Sunday, May 28, 2017 10:05 - CONCLUSION: 1. Moderate pulmonary edema bilaterally. 2. Cardiomegaly. 3. Small bilateral pleural effusions. 4. Degenerative changes throughout the thoracic spine. Grant Arora MD Brain MRI 05/25/17 0000 Signed Impressions: Service Date/Time: April 17:09 - CONCLUSION: 1. Small nonhemorrhagic infarction involving the left occipital lobe with a tiny focus of nonhemorrhagic infarction involving the left head of caudate. 2. Atrophy and chronic small vessel ischemic change. 3. Encephalomalacia within the right frontal lobe. 4. Chronic vegas sinus disease. Hay Engel Jr., MD Neck CTA 05/24/17 1240 Signed Impressions: Service Date/Time: Wednesday, May 24, 2017 12:49 - CONCLUSION: 1. Calcified plaque involving the ICA origins without a hemodynamically significant stenosis. Hay Engel Jr., MD Head CTA 05/24/17 1240 Signed Impressions: Service Date/Time: Wednesday, May 24, 2017 12:49 - CONCLUSION: No luminal filling defects to suggest embolus or thrombus. A wet reading was supplied to Dr. Solares at 1324 hrs. Hay Engel Jr., MD Head CT 05/24/17 0000 Signed Impressions: Service Date/Time: Wednesday, May 24, 2017 12:49 - CONCLUSION: 1. No hemorrhage or acute infarction. 2. Atrophy, chronic small vessel ischemic change, and right frontal encephalomalacia. 3. Chronic [place]gas sinus disease. Hay Engel Jr., MD Objective Remarks GENERAL:frail confused female patient. SKIN: Warm and dry. HEAD: Normocephalic. EYES: No scleral icterus. No injection or drainage. NECK: Supple, trachea midline. No JVD or lymphadenopathy. CARDIOVASCULAR: Regular rate and rhythm without murmurs, gallops, or rubs. RESPIRATORY: Breath sounds equal bilaterally diminished. No accessory muscle use. GASTROINTESTINAL: Abdomen soft, non-tender, nondistended. EXTREMITIES: No cyanosis, edema.2-3 upper extremities NEUROLOGICAL: arousable but somnolent no focal deficits Medications and IVs Inpatient Medications Acetaminophen (Tylenol) 500 mg Q4H PRN PO HEADACHE Last administered on 16:12; Start 05/24/17 at 14:15 Albuterol/ Ipratropium (Duoneb Neb) 1 ampule Q6HR NEB PRN NEB dyspnea Last administered on 05/29/17 10:53; Start 05/28/17 at 05:00 Apixaban (Eliquis) 2.5 mg BID PO Last administered on 06/03/17 22:17; Start 05/25/17 at 21:00 Aspirin (Ecotrin Ec) 81 mg DAILY PO Last administered on 06/03/17 10:13; Start 05/26/17 at 09:00; Status Future hold Atorvastatin Calcium (Lipitor) 80 mg HS PO Last administered on 06/02/17 21:18 ; Start 05/25/17 at 21:00; Stop 06/03/17 at 10:06; Status DC Carvedilol (Coreg) 25 mg BID PO Last administered on 06/03/17 22:17; Start at 21:00 Ceftriaxone Sodium 1000 mg/ Sodium Chloride 100 ml @ 200 mls/hr Q24H IV Last administered on 06/01/17 17:15; Start 05/31/17 at 18:00; Stop 06/01/17 at 17:23 ; Status DC Famotidine (Pepcid) 20 mg BID PO Last administered on 06/03/17 22:17; Start 06/01/17 at 21:00 Fat Emulsion Intravenous 250 ml @ 10 mls/hr Q24H IV Last administered on 22:16; Start 06/01/17 at 20:00 Furosemide (Lasix Inj) 40 mg ONCE ONCE IV PUSH Last administered on 12:23; Start 05/30/17 at 10:30; Stop 05/30/17 at 10:31; Status DC Furosemide (Lasix) 20 mg DAILY PO Last administered on 06/03/17 10:14; Start 05/29/17 at 09:00 Isosorbide Mononitrate (Ismo) 60 mg DAILY PO Last administered on 06/03/17 10: 14; Start 05/31/17 at 09:00 Megestrol Acetate (Megace Liq) 800 mg DAILY PO Last administered on 06/03/17 10:14; Start 06/02/17 at 09:00 Mirtazapine (Remeron) 15 mg HS PO Last administered on 06/03/17 22:17; Start 05/25/17 at 21:00 Miscellaneous (Pill Splitter) 1 ea UNSCH PRN OTHER SEE LABEL COMMENTS; Start 05/25/17 at 16:00 Multivitamins 10 ml/Folic Acid 1 mg/Amino Acids/ Electrolytes/ Dextrose 1,010.2 ml @ 42 mls/hr Q24H IV Last administered on 06/03/17 22:16; Start 06/01/17 at 20:00 Nitrofurantoin Macrocrystals (Macrobid) 100 mg BIDPC PO Last administered on 17:53; Start 06/01/17 at 18:00; Stop 06/06/17 at 21:00 Ondansetron HCl (Zofran Odt) 4 mg Q6H PRN PO nausea Last administered on 05/30 12:28; Start 05/30/17 at 10:00 Potassium Chloride (KCl) 20 meq DAILY PO Last administered on 06/03/17 10:14; Start 05/31/17 at 09:00 Risperidone (risperDAL) 0.25 mg Q12HR PO Last administered on 06/03/17 22:17; Start 05/27/17 at 14:00 Sodium Chloride 1,000 ml @ 84 mls/hr [id number] IV Last administered on 05:22; Start 05/28/17 at 17:45; Stop 05/30/17 at 08:48; Status DC Sodium Chloride (NS Flush) 2 ml UNSCH PRN IV FLUSH FLUSH AFTER USING IV ACCESS ; Start 05/24/17 at 14:15 Spironolactone (Aldactone) 12.5 mg DAILY PO Last administered on 06/03/17 10: 13; Start 05/26/17 at 09:00 Tamsulosin HCl (Flomax) 0.4 mg DAILY PO Last administered on 06/03/17 10:13; Start 06/02/17 at 09:00 Tramadol HCl (Ultram) 50 mg Q6H PRN PO PAIN 1-10 Last administered on 16:17; Start 05/25/17 at 16:00; Stop 05/28/17 at 17:40; Status DC Assessment and Plan Problem List: (1) CVA (cerebral vascular accident) ICD Codes: I63.9 - Cerebral infarction, unspecified Status: Acute (2) Dementia ICD Codes: F03.90 - Unspecified dementia without behavioral disturbance Status: Chronic Plan: somnolent today (3) UTI (urinary tract infection) ICD Codes: N39.0 - Urinary tract infection, site not specified Plan: had been on nitrofuranitoin but urine dark and wbc up will change to cipro edematous will increase diuretics cxr and bmp pending Assessment and Plan cva will consult PT eval rx Discussed Condition With son prognosis guarded Problem Qualifiers (1) CVA (cerebral vascular accident): (2) Dementia: Kenyon Patino DO Jun 04, 2017 08:55
[2017-06-04 10:03] LABS: BACTERIA, URINE OCC /hpf; BLOOD, URINE TRACE (NEG); GLUCOSE,URINE NEG (NEG); KETONE, URINE NEG (NEG); MUCUS URINE MANY /lpf (OCC); NITRITE,URINE NEG (NEG); PH, URINE 5.5 (5.0-8.5); SQUAMOUS EPITHELIAL CELL URINE <1 /hpf (0-5); TRANSITIONAL EPI CELLS, URINE <1 /hpf; URINE COLOR YELLOW (YELLW/STRAW)
[2017-06-04 10:04] LABS: COMMENT (UR) CATH-CULTURE IND; CULTURE IF INDICATED CATH CULTURE IND
--- NOTE | 2017-06-04 10:33 | RADRPT ---
EXAM DATE/TIME: 06/04/2017 11:02 [place] COMPARISON: No previous studies available for comparison. INDICATIONS : Short of Breath MEDICAL HISTORY : Hypertension. Dementia. Atrial fibrillation SURGICAL HISTORY : Pacemaker. Back surgery and bilateral cataracts ENCOUNTER: Subsequent ACUITY: 4 - 6 days PAIN SCORE: Non-responsive. LOCATION: Bilateral chest FINDINGS: A single view of the chest demonstrates the lungs to be symmetrically aerated without evidence of mas s, or infiltrate effusion. Blunting of both kyphotic angle suspicious for small pleural effusions Lar ge stent overlies the heart. Left subclavian bipolar pacer in good position. The cardiomediastinal c ontours are unremarkable. Osseous structures are intact. CONCLUSION: Pacemaker in heart stent as described above. Blunting of the costophrenic angles suggesting small ple ural effusions Mynor Stiles MD on June 04, 2017 at 10:26 Board Certified Radiologist. This report was verified electronically.
[2017-06-04 10:38] VITALS: O2SAT 97
[2017-06-04] MEDS: APIXABAN 2.5 MG TABLET PO SCH ×2 (10:40→22:34)
[2017-06-04] MEDS: MEGESTROL ACETATE SUSP 400 MG/10 ML CUP PO SCH (10:40)
[2017-06-04] MEDS: CARVEDILOL 12.5 MG TAB PO SCH ×2 (10:40→22:33)
[2017-06-04] MEDS: TAMSULOSIN HCL 0.4 MG CAP PO SCH (10:41)
[2017-06-04] MEDS: FAMOTIDINE 20 MG TAB PO SCH ×2 (10:41→22:33)
[2017-06-04] MEDS: SPIRONOLACTONE 25 MG TAB PO SCH (10:41)
[2017-06-04] MEDS: POTASSIUM CHLORIDE 20 MEQ CONTROLLED RELEASE TAB PO SCH (10:41)
[2017-06-04] MEDS: ISOSORBIDE MONONITRATE 20 MG TAB PO SCH (10:41)
[2017-06-04] MEDS: risperiDONE 0.25 MG TAB PO SCH ×2 (10:42→22:33)
[2017-06-04] MEDS: SODIUM CHLORIDE 0.9% FLUSH 10 ML FLUSH IV FLUSH SCH ×2 (10:42→22:34)
[2017-06-04] MEDS: ASPIRIN EC 81 MG TABEC PO SCH (10:42)
[2017-06-04] MEDS: FUROSEMIDE 20 MG/2 ML VIAL IV PUSH SCH ×2 (10:46→17:37)
[2017-06-04] MEDS: CIPROFLOXACIN 400 MG PREMIX 200 ML IV SCH (10:46)
[2017-06-04 12:00] VITALS: BP 122/60; PULSE 62; RESP 18; TEMP 98.1; O2SAT 95
[2017-06-04 14:18] LABS: BICARBONATE 28.6 MEQ/L (21.0-32.0); POTASSIUM 3.7 MEQ/L (3.5-5.1)
[2017-06-04 16:00] VITALS: BP 115/54; PULSE 60; RESP 18; TEMP 98.3; O2SAT 99
[2017-06-04] MEDS: MIRTAZAPINE 15 MG TAB PO SCH (22:33)
[2017-06-04] MEDS: FAT EMULSION 20% INJ 250 ML (@10 mls/hr) IV SCH (22:34)
[2017-06-04] MEDS: CLINIMIX E 4.25/5 1000 mL- </= 42 mls/hr IV SCH ×3 (22:34)
[2017-06-05] VITALS (7 sets, daily range): BP systolic 105–144; BP diastolic 50–66; PULSE 60–71; RESP 19–22; TEMP 97.3–98.8; O2SAT 93–100
[2017-06-05] MEDS: SPIRONOLACTONE 25 MG TAB PO SCH (08:43)
[2017-06-05] MEDS: ASPIRIN EC 81 MG TABEC PO SCH (08:44)
[2017-06-05] MEDS: POTASSIUM CHLORIDE 20 MEQ CONTROLLED RELEASE TAB PO SCH (08:44)
[2017-06-05] MEDS: ISOSORBIDE MONONITRATE 20 MG TAB PO SCH (08:44)
[2017-06-05] MEDS: APIXABAN 2.5 MG TABLET PO SCH ×2 (08:44→20:32)
[2017-06-05] MEDS: FAMOTIDINE 20 MG TAB PO SCH ×2 (08:44→20:33)
[2017-06-05] MEDS: TAMSULOSIN HCL 0.4 MG CAP PO SCH (08:44)
[2017-06-05] MEDS: FUROSEMIDE 20 MG/2 ML VIAL IV PUSH SCH ×2 (08:45→17:52)
[2017-06-05] MEDS: MEGESTROL ACETATE SUSP 400 MG/10 ML CUP PO SCH (08:45)
[2017-06-05] MEDS: CARVEDILOL 12.5 MG TAB PO SCH ×2 (08:45→20:33)
[2017-06-05] MEDS: risperiDONE 0.25 MG TAB PO SCH ×2 (08:45→20:33)
[2017-06-05] MEDS: SODIUM CHLORIDE 0.9% FLUSH 10 ML FLUSH IV FLUSH SCH ×2 (08:45→20:34)
[2017-06-05 09:18] LABS: HEMATOCRIT 26.5 % (35.0-46.0); MEAN CELL VOLUME 93.5 FL (80.0-100.0); MEAN CORPUSCULAR HEMOGLOBIN 31.5 PG (27.0-34.0); MEAN CORPUSCULAR HGB CONC 33.7 % (32.0-36.0); PLATELET COUNT 33 TH/MM3 (150-450); RED BLOOD COUNT 2.84 MIL/MM3 (4.00-5.30); RED CELL DISTRIBUTION WIDTH 15.9 % (11.6-17.2); WHITE BLOOD COUNT 6.8 TH/MM3 (4.0-11.0)
[2017-06-05 09:21] LABS: REVIEW FLAG FINAL
[2017-06-05 09:39] LABS: BICARBONATE 29.5 MEQ/L (21.0-32.0); POTASSIUM 3.7 MEQ/L (3.5-5.1)
[2017-06-05] MEDS: CIPROFLOXACIN 400 MG PREMIX 200 ML IV SCH (10:15)
--- NOTE | 2017-06-05 11:38 | HHI.PR ---
Subjective Remarks Patient is resting comfortably. Continues to have very poor appetite. Opens eyes when prompted however very weak and debilitated Objective Vital Signs Date Time Temp Pulse Resp B/P (MAP) Pulse Ox O2 Delivery O2 Flow Rate FiO2 06/05/17 09:46 99 Nasal Cannula 1.00 06/05/17 08:00 97.3 60 20 123/56 (78) 93 06/05/17 04:00 97.3 71 19 105/66 (79) 97 06/05/17 00:00 97.9 61 20 144/50 (81) 100 06/04/17 20:00 Nasal Cannula 2.00 06/04/17 18:20 Nasal Cannula 2.00 06/04/17 16:00 98.3 60 18 115/54 (74) 99 06/04/17 12:00 98.1 62 18 122/60 (80) 95 I/O 06/04/17 06/04/17 06/04/17 06/05/17 06/05/17 06/05/17 07:00 15:00 23:00 07:00 15:00 23:00 Intake Total 459 ml 887 ml 624 ml Output Total 200 ml 400 ml 450 ml Balance 259 ml 487 ml 174 ml Intake Oral 50 ml 120 ml 0 ml IV Total 409 ml 767 ml TPN/PPN 504 ml Lipid 120 ml Output Urine Total 200 ml 400 ml 450 ml # Bowel Movements 1 0 1 Result Diagram: 06/05/17 0850 06/05/17 0850 Objective Remarks GENERAL: Alert and cooperative. SKIN: Warm and dry. Skin tear left arm HEAD: Normocephalic. EYES: No scleral icterus. No injection or drainage. NECK: Supple, trachea midline. No JVD or lymphadenopathy. CARDIOVASCULAR: Regular rate and rhythm without murmurs, gallops, or rubs. RESPIRATORY: Breath sounds equal bilaterally. No accessory muscle use. GASTROINTESTINAL: Abdomen soft, non-tender, nondistended. MUSCULOSKELETAL: No cyanosis, or edema. BACK: Nontender without obvious deformity. No CVA tenderness. Medications and IVs Current Medications Medications (Trade) Dose Ordered Sig/Linda Route Start Time Stop Time Status Last Admin (NS Flush) 2 ml BID IV FLUSH 05/24/17 21:00 06/04/17 22:34 (NS Flush) 2 ml UNSCH PRN IV FLUSH 05/24/17 14:15 (Tylenol) 500 mg Q4H PRN PO 05/24/17 14:15 05/30/17 16:12 (Ecotrin Ec) 81 mg DAILY PO 05/26/17 09:00 Future hold 06/05/17 08:44 (Coreg) 25 mg BID PO 05/25/17 21:00 06/05/17 08:45 (Remeron) 15 mg HS PO 05/25/17 21:00 06/04/17 22:33 (Aldactone) 12.5 mg DAILY PO 05/26/17 09:00 06/05/17 08:43 (Pill Splitter) 1 ea UNSCH PRN OTHER 05/25/17 16:00 (Eliquis) 2.5 mg BID PO 05/25/17 21:00 06/05/17 08:44 (risperDAL) 0.25 mg Q12HR PO 05/27/17 14:00 06/05/17 08:45 (Duoneb Neb) 1 ampule Q6HR NEB PRN NEB 05/28/17 05:00 05/29/17 10:53 (KCl) 20 meq DAILY PO 05/31/17 09:00 06/05/17 08:44 (Ismo) 60 mg DAILY PO 05/31/17 09:00 06/05/17 08:44 (Zofran Odt) 4 mg Q6H PRN PO 05/30/17 10:00 05/30/17 12:28 Multivitamins 10 ml/Folic Acid 1 mg/Amino Acids/ Electrolytes/ Dextrose 1,010.2 ml @ 42 mls/hr Q24H IV 06/01/17 20:00 06/04/17 22:34 Fat Emulsion Intravenous 250 ml @ 10 mls/hr Q24H IV 06/01/17 20:00 06/04/17 22:34 (Megace Liq) 800 mg DAILY PO 06/02/17 09:00 06/05/17 08:45 (Flomax) 0.4 mg DAILY PO 06/02/17 09:00 06/05/17 08:44 Ciprofloxacin/ Dextrose 200 ml @ 200 mls/hr Q24H IV 06/04/17 10:00 06/05/17 10:15 (Lasix Inj) 20 mg BID@18 IV PUSH 06/04/17 10:00 06/05/17 08:45 (Pepcid) 10 mg BID PO 06/04/17 21:00 06/05/17 08:44 Assessment and Plan Problem List: (1) HLD (hyperlipidemia) ICD Codes: E78.5 - Hyperlipidemia, unspecified (2) HTN (hypertension) ICD Codes: I10 - Essential (primary) hypertension (3) Altered mental status ICD Codes: R41.82 - Altered mental status, unspecified Status: Chronic (4) Elevated troponin ICD Codes: R74.8 - Abnormal levels of other serum enzymes (5) Dementia ICD Codes: F03.90 - Unspecified dementia without behavioral disturbance Status: Chronic (6) TIA (transient ischemic attack) ICD Codes: G45.9 - Transient cerebral ischemic attack, unspecified Assessment and Plan 05/25/17 AMS: Patient with mild confusion. Neurology consulted. No acute findings noted thus far. EEG and MRI ordered. Speech is delayed. PT and OT ordered HX CVA: On statin and ASA HLD: Continue Statin HTN: home medication continued. Positive trop: mildly elevated at 0.09. Cardiology consulted and ECHO pending \Labs in AM 05/26/17 AMS: MRI with small acute ischemic events, left occipital and caudate. Neurology managing. On ASA and eliquis. Patient with increased confusion this morning. Allergy list needs to put be added order written for nursing will add medication for agitation once added. EEG: Abnormal EEG due to mild moderate slowing consistent with encephalopathic process. No findings to suggest seizure or seizure focus . Urinary retention: Per nursing patient has not urinated. Order to put medina back in and obtain UA Skin tear: Patient pulled IV out on left arm and skin tear obtained. wound care ordered. Labs pending this AM 05/27/17 Acute CVA; Neurology consulted. On ASA, eliquis, and statin. Patient is confused and gets agitated at times. Will add Risperdal BID and monitor. On telemetry but with confusion patient is constantly pulling. No abnormalities noted on telemetry. Urinary retention: mdeina placed and monitoring. Will add flomax and remove medina in AM. UA is negative HTN; well controlled on current regimen 05/28/17 Acute CVA; neurology consulted. On ASA, eliquis, and statin. ASA put on hold for thrombocytopenia. 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 Patient mental status is continuing to decline. Per nursing has had a poor appetite and sleeping most of day. Son at bedside. Patient wakes up to commands and answers questions and goes back to sleep. O2 2 liters at 96 % but will obtain blood gas to look for elevated CO2 levels. Patient is a do not intubate SOB: Last night per nursing SOB reported. Breathing treatments ordered and chest Xray this AM. On o2 2 liters with good sats. Chest Xray demonstrating moderate bilateral pulmonary edema. UOP at 450. Discussed with Dr. Patino pending ABG will order IVF since patient has minimal PO intake and gentle diuresis with pulmonary edema noted. Will obtain cbc, BMP, and BNP in AM code status is compressions and shock only discussed with son and he will be talking to family and possibly changing to full code. 05/30/17 Acute CVA: Neurology consulted and managing. Discussed with neurology. On Eliquis with ASA on home with thrombocytopenia. Hematology consulted for recommendations. Alert and cooperative today. Will discontinue IVF's. Hypokalmeia: Potassium 3.1 will add replacement Urinary retention: Will remove medina and monitor for retention. HTN: blood pressure elevated t 162/82 will increase isosorbide. 05/31/17 Acute CVA: Alert and cooperative today. Cleared neuro mg for discharge. Hematology consulted for recommendations for anticaigulation Left arm swelling: US ordered to r/o DVT Urinary retention: Medina removed last night at 12:30 bladder scanned this morning for only 170cc. Will repeat bladder scan if no urinary out put in 4 hours. Fluids encouraged. HTN: continue current therapy. 06/01/17 Acute CVA: Alert and cooperative. Very poor appetite on Remeron nightly. On eliquis and asa added per recommendations of hematology. Will monitor platelets. Discussed with Dr. Patino and PPN is ordered. UTI; On rocephin and culture is sensitive. HTN: Well controlled. PT/OT GI prophylaxis 06/02/17 Poor appetite: Patient continues to have poor appetite. On Remeron and Megace added yesterday. PPN started yesterday. UTI: IV rocephin changed to macrobid with stop date of the 7th Urinary retention: Medina removed and patient has needed to I+O cath for 2 days. Will reinsert Medina and add Flomax and reattempt to remove at later date. Labs are pending 06/05/17 CVA: Patient with worsening mental status. Opens eyes to commands but then goes back to sleep. Also very poor appetite started on PPN on to supplement however mental status or energy level has not not improve. Son Tyrese called and discussed at length. He is interested in a hospice consult at this point. Order placed. Discussed with Dr. Patino. /I and the MANAGER PHOTO have both examined this patient and reviewed this note and I agree with these findings and plan of care. Kenyon Patino DO / Problem Qualifiers (1) HTN (hypertension): Qualified Codes: I10 - Essential (primary) hypertension (2) Altered mental status: Qualified Codes: R41.82 - Altered mental status, unspecified (3) Dementia: Ambreen Lyon MANAGER PHOTO Jun 05, 2017 11:38
--- NOTE | 2017-06-05 18:32 | PD.CARD.PN ---
Subjective Subjective Remarks No CP or SOB, confused Objective Medications Current Medications Medications (Trade) Dose Ordered Sig/Linda Route Start Time Stop Time Status Last Admin (NS Flush) 2 ml BID IV FLUSH 05/24/17 21:00 06/04/17 22:34 (NS Flush) 2 ml UNSCH PRN IV FLUSH 05/24/17 14:15 (Tylenol) 500 mg Q4H PRN PO 05/24/17 14:15 05/30/17 16:12 (Ecotrin Ec) 81 mg DAILY PO 05/26/17 09:00 Future hold 06/05/17 08:44 (Coreg) 25 mg BID PO 05/25/17 21:00 06/05/17 08:45 (Remeron) 15 mg HS PO 05/25/17 21:00 06/04/17 22:33 (Aldactone) 12.5 mg DAILY PO 05/26/17 09:00 06/05/17 08:43 (Pill Splitter) 1 ea UNSCH PRN OTHER 05/25/17 16:00 (Eliquis) 2.5 mg BID PO 05/25/17 21:00 06/05/17 08:44 (risperDAL) 0.25 mg Q12HR PO 05/27/17 14:00 06/05/17 08:45 (Duoneb Neb) 1 ampule Q6HR NEB PRN NEB 05/28/17 05:00 05/29/17 10:53 (KCl) 20 meq DAILY PO 05/31/17 09:00 06/05/17 08:44 (Ismo) 60 mg DAILY PO 05/31/17 09:00 06/05/17 08:44 (Zofran Odt) 4 mg Q6H PRN PO 05/30/17 10:00 05/30/17 12:28 Multivitamins 10 ml/Folic Acid 1 mg/Amino Acids/ Electrolytes/ Dextrose 1,010.2 ml @ 42 mls/hr Q24H IV 06/01/17 20:00 06/04/17 22:34 Fat Emulsion Intravenous 250 ml @ 10 mls/hr Q24H IV 06/01/17 20:00 06/04/17 22:34 (Megace Liq) 800 mg DAILY PO 06/02/17 09:00 06/05/17 08:45 (Flomax) 0.4 mg DAILY PO 06/02/17 09:00 06/05/17 08:44 Ciprofloxacin/ Dextrose 200 ml @ 200 mls/hr Q24H IV 06/04/17 10:00 06/05/17 10:15 (Lasix Inj) 20 mg BID@09,18 IV PUSH 06/04/17 10:00 06/05/17 17:52 (Pepcid) 10 mg BID PO 06/04/17 21:00 06/05/17 08:44 Vital Signs / I&O Vital Signs Date Time Temp Pulse Resp B/P (MAP) Pulse Ox O2 Delivery O2 Flow Rate FiO2 06/05/17 16:00 97.8 61 20 135/58 (83) 97 06/05/17 12:00 98.8 66 20 115/54 (74) 100 06/05/17 09:46 99 Nasal Cannula 1.00 06/05/17 08:00 97.3 60 20 123/56 (78) 93 06/05/17 04:00 97.3 71 19 105/66 (79) 97 06/05/17 00:00 97.9 61 20 144/50 (81) 100 06/04/17 20:00 Nasal Cannula 2.00 I/O 06/04/17 06/04/17 06/04/17 06/05/17 06/05/17 06/05/17 07:00 15:00 23:00 07:00 15:00 23:00 Intake Total 459 ml 887 ml 624 ml 984 ml Output Total 200 ml 400 ml 450 ml 300 ml Balance 259 ml 487 ml 174 ml 684 ml Intake Oral 50 ml 120 ml 0 ml 240 ml IV Total 409 ml 767 ml TPN/PPN 504 ml 527 ml Lipid 120 ml 217 ml Output Urine Total 200 ml 400 ml 450 ml 300 ml # Bowel Movements 1 0 1 1 Physical Exam GENERAL: In NAD SKIN: Warm and dry. HEAD: Normocephalic. EYES: No scleral icterus. No injection or drainage. NECK: Supple, trachea midline. No JVD or lymphadenopathy. CARDIOVASCULAR: Regular rate and rhythm without murmurs, gallops, or rubs. RESPIRATORY: Breath sounds equal bilaterally. No accessory muscle use. GASTROINTESTINAL: Abdomen soft, non-tender, nondistended. MUSCULOSKELETAL: No cyanosis, or edema. Confused Laboratory Laboratory Tests Test 06/05/17 08:50 White Blood Count 6.8 TH/MM3 Red Blood Count 2.84 MIL/MM3 Hemoglobin 8.9 GM/DL Hematocrit 26.5 % Mean Corpuscular Volume 93.5 FL Mean Corpuscular Hemoglobin 31.5 PG Mean Corpuscular Hemoglobin Concent 33.7 % Red Cell Distribution Width 15.9 % Platelet Count 33 TH/MM3 Mean Platelet Volume 11.5 FL Blood Urea Nitrogen 29 MG/DL Creatinine 0.64 MG/DL Random Glucose 128 MG/DL Calcium Level 8.0 MG/DL Sodium Level 136 MEQ/L Potassium Level 3.7 MEQ/L Chloride Level 99 MEQ/L Carbon Dioxide Level 29.5 MEQ/L Anion Gap 8 MEQ/L Estimat Glomerular Filtration Rate 88 ML/MIN Assessment and Plan Problem List: (1) Altered mental status ICD Codes: R41.82 - Altered mental status, unspecified Status: Chronic (2) TIA (transient ischemic attack) ICD Codes: G45.9 - Transient cerebral ischemic attack, unspecified (3) Dementia ICD Codes: F03.90 - Unspecified dementia without behavioral disturbance Status: Chronic (4) Elevated troponin ICD Codes: R74.8 - Abnormal levels of other serum enzymes Assessment and Plan Remains confused, but quite comfortable. No angina or CHF symptoms, remains stable. Recent echo showed preserved LV systolic function with no wall motion abnormalities, no evidence of ACS. Increase activity, PT. Normal pacemaker function, no need for reprogramming at this time. Anticipate discharge/ placement soon. Seen by hospice; transfer to hospice planned based on family wishes. Problem Qualifiers (1) Altered mental status: Qualified Codes: R41.82 - Altered mental status, unspecified (2) Dementia: Umberto Ellis MD Jun 05, 2017 18:32
[2017-06-05] MEDS: FAT EMULSION 20% INJ 250 ML (@10 mls/hr) IV SCH (20:23)
[2017-06-05] MEDS: CLINIMIX E 4.25/5 1000 mL- </= 42 mls/hr IV SCH ×3 (20:23)
[2017-06-05] MEDS: MIRTAZAPINE 15 MG TAB PO SCH (20:33)
[2017-06-06] VITALS: BP 127/60; PULSE 61; RESP 20; TEMP 99; O2SAT 96
[2017-06-06 04:00] VITALS: BP 106/53; PULSE 61; RESP 20; TEMP 98.5; O2SAT 95
[2017-06-06 08:00] VITALS: BP 128/88; PULSE 60; RESP 20; TEMP 97.8; O2SAT 96
[2017-06-06] MEDS: ISOSORBIDE MONONITRATE 20 MG TAB PO SCH (08:09)
[2017-06-06] MEDS: ASPIRIN EC 81 MG TABEC PO SCH (08:12)
[2017-06-06] MEDS: POTASSIUM CHLORIDE 20 MEQ CONTROLLED RELEASE TAB PO SCH (08:12)
[2017-06-06] MEDS: APIXABAN 2.5 MG TABLET PO SCH (08:12)
[2017-06-06] MEDS: CARVEDILOL 12.5 MG TAB PO SCH (08:12)
[2017-06-06] MEDS: SODIUM CHLORIDE 0.9% FLUSH 10 ML FLUSH IV FLUSH SCH (08:13)
[2017-06-06] MEDS: FAMOTIDINE 20 MG TAB PO SCH (08:15)
[2017-06-06] MEDS ORDERED: CARV12.5 PO (08:17)
[2017-06-06] MEDS ORDERED: ISOS20TA PO (08:17)
[2017-06-06] MEDS ORDERED: IPRASOL NEB (08:17)
[2017-06-06] MEDS ORDERED: TRAM50TA PO (08:17)
[2017-06-06] MEDS ORDERED: RISP.25 PO (08:17)
[2017-06-06] MEDS ORDERED: FURO20TA PO (08:17)
[2017-06-06] MEDS ORDERED: ACET500T13 PO (08:17)
[2017-06-06] MEDS ORDERED: POTA20TA5 PO (08:17)
[2017-06-06] MEDS ORDERED: ONDA4TAB7 PO (08:17)
--- NOTE | 2017-06-06 08:28 | HHI.DS ---
Discharge Summary Admission Date May 24, 2017 at 14:16 Discharge Date: Jun 06, 2017 Admitting Diagnosis AMS,NONSTEMI (1) CVA (cerebral vascular accident) ICD Codes: I63.9 - Cerebral infarction, unspecified Status: Acute (2) Dementia ICD Codes: F03.90 - Unspecified dementia without behavioral disturbance Status: Chronic (3) Altered mental status ICD Codes: R41.82 - Altered mental status, unspecified Status: Chronic Brief History Patient is an 81-year-old [facility] who during PT became unresponsive and had tremors all over. Patient is at [facility] s/p right tibial fracture. In the ER she was initially non verbal but then returning to baseline. Patient was also found to have positive trops. She is admitted for evaluation. CBC/BMP: 06/05/17 0850 06/05/17 0850 Significant Findings Laboratory Tests Test 06/04/17 09:37 06/04/17 13:30 06/05/17 08:50 Urine Turbidity HAZY (CLEAR) Urine Protein 30 mg/dL (NEG-TRACE) Urine Occult Blood TRACE (NEG) Urine Leukocyte Esterase LARGE (NEG) Urine RBC 16 /hpf (0-3) Urine WBC 124 /hpf (0-5) Urine Bacteria OCC /hpf (NONE) Urine Mucus MANY /lpf (OCC) Urine Yeast (Budding) RARE (NONE) Blood Urea Nitrogen 29 MG/DL (7-18) 29 MG/DL (7-18) Random Glucose 136 MG/DL (74-106) 128 MG/DL (74-106) Calcium Level 7.6 MG/DL (8.5-10.1) 8.0 MG/DL (8.5-10.1) Prealbumin 5 MG/DL (20-40) Red Blood Count 2.84 MIL/MM3 (4.00-5.30) Hemoglobin 8.9 GM/DL (11.6-15.3) Hematocrit 26.5 % (35.0-46.0) Platelet Count 33 TH/MM3 (150-450) Mean Platelet Volume 11.5 FL (7.0-11.0) Estimat Glomerular Filtration Rate 88 ML/MIN (>89) PE at Discharge GENERAL: Alert and cooperative. SKIN: Warm and dry. Skin tear left arm HEAD: Normocephalic. EYES: No scleral icterus. No injection or drainage. NECK: Supple, trachea midline. No JVD or lymphadenopathy. CARDIOVASCULAR: Regular rate and rhythm without murmurs, gallops, or rubs. RESPIRATORY: Breath sounds equal bilaterally. No accessory muscle use. GASTROINTESTINAL: Abdomen soft, non-tender, nondistended. MUSCULOSKELETAL: No cyanosis, or edema. BACK: Nontender without obvious deformity. No CVA tenderness. Hospital Course Patient is an 81-year-old female from [facility] who during PT became unresponsive and had tremors all over. Patient is at [facility] s/p right tibial fracture. In the ER she was initially non verbal but then returning to baseline. Patient was also found to have positive trops. She is admitted for evaluation. MRI showed small acute ischemic events left occipital and caudate. Neurology was consulted and patient is o ASA and Eliquis. PT/OT/ST. Patient has a past medical history of thrombocytopenia and hematology was consulted for recommendations. Cardiology consulted for hypotension. She was also treated for a UTI during her stay and has a medina catheter for retention. During her hospital course she has continued to decline and mental status deteriorated. Dr. Patino discussed with Son Monday and I called and talked to son yesterday. It was decided to have a hospice consult and plan today is to have patient discharge home with hospice. I and the EVENT MARKETING REPRESENTATIVE have both examined this patient and reviewed this note and I agree with these findings and plan of care. Kenyon Patino DO Pt Condition on Discharge: Deteriorating Discharge Disposition: Hospice/ Home Discharge Instructions DIET: Follow Instructions for: As Tolerated, No Restrictions Activities you can perform: Regular-No Restrictions Follow up Referrals: Appointment for Follow Up @ Hospice New Medications: Acetaminophen (APAP Extra Strength) 500 Mg Tab 500 MG PO Q4H PRN for HEADACHE for 60 Days, #360 TAB Carvedilol (Coreg) 12.5 Mg Tab 25 MG PO BID for Blood Pressure Management for 30 Days, #120 TAB Furosemide (Furosemide) 20 Mg Tab 20 MG PO BID@09,18 PRN for DYSPNEA for 30 Days, TAB Ipratropium-Albuterol Neb (Duoneb) 0.5-2.5 Mg/3 Ml Neb 1 AMPULE NEB Q6HR NEB PRN for dyspnea for 30 Days, ML Isosorbide Mononitrate (Isosorbide Mononitrate) 20 Mg Tab 60 MG PO DAILY for Blood Pressure Management for 30 Days, #90 TAB Ondansetron Odt (Ondansetron Odt) 4 Mg Tab 4 MG PO Q6H PRN for nausea for 30 Days, #120 TAB Potassium Chloride Microencaps (Potassium Chloride Microencaps) 20 Meq Tab 20 MEQ PO DAILY for Electrolyte Replacement for 30 Days, #30 TAB Risperidone (Risperdal) 0.25 Mg Tab 0.25 MG PO Q12HR for Agitation for 30 Days, #30 TAB Continued Medications: Tramadol (Tramadol) 50 Mg Tab 50 MG PO Q6H PRN for PAIN for 30 Days, #120 TAB 0 Refills (This prescription has been renewed) Discontinued Medications: Apixaban (Eliquis) 2.5 Mg Tab 2.5 MG PO BID for Blood Clot Prevention, TAB [address] (Aspirin 81) 81 Mg Tabdr 81 MG PO DAILY, TAB 0 Refills Carvedilol (Carvedilol) 25 Mg Tab 25 MG PO BID, TAB 0 Refills Isosorbide Mononitrate (Isosorbide Mononitrate) 20 Mg Tab 30 MG PO DAILY for Prevent Chest Pain, TAB 0 Refills Take 2 doses 7 hours apart. Mirtazapine (Mirtazapine) 15 Mg Tab 15 MG PO HS for Depression Control, TAB 0 Refills Rosuvastatin (Rosuvastatin) 40 Mg Tab 40 MG PO HS for Cholesterol Management, TAB 0 Refills Spironolactone (Spironolactone) 25 Mg Tab 12.5 MG PO DAILY, TAB 0 Refills Ambreen Lyon Jun 06, 2017 08:28
[2017-06-06] MEDS ORDERED: MORPHINE SULFATE 2 MG/ML INJ IM PRN (08:45)
[2017-06-06] MEDS ORDERED: FUROSEMIDE 20 MG TAB PO PRN (09:00)
[2017-06-06] MEDS: risperiDONE 0.25 MG TAB PO SCH (09:00)
[2017-06-06 09:21] VITALS: O2SAT 98
[2017-06-06] MEDS: CIPROFLOXACIN 400 MG PREMIX 200 ML IV SCH (09:56)
[2017-06-06 12:00] VITALS: BP 98/47; PULSE 60; RESP 20; TEMP 98.8; O2SAT 98
--- NOTE | 2017-06-06 13:54 | PD.CARD.PN ---
Subjective Subjective Remarks No CP or SOB, comfortable Objective Medications Current Medications Medications (Trade) Dose Ordered Sig/Linda Route Start Time Stop Time Status Last Admin (NS Flush) 2 ml BID IV FLUSH 05/24/17 21:00 06/06/17 08:13 (NS Flush) 2 ml UNSCH PRN IV FLUSH 05/24/17 14:15 (Tylenol) 500 mg Q4H PRN PO 05/24/17 14:15 05/30/17 16:12 (Ecotrin Ec) 81 mg DAILY PO 05/26/17 09:00 Future Hold 06/06/17 08:12 (Coreg) 25 mg BID PO 05/25/17 21:00 06/06/17 08:12 (Pill Splitter) 1 ea UNSCH PRN OTHER 05/25/17 16:00 (Eliquis) 2.5 mg BID PO 05/25/17 21:00 Future Hold 06/06/17 08:12 (risperDAL) 0.25 mg Q12HR PO 05/27/17 14:00 06/06/17 09:00 (Duoneb Neb) 1 ampule Q6HR NEB PRN NEB 05/28/17 05:00 05/29/17 10:53 (KCl) 20 meq DAILY PO 05/31/17 09:00 06/06/17 08:12 (Ismo) 60 mg DAILY PO 05/31/17 09:00 06/06/17 08:09 (Zofran Odt) 4 mg Q6H PRN PO 05/30/17 10:00 05/30/17 12:28 Ciprofloxacin/ Dextrose 200 ml @ 200 mls/hr Q24H IV 06/04/17 10:00 06/06/17 09:56 (Pepcid) 10 mg BID PO 06/04/17 21:00 06/06/17 08:15 (Lasix) 20 mg BID@09,18 PRN PO 06/06/17 09:00 (Morphine Inj) 0.5 mg Q4HR PRN IM 06/06/17 08:45 06/06/17 10:00 Vital Signs / I&O Vital Signs Date Time Temp Pulse Resp B/P (MAP) Pulse Ox O2 Delivery O2 Flow Rate FiO2 06/06/17 12:00 98.8 60 20 98/47 (64) 98 06/06/17 10:05 20 06/06/17 09:21 98 Nasal Cannula 1.00 06/06/17 08:00 97.8 60 20 128/88 (101) 96 06/06/17 08:00 Nasal Cannula 2.00 06/06/17 04:00 98.5 61 20 106/53 (70) 95 06/06/17 00:00 99.0 61 20 127/60 (82) 96 06/05/17 20:30 Nasal Cannula 2.00 06/05/17 20:00 98.0 63 22 115/56 (75) 97 06/05/17 16:00 97.8 61 20 135/58 (83) 97 I/O 06/05/17 06/05/17 06/05/17 06/06/17 06/06/17 06/06/17 07:00 15:00 23:00 07:00 15:00 23:00 Intake Total 624 ml 984 ml 480 ml 156 ml Output Total 450 ml 300 ml 350 ml 600 ml Balance 174 ml 684 ml 130 ml -444 ml Intake Oral 0 ml 240 ml 480 ml IV Total 156 ml TPN/PPN 504 ml 527 ml Lipid 120 ml 217 ml Output Urine Total 450 ml 300 ml 350 ml 600 ml # Bowel Movements 1 1 1 1 Physical Exam GENERAL: In NAD SKIN: Warm and dry. HEAD: Normocephalic. EYES: No scleral icterus. No injection or drainage. NECK: Supple, trachea midline. No JVD or lymphadenopathy. CARDIOVASCULAR: Regular rate and rhythm without murmurs, gallops, or rubs. RESPIRATORY: Breath sounds equal bilaterally. No accessory muscle use. GASTROINTESTINAL: Abdomen soft, non-tender, nondistended. MUSCULOSKELETAL: No cyanosis, or edema. Confused Laboratory Date/Time Source Procedure Growth Status 06/04/17 09:37 Urine Clean Catch Urine Culture - Final Jackie Albicans Complete Assessment and Plan Problem List: (1) Altered mental status ICD Codes: R41.82 - Altered mental status, unspecified Status: Chronic (2) TIA (transient ischemic attack) ICD Codes: G45.9 - Transient cerebral ischemic attack, unspecified (3) Dementia ICD Codes: F03.90 - Unspecified dementia without behavioral disturbance Status: Chronic (4) Elevated troponin ICD Codes: R74.8 - Abnormal levels of other serum enzymes Assessment and Plan No new cardiac issues, remains stable. Continue comfort care. Transfer to hospice as planned. Continue current meds (reviewed). Problem Qualifiers (1) Altered mental status: Qualified Codes: R41.82 - Altered mental status, unspecified (2) Dementia: Umberto Ellis MD Jun 06, 2017 13:54
== END 2017-06-06 13:55 | disposition hospice, home (50) | DRG 64 ==
LOC: NEPE 12:26 → NEDA 14:16 → N04B 16:20
PROVIDERS: ADMIT Family Medicine; ATTEND Family Medicine
PROC: 3E0F7GC Introduction of Other Therapeutic Substance into Respiratory Tract, Via Natural or Artificial Opening (ICD-10-PCS; principal; 2017-05-24)
PROC: 0T9B70Z Drainage of Bladder with Drainage Device, Via Natural or Artificial Opening (ICD-10-PCS; 2017-05-27)
PROC: 0TPBX0Z Removal of Drainage Device from Bladder, External Approach (ICD-10-PCS; 2017-05-31)
DX: I63.9 Cerebral infarction, unspecified (principal); G93.40 Encephalopathy, unspecified; D69.6 Thrombocytopenia, unspecified; G93.89 Other specified disorders of brain; N39.0 Urinary tract infection, site not specified; F01.50 Vascular dementia, unspecified severity, without behavioral disturbance, psychotic disturbance, mood disturbance, and anxiety; R74.8 Abnormal levels of other serum enzymes; F02.80 Dementia in other diseases classified elsewhere, unspecified severity, without behavioral disturbance, psychotic disturbance, mood disturbance, and anxiety; R29.6 Repeated falls; E78.5 Hyperlipidemia, unspecified; I10 Essential (primary) hypertension; Z86.73 Personal history of transient ischemic attack (TIA), and cerebral infarction without residual deficits; S82.401D Unspecified fracture of shaft of right fibula, subsequent encounter for closed fracture with routine healing; S82.201D Unspecified fracture of shaft of right tibia, subsequent encounter for closed fracture with routine healing; Z95.0 Presence of cardiac pacemaker; J32.4 Chronic pansinusitis; I48.91 Unspecified atrial fibrillation; R33.9 Retention of urine, unspecified; Z51.5 Encounter for palliative care; R63.0 Anorexia; S41.102A Unspecified open wound of left upper arm, initial encounter; Y33.XXXA Other specified events, undetermined intent, initial encounter; Y93.89 Activity, other specified; Y92.239 Unspecified place in hospital as the place of occurrence of the external cause; F41.9 Anxiety disorder, unspecified; Z95.2 Presence of prosthetic heart valve; Z85.3 Personal history of malignant neoplasm of breast; Z74.01 Bed confinement status
CPT/HCPCS: 36600; 70450; 70496; 70498; 70551; 71010; 71020; 76937; 80048; 80061; 80307; 81001; 82435; 82550; 82565; 82607; 82805; 82947; 83605; 84132; 84134; 84155; 84295; 84484; 84520; 85025; 85027; 85384; 85610; 85730; 86850; 86900; 86901; 87077; 87086; 87186; 93005; 93306; 93971; 94640; 94664; 95819; 96360; 96361; J0696; J0744; J1940; J2270; J7030; P9612; Q9967